=== PATIENT | male | born 1950 | race Caucasian/White ===

== ENCOUNTER 2017-10-17 12:50 | Inpatient (IN) | payer MEDICARE ==
[~2017-10-17] VITALS: Ht 172.7 cm; Wt 135.9 kg
[~2017-10-17 12:50] MED LIST: AMLO10TA2 PO; METO50TA18 PO; PRAM1TAB7 PO; TELM1TAB34 PO
[2017-10-17 15:03] LABS: BASOPHILS % (AUTO) 0.3 % (0.0-5.0); EOSINOPHILS % (AUTO) 2.2 % (0.0-8.0); HEMATOCRIT 40.1 % (42-54); LYMPHOCYTES % (AUTO) 23.9 % (21.0-51.0); MEAN CORPUSCULAR HEMOGLOBIN 28.8 pg (27.0-33.0); MEAN CORPUSCULAR HGB CONC 33.4 g/dL (32.0-36.0); MEAN CORPUSCULAR VOLUME 86.2 fL (79-99); MONOCYTES % (AUTO) 6.7 % (3.0-13.0); NEUTROPHILS % (AUTO) 66.9 % (40.0-77.0); PLATELET COUNT (AUTO) 228 K/uL (130-400); RED BLOOD CELL COUNT(AUTO) 4.65 MIL/uL (4.50-6.20); WHITE BLOOD COUNT (AUTO) 9.7 K/uL (4.8-10.8)
[2017-10-17 15:04] VITALS: BP 174/88
[2017-10-17 15:21] LABS: INR 1.06 (0.85-1.15); PARTIAL THROMBOPLASTIN TIME 29.5 SEC (26.3-35.5); PROTHROMBIN TIME 11.1 SEC (9.6-11.6)
[2017-10-17 15:24] LABS: CREATININE 0.9 mg/dL (0.5-1.5); POTASSIUM 3.8 mmol/L (3.5-5.1)
[2017-10-17] MEDS ORDERED: MELA10CA2 PO (15:33)
[2017-10-17] MEDS ORDERED: PRAM1TAB3 PO (15:33)
[2017-10-17] MEDS ORDERED: BIMA12.5OS OU (15:33)
[2017-10-17] MEDS ORDERED: MULT-1203 PO (15:34)
[2017-10-17] MEDS ORDERED: WATER FOR INJECTION,STERILE 20 ML VIAL IJ SCH (16:15)
[2017-10-18] MEDS: CEFAZOLIN SODIUM 1 GM VIAL IVP SCH (16:15)
[2017-10-19] MEDS: CEFAZOLIN SODIUM 1 GM VIAL IVP SCH (16:15)
[2017-10-20] VITALS (25 sets, daily range): BP systolic 85–178; BP diastolic 46–88
[2017-10-20] MEDS: CEFAZOLIN SODIUM 1 GM VIAL IVP SCH ×5 (07:00→23:44)
[2017-10-20] MEDS ORDERED: BUPIVACAINE/EPI/PF 0.25% 30ML VIAL IJ ONE (07:08)
[2017-10-20] MEDS ORDERED: TRANEXAMIC ACID 1000MG/10ML IV ONE (07:08)
[2017-10-20] MEDS ORDERED: CEFAZOLIN SODIUM 1 GM VIAL ONE (07:08)
[2017-10-20] MEDS ORDERED: SODIUM CHLORIDE 0.9% 1000ML 1,000 ML IV ONE (07:22)
[2017-10-20] MEDS ORDERED: GLYCOPYRROLATE 0.2 MG/ML 5 ML VIAL ONE (07:50)
[2017-10-20] MEDS ORDERED: SUCCINYLCHOLINE 200MG/10ML SYR ONE (07:50)
[2017-10-20] MEDS ORDERED: LIDOCAINE PF 2% 5ML ABBOJECT ONE (07:50)
[2017-10-20] MEDS ORDERED: NEOSTIGMINE METHYLSULFATE 1MG/ML IV ONE (07:50)
[2017-10-20] MEDS ORDERED: DEXAMETHASONE SOD PHOSPHATE 10MG/ML 1ML VIAL ONE (07:50)
[2017-10-20] MEDS ORDERED: ONDANSETRON HCL 4 MG/2 ML VIAL ONE (07:50)
[2017-10-20] MEDS ORDERED: MIDAZOLAM HCL 1 MG/ML 2ML VIAL ONE (07:51)
[2017-10-20] MEDS ORDERED: FENTANYL CITRATE PF 50 MCG/1 ML 2ML VIAL ONE ×2 (07:51→09:39)
[2017-10-20] MEDS ORDERED: PROPOFOL 10 MG/ML 20ML VIAL IV ONE (07:51)
[2017-10-20] MEDS ORDERED: ACETAMINOPHEN EXTRA STRENGTH 500 MG TABLET ONE (08:21)
[2017-10-20] MEDS ORDERED: KETOROLAC TROMETHAMINE 15MG/ML ONE (08:21)
[2017-10-20] MEDS ORDERED: OXYCODONE HCL 10 MG TAB.SR.12H PO ONE (08:22)
[2017-10-20] MEDS ORDERED: METOCLOPRAMIDE 10 MG/2 ML VIAL ONE (08:22)
[2017-10-20] MEDS ORDERED: CEFAZOLIN SODIUM 1 GM VIAL IRRIG ONE (09:27)
[2017-10-20] MEDS ORDERED: MORPHINE SULFATE 10 MG/ML 1ML SYG ONE (10:44)
[2017-10-20] MEDS ORDERED: DiphenhydrAMINE HCL 50 MG/ML VIAL IVP PRN (11:00)
[2017-10-20] MEDS ORDERED: TRAMADOL HCL 50 MG TABLET PO PRN (11:00)
[2017-10-20] MEDS ORDERED: CALCIUM CARBONATE 500 MG TABLET PO PRN (11:00)
[2017-10-20] MEDS ORDERED: POTASSIUM CHLORIDE 20 MEQ ERTAB PO PRN (11:00)
[2017-10-20] MEDS ORDERED: FERROUS FUMARATE 324 MG TABLET PO PRN (11:00)
[2017-10-20] MEDS ORDERED: PROMETHAZINE HCL 25 MG/ML 1ML AMPULE IM PRN (11:00)
[2017-10-20] MEDS ORDERED: TEMAZEPAM 15 MG CAPSULE PO PRN (11:00)
[2017-10-20] MEDS ORDERED: DIPHENHYDRAMINE HCL 25 MG CAPSULE PO PRN (11:00)
[2017-10-20] MEDS ORDERED: POTASSIUM CHLORIDE 20MEQ/100ML 100 ML IV PRN (11:00)
[2017-10-20] MEDS ORDERED: POTASSIUM CHLORIDE 10% ELIXIR 20 MEQ/15 ML UDCUP PO PRN (11:00)
[2017-10-20] MEDS ORDERED: LIDOCAINE HCL-MPF 1% 2ML VIAL IVP PRN (11:00)
[2017-10-20] MEDS: ACETAMINOPHEN 325 MG TAB PO SCH ×3 (11:00→22:46)
[2017-10-20] MEDS: INSULIN HUMULIN R 100 UNIT/ML 3ML SQ SCH ×3 (11:30→21:46)
[2017-10-20] MEDS: PSYLLIUM SEED 1 EACH PACKET PO SCH (12:00)
[2017-10-20] MEDS: SODIUM CHLORIDE 0.9% 1000ML 1,000 ML IV SCH ×2 (12:27→21:52)
[2017-10-20] MEDS: OXYCODONE HCL 5 MG TAB PO PRN ×3 (12:41→22:46)
[2017-10-20] MEDS ORDERED: PANT40TA25 PO (13:17)
[2017-10-20] MEDS ORDERED: CEFAZOLIN 3GM /D5W 100ML 100 ML IV SCH (16:00)
[2017-10-20] MEDS: WATER FOR INJECTION,STERILE 20 ML VIAL IJ SCH ×2 (16:09→23:45)
[2017-10-20] MEDS ORDERED: FAMOTIDINE 20MG TAB 20 MG TAB PO SCH (21:00)
[2017-10-20] MEDS ORDERED: PREGABALIN 25 MG CAP PO SCH (21:00)
[2017-10-20] MEDS: Bimatoprost (Lumigan 0.01% Ophth Soln) 1 DROP OU SCH (21:00)
[2017-10-20] MEDS: AMLODIPINE BESYLATE 5 MG TAB PO SCH (21:52)
[2017-10-20] MEDS: ASPIRIN 325 MG TABLET PO SCH (21:52)
[2017-10-20] MEDS: PRAMIPEXOLE DI-HCL 0.25 MG TABLET PO SCH (21:52)
[2017-10-20] MEDS: CELECOXIB 200 MG CAP PO SCH (21:52)
[2017-10-20] MEDS: PREGABALIN 75 MG CAPSULE PO SCH (21:52)
[2017-10-20] MEDS: KETOROLAC TROMETHAMINE 15MG/ML IV PRN (23:54)
[2017-10-21 04:00] VITALS: BP 163/77
[2017-10-21] MEDS: ACETAMINOPHEN 325 MG TAB PO SCH ×4 (04:43→22:46)
[2017-10-21] MEDS: OXYCODONE HCL 5 MG TAB PO PRN ×4 (04:43→20:03)
[2017-10-21 05:36] LABS: HEMATOCRIT 30.8 % (42-54); MEAN CORPUSCULAR HEMOGLOBIN 29.7 pg (27.0-33.0); MEAN CORPUSCULAR HGB CONC 34.4 g/dL (32.0-36.0); MEAN CORPUSCULAR VOLUME 86.3 fL (79-99); PLATELET COUNT (AUTO) 198 K/uL (130-400); RED BLOOD CELL COUNT(AUTO) 3.57 MIL/uL (4.50-6.20); WHITE BLOOD COUNT (AUTO) 12.6 K/uL (4.8-10.8)
[2017-10-21] MEDS: SODIUM CHLORIDE 0.9% 1000ML 1,000 ML IV SCH (05:43)
[2017-10-21 05:44] LABS: CREATININE 0.9 mg/dL (0.5-1.5); POTASSIUM 3.9 mmol/L (3.5-5.1)
[2017-10-21] MEDS: INSULIN HUMULIN R 100 UNIT/ML 3ML SQ SCH ×4 (06:22→21:40)
[2017-10-21] MEDS ORDERED: PANTOPRAZOLE SODIUM 40 MG TABLET.DR PO ONE (07:49)
[2017-10-21] MEDS: ASPIRIN 325 MG TABLET PO SCH ×2 (07:50→20:02)
[2017-10-21] MEDS: TAMSULOSIN HCL 0.4 MG CAP.ER.24H PO SCH (07:50)
[2017-10-21] MEDS: CELECOXIB 200 MG CAP PO SCH ×2 (07:50→20:02)
[2017-10-21] MEDS: METOPROLOL TARTRATE 50 MG TAB PO SCH (07:50)
[2017-10-21] MEDS: PREGABALIN 75 MG CAPSULE PO SCH ×2 (07:50→20:02)
[2017-10-21] MEDS: POLYETHYLENE GLYCOL 3350 17 GM POWD.PACK PO SCH (07:51)
[2017-10-21] MEDS: TELMISARTAN/HYDROCHLOROTHIAZID 80/12.5 MG TAB PO SCH (07:52)
[2017-10-21] MEDS: PANTOPRAZOLE SODIUM 40 MG TABLET.DR PO SCH (07:52)
[2017-10-21] MEDS: MULTIVITAMIN TABLET PO SCH (07:52)
[2017-10-21 07:53] VITALS: BP 156/73
[2017-10-21 11:28] VITALS: BP 146/73
[2017-10-21] MEDS: PSYLLIUM SEED 1 EACH PACKET PO SCH (12:04)
[2017-10-21] MEDS: KETOROLAC TROMETHAMINE 15MG/ML IV PRN ×2 (14:35→20:57)
[2017-10-21 16:26] VITALS: BP 173/78
[2017-10-21 20:00] VITALS: BP 174/78
[2017-10-21] MEDS: PRAMIPEXOLE DI-HCL 0.25 MG TABLET PO SCH (20:02)
[2017-10-21] MEDS: AMLODIPINE BESYLATE 5 MG TAB PO SCH (20:02)
[2017-10-21 20:50] LABS: APPEARANCE,URINE Clear (CLEAR); BILIRUBIN,URINE Negative (NEGATIVE); COLOR,URINE Yellow (YELLOW); GLUCOSE, URINE (UA) 500 mg/dL (NEGATIVE); KETONES,URINE Negative (NEGATIVE); LEUKOCYTE ESTERASE ,URINE Negative (NEGATIVE); NITRATE,URINE Negative (NEGATIVE); OCCULT BLOOD,URINE Large (NEGATIVE); PH,URINE 5.5 (5.0-8.0); PROTEIN,URINE Trace (NEGATIVE); UROBILINOGEN,URINE 0.2 mg/dL (0.2-1.0)
[2017-10-21] MEDS: Bimatoprost (Lumigan 0.01% Ophth Soln) 1 DROP OU SCH (21:00)
[2017-10-21 21:33] LABS: BACTERIA,URINE Rare /HPF (None Seen); MUCUS,URINE Rare LPF (None Seen); SQUAMOUS EPITHELIAL CELL,UR Rare /LPF (0-2); WBC,URINE 0-1 /HPF (0-1)
[2017-10-22] VITALS: BP 148/68
[2017-10-22 04:00] VITALS: BP 151/67
[2017-10-22] MEDS: ACETAMINOPHEN 325 MG TAB PO SCH ×4 (05:06→22:59)
[2017-10-22] MEDS: OXYCODONE HCL 5 MG TAB PO PRN ×3 (05:09→20:02)
[2017-10-22 05:44] LABS: HEMATOCRIT 27.6 % (42-54); MEAN CORPUSCULAR HEMOGLOBIN 29.3 pg (27.0-33.0); MEAN CORPUSCULAR HGB CONC 33.8 g/dL (32.0-36.0); MEAN CORPUSCULAR VOLUME 86.7 fL (79-99); PLATELET COUNT (AUTO) 175 K/uL (130-400); RED BLOOD CELL COUNT(AUTO) 3.18 MIL/uL (4.50-6.20); RED CELL DISTRIBUTION WIDTH 13.7 % (11.0-15.5); WHITE BLOOD COUNT (AUTO) 9.3 K/uL (4.8-10.8)
[2017-10-22 05:53] LABS: CREATININE 0.9 mg/dL (0.5-1.5); POTASSIUM 3.8 mmol/L (3.5-5.1)
[2017-10-22] MEDS: INSULIN HUMULIN R 100 UNIT/ML 3ML SQ SCH ×4 (06:26→21:42)
[2017-10-22 08:01] VITALS: BP 149/81
[2017-10-22] MEDS: CELECOXIB 200 MG CAP PO SCH ×2 (09:12→20:02)
[2017-10-22] MEDS: ASPIRIN 325 MG TABLET PO SCH ×2 (09:12→20:02)
[2017-10-22] MEDS: TAMSULOSIN HCL 0.4 MG CAP.ER.24H PO SCH (09:12)
[2017-10-22] MEDS: MULTIVITAMIN TABLET PO SCH (09:13)
[2017-10-22] MEDS: METOPROLOL TARTRATE 50 MG TAB PO SCH (09:13)
[2017-10-22] MEDS: TELMISARTAN/HYDROCHLOROTHIAZID 80/12.5 MG TAB PO SCH (09:13)
[2017-10-22] MEDS: PANTOPRAZOLE SODIUM 40 MG TABLET.DR PO SCH (09:13)
[2017-10-22] MEDS: PREGABALIN 75 MG CAPSULE PO SCH ×2 (09:13→20:02)
[2017-10-22] MEDS: POLYETHYLENE GLYCOL 3350 17 GM POWD.PACK PO SCH (09:13)
[2017-10-22] MEDS: KETOROLAC TROMETHAMINE 15MG/ML IV PRN (09:13)
[2017-10-22] MEDS ORDERED: BISACODYL 5 MG TABLET.DR PO PRN (11:00)
[2017-10-22 11:35] VITALS: BP 166/75
[2017-10-22] MEDS: PSYLLIUM SEED 1 EACH PACKET PO SCH (12:08)
[2017-10-22 16:45] VITALS: BP 158/70
[2017-10-22] MEDS ORDERED: ASPI-1012 PO (18:43)
[2017-10-22] MEDS ORDERED: HYDR-309 PO (18:43)
[2017-10-22] MEDS: Bimatoprost (Lumigan 0.01% Ophth Soln) 1 DROP OU SCH (19:59)
[2017-10-22 20:00] VITALS: BP 160/74
[2017-10-22] MEDS: PRAMIPEXOLE DI-HCL 0.25 MG TABLET PO SCH (20:02)
[2017-10-22] MEDS: AMLODIPINE BESYLATE 5 MG TAB PO SCH (20:02)
[2017-10-23] VITALS: BP 138/65
[2017-10-23] MEDS: OXYCODONE HCL 5 MG TAB PO PRN ×3 (02:39→10:17)
[2017-10-23 04:00] VITALS: BP 178/79
[2017-10-23] MEDS: KETOROLAC TROMETHAMINE 15MG/ML IV PRN (05:22)
[2017-10-23] MEDS: ACETAMINOPHEN 325 MG TAB PO SCH (05:22)
[2017-10-23 05:57] LABS: HEMATOCRIT 28.9 % (42-54); MEAN CORPUSCULAR HEMOGLOBIN 30.5 pg (27.0-33.0); MEAN CORPUSCULAR HGB CONC 35.3 g/dL (32.0-36.0); MEAN CORPUSCULAR VOLUME 86.4 fL (79-99); PLATELET COUNT (AUTO) 209 K/uL (130-400); RED BLOOD CELL COUNT(AUTO) 3.35 MIL/uL (4.50-6.20); RED CELL DISTRIBUTION WIDTH 13.7 % (11.0-15.5); WHITE BLOOD COUNT (AUTO) 12.9 K/uL (4.8-10.8)
[2017-10-23 06:05] LABS: POTASSIUM 3.9 mmol/L (3.5-5.1)
[2017-10-23] MEDS: INSULIN HUMULIN R 100 UNIT/ML 3ML SQ SCH (07:17)
[2017-10-23] MEDS: POLYETHYLENE GLYCOL 3350 17 GM POWD.PACK PO SCH (08:22)
[2017-10-23] MEDS: METOPROLOL TARTRATE 50 MG TAB PO SCH (08:23)
[2017-10-23] MEDS: ASPIRIN 325 MG TABLET PO SCH (08:23)
[2017-10-23] MEDS: PANTOPRAZOLE SODIUM 40 MG TABLET.DR PO SCH (08:23)
[2017-10-23] MEDS: CELECOXIB 200 MG CAP PO SCH (08:23)
[2017-10-23] MEDS: TAMSULOSIN HCL 0.4 MG CAP.ER.24H PO SCH (08:23)
[2017-10-23] MEDS: MULTIVITAMIN TABLET PO SCH (08:23)
[2017-10-23] MEDS: PREGABALIN 75 MG CAPSULE PO SCH (08:23)
[2017-10-23] MEDS: TELMISARTAN/HYDROCHLOROTHIAZID 80/12.5 MG TAB PO SCH (08:23)
[2017-10-23 08:51] VITALS: BP 184/89
[2017-10-23] MEDS ORDERED: BISACODYL 10 MG SUPP.RECT RC PRN (11:00)
== END 2017-10-23 10:27 | DRG 470 ==
LOC: DAHIP 10-20 06:24 → 4AH 10-20 11:40
PROVIDERS: ADMIT Orthopaedic Surgery; ATTEND Orthopaedic Surgery
PROC: 0SRD0J9 Replacement of Left Knee Joint with Synthetic Substitute, Cemented, Open Approach (ICD-10-PCS; principal; 2017-10-20 08:32)
PROC: 5A09357 Assistance with Respiratory Ventilation, Less than 24 Consecutive Hours, Continuous Positive Airway Pressure (ICD-10-PCS; 2017-10-21)
DX: M17.0 Bilateral primary osteoarthritis of knee (principal); E66.01 Morbid (severe) obesity due to excess calories; Z68.42 Body mass index [BMI] 45.0-49.9, adult; E11.9 Type 2 diabetes mellitus without complications; G89.29 Other chronic pain; I10 Essential (primary) hypertension; I25.10 Atherosclerotic heart disease of native coronary artery without angina pectoris; G47.30 Sleep apnea, unspecified; L40.9 Psoriasis, unspecified; Z98.42 Cataract extraction status, left eye; Z98.41 Cataract extraction status, right eye; Z98.84 Bariatric surgery status; Z83.1 Family history of other infectious and parasitic diseases; Z80.9 Family history of malignant neoplasm, unspecified; Z87.891 Personal history of nicotine dependence; Z88.2 Allergy status to sulfonamides; Z88.8 Allergy status to other drugs, medicaments and biological substances
CPT/HCPCS: 36415; 80048; 81001; 82948; 85025; 85027; 85610; 85730; 88305; 88311; 96374; 96375; C1713; J0330; J0690; J1100; J1815; J1885; J2001; J2250; J2270; J2405; J2704; J2710; J2765; J3010; J3490; J7030

== ENCOUNTER 2018-01-27 14:00 | Inpatient (IN) | payer MEDICARE ==
[~2018-01-27] VITALS: Ht 175.3 cm; Wt 136.4 kg
[~2018-01-27 14:00] MED LIST changes: +BIMA12.5OS OU; +MELA10CA2 PO; +MULT-1203 PO; +PANT40TA25 PO; +PRAM1TAB3 PO
[2018-01-27 15:30] VITALS: BP 180/80
[2018-01-27] MEDS ORDERED: PHARMACY COMMUNICATION MISC SCH (15:30)
[2018-01-27] MEDS ORDERED: LOSA1TAB42 PO (15:47)
[2018-01-27 16:03] LABS: CREATININE 0.8 mg/dL (0.5-1.5); POTASSIUM 4.2 mmol/L (3.5-5.1)
[2018-01-27 16:17] LABS: INR 0.99 (0.85-1.15); PARTIAL THROMBOPLASTIN TIME 27.5 SEC (26.3-35.5); PROTHROMBIN TIME 10.4 SEC (9.6-11.6)
[2018-01-27 16:37] LABS: APPEARANCE,URINE CLEAR (CLEAR); BILIRUBIN,URINE NEGATIVE (NEGATIVE); COLOR,URINE YELLOW (YELLOW); GLUCOSE, URINE (UA) NEGATIVE (NEGATIVE); KETONES,URINE NEGATIVE (NEGATIVE); LEUKOCYTE ESTERASE ,URINE NEGATIVE (NEGATIVE); NITRATE,URINE NEGATIVE (NEGATIVE); OCCULT BLOOD,URINE NEGATIVE (NEGATIVE); PH,URINE 5.5 (5.0-8.0); PROTEIN,URINE TRACE (NEGATIVE); UROBILINOGEN,URINE 0.2 mg/dL (0.2-1.0)
[2018-01-27 16:41] LABS: BACTERIA,URINE Rare /HPF (None Seen); RBC,URINE None Seen /HPF (0-1); WBC,URINE 0-1 /HPF (0-1)
[2018-01-28] VITALS (21 sets, daily range): BP systolic 148–197; BP diastolic 58–94
[2018-01-28] MEDS ORDERED: TRANEXAMIC ACID 1000MG/10ML IV ONE (09:15)
[2018-01-28] MEDS ORDERED: CEFAZOLIN SODIUM 1 GM VIAL ONE ×2 (09:15→09:23)
[2018-01-28] MEDS ORDERED: BUPIVACAINE/EPI/PF 0.25% 30ML VIAL IJ ONE (09:15)
[2018-01-28] MEDS ORDERED: NEOSTIGMINE 5MG/5ML SYR IV ONE (09:17)
[2018-01-28] MEDS ORDERED: ROPIVACAINE 0.5% 5MG/ML 30ML IJ ONE (09:17)
[2018-01-28] MEDS ORDERED: LIDOCAINE HCL-MPF 1% 5ML AMP IJ ONE ×2 (09:18→11:18)
[2018-01-28] MEDS ORDERED: MIDAZOLAM HCL 1 MG/ML 2ML VIAL ONE (09:18)
[2018-01-28] MEDS ORDERED: ROCURONIUM BROMIDE 10MG/1ML 5ML VL ONE ×2 (09:18→11:18)
[2018-01-28] MEDS ORDERED: FENTANYL CITRATE PF 50 MCG/1 ML 2ML VIAL ONE ×4 (09:18→13:05)
[2018-01-28] MEDS ORDERED: PROPOFOL 10 MG/ML 20ML VIAL IV ONE ×2 (09:18→11:36)
[2018-01-28] MEDS ORDERED: ACETAMINOPHEN EXTRA STRENGTH 500 MG TABLET ONE (09:19)
[2018-01-28] MEDS ORDERED: KETOROLAC TROMETHAMINE 15MG/ML ONE (09:19)
[2018-01-28] MEDS ORDERED: OXYCODONE HCL 10 MG TAB.SR.12H PO ONE (09:20)
[2018-01-28] MEDS ORDERED: SODIUM CHLORIDE 0.9% 1000ML 1,000 ML IV ONE (09:23)
[2018-01-28] MEDS ORDERED: TAMS0.4C32 PO (09:57)
[2018-01-28] MEDS ORDERED: PHENYLEPHRINE HCL 10 MG/ML 1ML VIAL IV ONE (11:19)
[2018-01-28] MEDS ORDERED: EPHEDRINE SULFATE 50 MG/ML AMPULE ONE (11:19)
[2018-01-28] MEDS ORDERED: POTASSIUM CHLORIDE 20MEQ/100ML 100 ML IV PRN (13:00)
[2018-01-28] MEDS ORDERED: CALCIUM CARBONATE 500 MG TABLET PO PRN (13:00)
[2018-01-28] MEDS ORDERED: DiphenhydrAMINE HCL 50 MG/ML VIAL IVP PRN (13:00)
[2018-01-28] MEDS ORDERED: DIPHENHYDRAMINE HCL 25 MG CAPSULE PO PRN (13:00)
[2018-01-28] MEDS ORDERED: TRAMADOL HCL 50 MG TABLET PO PRN (13:00)
[2018-01-28] MEDS ORDERED: POTASSIUM CHLORIDE 10% ELIXIR 20 MEQ/15 ML UDCUP PO PRN (13:00)
[2018-01-28] MEDS: ACETAMINOPHEN 325 MG TAB PO SCH ×2 (13:00→17:06)
[2018-01-28] MEDS ORDERED: TEMAZEPAM 15 MG CAPSULE PO PRN (13:00)
[2018-01-28] MEDS ORDERED: FERROUS FUMARATE 324 MG TABLET PO PRN (13:00)
[2018-01-28] MEDS ORDERED: POTASSIUM CHLORIDE 20 MEQ ERTAB PO PRN (13:00)
[2018-01-28] MEDS ORDERED: LIDOCAINE HCL-MPF 1% 2ML VIAL IVP PRN (13:00)
[2018-01-28] MEDS: KETOROLAC TROMETHAMINE 15MG/ML IV PRN ×2 (15:04→21:27)
[2018-01-28] MEDS: SODIUM CHLORIDE 0.9% 1000ML 1,000 ML IV SCH (15:05)
[2018-01-28] MEDS: INSULIN HUMULIN R 100 UNIT/ML 3ML SQ SCH ×2 (15:31→21:13)
[2018-01-28] MEDS: OXYCODONE HCL 5 MG TAB PO PRN ×2 (15:37→19:47)
[2018-01-28] MEDS: CEFAZOLIN 3GM /D5W 100ML 100 ML IV SCH (17:04)
[2018-01-28] MEDS ORDERED: CEFAZOLIN 3GM /D5W 100ML 100 ML IV SCH (18:00)
[2018-01-28] MEDS ORDERED: CEFAZOLIN SODIUM 1 GM VIAL IVP SCH (18:00)
[2018-01-28] MEDS: LATANOPROST 2.5 ML DROPS OU SCH (19:46)
[2018-01-28] MEDS: AMLODIPINE BESYLATE 5 MG TAB PO SCH (19:46)
[2018-01-28] MEDS: HYDROCHLOROTHIAZIDE 25 MG TABLET PO SCH (19:46)
[2018-01-28] MEDS: PRAMIPEXOLE DI-HCL 0.25 MG TABLET PO SCH (19:46)
[2018-01-28] MEDS: ASPIRIN 325 MG TABLET PO SCH (19:46)
[2018-01-28] MEDS: LOSARTAN 100 MG TABLET PO SCH (19:46)
[2018-01-28] MEDS: PREGABALIN 75 MG CAPSULE PO SCH (19:46)
[2018-01-29] VITALS (7 sets, daily range): BP systolic 139–190; BP diastolic 72–93
[2018-01-29] MEDS: ACETAMINOPHEN 325 MG TAB PO SCH ×4 (01:31→18:13)
[2018-01-29] MEDS: OXYCODONE HCL 5 MG TAB PO PRN ×3 (01:31→16:15)
[2018-01-29] MEDS: CEFAZOLIN 3GM /D5W 100ML 100 ML IV SCH (01:32)
[2018-01-29] MEDS: SODIUM CHLORIDE 0.9% 1000ML 1,000 ML IV SCH ×2 (01:46→08:51)
[2018-01-29] MEDS: METOPROLOL TARTRATE 50 MG TAB PO SCH (04:54)
[2018-01-29 05:43] LABS: HEMATOCRIT 30.4 % (42-54); MEAN CORPUSCULAR HEMOGLOBIN 27.4 pg (27.0-33.0); MEAN CORPUSCULAR HGB CONC 33.1 g/dL (32.0-36.0); MEAN CORPUSCULAR VOLUME 82.9 fL (79-99); PLATELET COUNT (AUTO) 273 K/uL (130-400); RED BLOOD CELL COUNT(AUTO) 3.67 MIL/uL (4.50-6.20); RED CELL DISTRIBUTION WIDTH 15.1 % (11.0-15.5); WHITE BLOOD COUNT (AUTO) 13.5 K/uL (4.8-10.8)
[2018-01-29 05:46] LABS: CREATININE 0.8 mg/dL (0.5-1.5); POTASSIUM 4.2 mmol/L (3.5-5.1)
[2018-01-29] MEDS: INSULIN HUMULIN R 100 UNIT/ML 3ML SQ SCH ×4 (06:44→20:28)
[2018-01-29] MEDS: PREGABALIN 75 MG CAPSULE PO SCH ×2 (08:26→19:28)
[2018-01-29] MEDS: POLYETHYLENE GLYCOL 3350 17 GM POWD.PACK PO SCH (08:26)
[2018-01-29] MEDS: ASPIRIN 325 MG TABLET PO SCH ×2 (08:27→19:28)
[2018-01-29] MEDS: PANTOPRAZOLE SODIUM 40 MG TABLET.DR PO SCH (08:27)
[2018-01-29] MEDS: MULTIVITAMIN TABLET PO SCH (08:27)
[2018-01-29] MEDS ORDERED: TAMSULOSIN HCL 0.4 MG CAP.ER.24H PO SCH ×2 (09:00)
[2018-01-29] MEDS: PSYLLIUM SEED 1 EACH PACKET PO SCH (11:53)
[2018-01-29] MEDS: AMLODIPINE BESYLATE 5 MG TAB PO SCH (19:28)
[2018-01-29] MEDS: PRAMIPEXOLE DI-HCL 0.25 MG TABLET PO SCH (19:28)
[2018-01-29] MEDS: LOSARTAN 100 MG TABLET PO SCH (19:28)
[2018-01-29] MEDS: HYDROCHLOROTHIAZIDE 25 MG TABLET PO SCH (19:29)
[2018-01-29] MEDS: LATANOPROST 2.5 ML DROPS OU SCH (19:31)
[2018-01-29] MEDS: KETOROLAC TROMETHAMINE 15MG/ML IV PRN (21:07)
[2018-01-30] MEDS: ACETAMINOPHEN 325 MG TAB PO SCH ×4 (01:13→18:53)
[2018-01-30 04:00] VITALS: BP 181/81
[2018-01-30] MEDS: KETOROLAC TROMETHAMINE 15MG/ML IV PRN (05:00)
[2018-01-30] MEDS: INSULIN HUMULIN R 100 UNIT/ML 3ML SQ SCH ×4 (05:46→21:00)
[2018-01-30 06:25] LABS: HEMATOCRIT 29.5 % (42-54); MEAN CORPUSCULAR HEMOGLOBIN 28.1 pg (27.0-33.0); MEAN CORPUSCULAR HGB CONC 34.3 g/dL (32.0-36.0); MEAN CORPUSCULAR VOLUME 81.9 fL (79-99); PLATELET COUNT (AUTO) 240 K/uL (130-400); RED CELL DISTRIBUTION WIDTH 15.4 % (11.0-15.5); WHITE BLOOD COUNT (AUTO) 11.5 K/uL (4.8-10.8)
[2018-01-30 06:35] LABS: CREATININE 0.7 mg/dL (0.5-1.5); POTASSIUM 3.8 mmol/L (3.5-5.1)
[2018-01-30 07:56] VITALS: BP 156/83
[2018-01-30] MEDS: POLYETHYLENE GLYCOL 3350 17 GM POWD.PACK PO SCH (08:00)
[2018-01-30] MEDS: METOPROLOL TARTRATE 50 MG TAB PO SCH (08:00)
[2018-01-30] MEDS: TAMSULOSIN HCL 0.4 MG CAP.ER.24H PO SCH (08:00)
[2018-01-30] MEDS: ASPIRIN 325 MG TABLET PO SCH ×2 (08:00→21:02)
[2018-01-30] MEDS: PREGABALIN 75 MG CAPSULE PO SCH ×2 (08:00→21:02)
[2018-01-30] MEDS: OXYCODONE HCL 5 MG TAB PO PRN ×3 (08:01→18:54)
[2018-01-30] MEDS: MULTIVITAMIN TABLET PO SCH (08:01)
[2018-01-30] MEDS: PANTOPRAZOLE SODIUM 40 MG TABLET.DR PO SCH (08:07)
[2018-01-30] MEDS: HCT PO SCH (09:00)
[2018-01-30] MEDS: MICARDIS PO SCH (09:00)
[2018-01-30 11:38] VITALS: BP 130/80
[2018-01-30] MEDS: PSYLLIUM SEED 1 EACH PACKET PO SCH (12:54)
[2018-01-30 16:00] VITALS: BP 114/57
[2018-01-30 20:00] VITALS: BP 168/75
[2018-01-30] MEDS: LATANOPROST 2.5 ML DROPS OU SCH (21:00)
[2018-01-30] MEDS: LOSARTAN 100 MG TABLET PO SCH (21:01)
[2018-01-30] MEDS: HYDROCHLOROTHIAZIDE 25 MG TABLET PO SCH (21:01)
[2018-01-30] MEDS: AMLODIPINE BESYLATE 5 MG TAB PO SCH (21:02)
[2018-01-30] MEDS: PRAMIPEXOLE DI-HCL 0.25 MG TABLET PO SCH (21:03)
[2018-01-31] VITALS: BP 135/68
[2018-01-31] MEDS: ACETAMINOPHEN 325 MG TAB PO SCH ×3 (01:30→13:11)
[2018-01-31] MEDS: OXYCODONE HCL 5 MG TAB PO PRN ×3 (01:31→13:11)
[2018-01-31 04:00] VITALS: BP 142/77
[2018-01-31 06:08] LABS: HEMATOCRIT 27.7 % (42-54); MEAN CORPUSCULAR HEMOGLOBIN 28.5 pg (27.0-33.0); MEAN CORPUSCULAR HGB CONC 34.4 g/dL (32.0-36.0); MEAN CORPUSCULAR VOLUME 82.9 fL (79-99); NUCLEATED RED BLOOD CELLS 0.1 % (0.0-0.19); PLATELET COUNT (AUTO) 213 K/uL (130-400); RED BLOOD CELL COUNT(AUTO) 3.34 MIL/uL (4.50-6.20); RED CELL DISTRIBUTION WIDTH 15.6 % (11.0-15.5); WHITE BLOOD COUNT (AUTO) 11.1 K/uL (4.8-10.8)
[2018-01-31] MEDS: INSULIN HUMULIN R 100 UNIT/ML 3ML SQ SCH ×2 (06:12→11:30)
[2018-01-31 06:14] LABS: CREATININE 0.9 mg/dL (0.5-1.5)
[2018-01-31 08:00] VITALS: BP 147/76
[2018-01-31] MEDS: HCT PO SCH (09:00)
[2018-01-31] MEDS: MICARDIS PO SCH (09:00)
[2018-01-31] MEDS: POLYETHYLENE GLYCOL 3350 17 GM POWD.PACK PO SCH (10:03)
[2018-01-31] MEDS: METOPROLOL TARTRATE 50 MG TAB PO SCH (10:03)
[2018-01-31] MEDS: ASPIRIN 325 MG TABLET PO SCH (10:03)
[2018-01-31] MEDS: PREGABALIN 75 MG CAPSULE PO SCH (10:03)
[2018-01-31] MEDS: PANTOPRAZOLE SODIUM 40 MG TABLET.DR PO SCH (10:03)
[2018-01-31] MEDS: MULTIVITAMIN TABLET PO SCH (10:03)
[2018-01-31] MEDS: TAMSULOSIN HCL 0.4 MG CAP.ER.24H PO SCH (10:03)
[2018-01-31 11:48] VITALS: BP 146/77
[2018-01-31] MEDS ORDERED: ASPI-1012 PO (12:54)
[2018-01-31] MEDS ORDERED: TAMS-1 PO (12:54)
[2018-01-31] MEDS ORDERED: HYDR-309 PO (12:54)
[2018-01-31] MEDS ORDERED: BISACODYL 10 MG SUPP.RECT RC PRN (13:00)
[2018-01-31] MEDS: PSYLLIUM SEED 1 EACH PACKET PO SCH (13:18)
== END 2018-01-31 15:50 | DRG 470 ==
LOC: EDSTATUS 14:00 → DAHIP 01-28 08:24 → 4AH 01-28 14:48
PROVIDERS: ADMIT Orthopaedic Surgery; ATTEND Orthopaedic Surgery
PROC: 0SRC0J9 Replacement of Right Knee Joint with Synthetic Substitute, Cemented, Open Approach (ICD-10-PCS; principal; 2018-01-28 11:21)
DX: M17.11 Unilateral primary osteoarthritis, right knee (principal); Z68.41 Body mass index [BMI] 40.0-44.9, adult; E11.9 Type 2 diabetes mellitus without complications; I10 Essential (primary) hypertension; N40.1 Benign prostatic hyperplasia with lower urinary tract symptoms; I25.10 Atherosclerotic heart disease of native coronary artery without angina pectoris; R33.8 Other retention of urine; E66.9 Obesity, unspecified; L40.9 Psoriasis, unspecified; Z96.652 Presence of left artificial knee joint; Z98.84 Bariatric surgery status; Z98.42 Cataract extraction status, left eye; Z98.41 Cataract extraction status, right eye; Z88.1 Allergy status to other antibiotic agents; Z88.8 Allergy status to other drugs, medicaments and biological substances; Z80.9 Family history of malignant neoplasm, unspecified
CPT/HCPCS: 36415; 76770; 80048; 81001; 82948; 85027; 85610; 85730; 88305; 88311; 93005; 97039; A4218; A4344; C1713; J0690; J1815; J1885; J2250; J2370; J2704; J2710; J2795; J3010; J3490; J7030

== ENCOUNTER → 2020-08-09 | Outpatient (CLI) | payer MEDICARE ==
[~2020-08-09] MED LIST changes: +AMLO-258 PO; -AMLO10TA2 PO; +ASPI-1012 PO; +HYDR-4457 PO; +LOSA1TAB42 PO; -PANT40TA25 PO; +PANT40TA54 PO; -PRAM1TAB7 PO; +TAMS-1 PO
== END | disposition home or self-care (01) ==
LOC: SHCH 15:31
PROVIDERS: ATTEND Internal Medicine Cardiovascular Disease
DX: I87.2 Venous insufficiency (chronic) (peripheral) (principal); K21.9 Gastro-esophageal reflux disease without esophagitis
CPT/HCPCS: 93970

== ENCOUNTER → 2020-08-15 | Outpatient (CLI) | payer MEDICARE ==
[~2020-08-15] MED LIST changes: +REGADENOSON 0.4 MG/5 ML PF SYG IVP SCH
== END | disposition home or self-care (01) ==
LOC: SHCH 08:30
PROVIDERS: ATTEND Internal Medicine Cardiovascular Disease
DX: I20.9 Angina pectoris, unspecified (principal); R06.00 Dyspnea, unspecified
CPT/HCPCS: 78452; 93017; 96374; A9500 ×2; J2785

== ENCOUNTER 2022-11-25 07:03 | Day surgery (SDC) | payer MEDICARE ==
[2022-11-21 11:19] VITALS: BP 204/85
[2022-11-25] VITALS (18 sets, daily range): BP systolic 129–194; BP diastolic 61–111
[~2022-11-25] VITALS: Ht 177.8 cm; Wt 140.4 kg
[~2022-11-25 07:03] MED LIST changes: -AMLO-258 PO; -ASPI-1012 PO; +BUPIVACAINE/PF 0.5% 30ML VIAL ONE; +DOXA8TAB81 PO; +FURO20TA4 PO; -HYDR-4457 PO; +ISOS30TA92 PO; -LOSA1TAB42 PO; +LOSA1TAB54 PO; +METF-444 PO; -MULT-1203 PO; -PANT40TA54 PO; +PRAM0.754 PO; -PRAM1TAB3 PO; -REGADENOSON 0.4 MG/5 ML PF SYG IVP SCH; +SEMA1PEN3 SQ; -TAMS-1 PO; -TELM1TAB34 PO
[2022-11-25 07:46] LABS: BASOPHILS % (AUTO) 0.2 % (0.0-5.0); EOSINOPHILS % (AUTO) 1.7 % (0.0-8.0); HEMATOCRIT 34.3 % (42-54); LYMPHOCYTES % (AUTO) 29.8 % (21.0-51.0); MEAN CORPUSCULAR HEMOGLOBIN 28.4 pg (27.0-33.0); MEAN CORPUSCULAR HGB CONC 32.1 g/dL (32.0-36.0); MEAN CORPUSCULAR VOLUME 88.6 fL (79-99); MONOCYTES % (AUTO) 9.1 % (3.0-13.0); PLATELET COUNT (AUTO) 208 K/uL (130-400); RED BLOOD CELL COUNT(AUTO) 3.87 MIL/uL (4.50-6.20); RED CELL DISTRIBUTION WIDTH 14.9 % (11.0-15.5); WHITE BLOOD COUNT (AUTO) 8.2 K/uL (4.8-10.8)
[2022-11-25] MEDS ORDERED: 0.9%NACL 1000ML 1,000 ML IV ONE (08:27)
[2022-11-25] MEDS ORDERED: CEFAZOLIN SODIUM 1 GM VIAL ONE (08:29)
[2022-11-25] MEDS ORDERED: FAMOTIDINE 20MG VIAL IV ONE (08:41)
[2022-11-25] MEDS ORDERED: HYDROMORPHONE 1 MG INJ ONE (08:42)
[2022-11-25] MEDS ORDERED: SUCCINYLCHOLINE 200MG/10ML SYR ONE (08:45)
[2022-11-25] MEDS ORDERED: LIDOCAINE PF 100MG/5ML (2%) SYRINGE 5ML ONE (08:45)
[2022-11-25] MEDS ORDERED: GLYCOPYRROLATE 1 MG/5 ML SYRINGE ONE (08:45)
[2022-11-25] MEDS ORDERED: PROPOFOL 10 MG/ML 20ML VIAL IV ONE (08:45)
[2022-11-25] MEDS ORDERED: FENTANYL CITRATE PF 50 MCG/1 ML 2ML VIAL ONE ×2 (08:45→11:09)
[2022-11-25] MEDS ORDERED: ROCURONIUM 10MG/1ML SYR 10 MG/ML ML ONE (09:14)
[2022-11-25] MEDS: CEFAZOLIN SODIUM 2 GM VIAL IVPB SCH ×2 (09:27→09:30)
[2022-11-25] MEDS ORDERED: NEOSTIGMINE 5MG/5ML SYR IV ONE (10:40)
[2022-11-25] MEDS ORDERED: ONDANSETRON 4MG INJ ONE (10:57)
[2022-11-25] MEDS ORDERED: HYDRALAZINE 20MG/ML VIAL ONE (11:05)
[2022-11-25] MEDS ORDERED: ACETAMINOPHEN 325 MG TAB ONE (12:28)
[2022-11-25] MEDS ORDERED: ACETAMINOPHEN 325 MG TAB PO PRN (13:00)
== END 2022-11-25 12:45 | disposition home or self-care (01) ==
LOC: DAH 07:03
PROVIDERS: ATTEND Surgery
DX: K43.0 Incisional hernia with obstruction, without gangrene (principal); M17.11 Unilateral primary osteoarthritis, right knee; I11.0 Hypertensive heart disease with heart failure; I50.9 Heart failure, unspecified; E11.9 Type 2 diabetes mellitus without complications; H40.9 Unspecified glaucoma; E78.5 Hyperlipidemia, unspecified; E66.01 Morbid (severe) obesity due to excess calories; M19.90 Unspecified osteoarthritis, unspecified site; Z79.84 Long term (current) use of oral hypoglycemic drugs; Z79.899 Other long term (current) drug therapy; Z72.89 Other problems related to lifestyle; Z87.891 Personal history of nicotine dependence; Z98.84 Bariatric surgery status; Z68.41 Body mass index [BMI] 40.0-44.9, adult; Z98.890 Other specified postprocedural states; Z20.822 Contact with and (suspected) exposure to COVID-19
CPT/HCPCS: 87426; 49592; 85025; 82948 ×2; 36415; 93005; A4663; A4452; C1781; J3490 ×3; J3010 ×2; J0690; J1170; J0330; J2710; J7030; J2001; J0360; J2704; J2405; G0168; A4930; A4215; A4223; A4222; A4221; A4600

== ENCOUNTER → 2023-08-13 | Outpatient (CLI) | payer MEDICARE ==
[~2023-08-13] MED LIST changes: -BUPIVACAINE/PF 0.5% 30ML VIAL ONE
== END | disposition home or self-care (01) ==
LOC: SHCH 13:11
PROVIDERS: ATTEND Internal Medicine Cardiovascular Disease
DX: I08.3 Combined rheumatic disorders of mitral, aortic and tricuspid valves (principal); I48.0 Paroxysmal atrial fibrillation; I11.9 Hypertensive heart disease without heart failure
CPT/HCPCS: 93306

== ENCOUNTER → 2023-08-25 | Outpatient (CLI) | payer MEDICARE | END | disposition home or self-care (01) | LOC: SHCH 10:21 | PROVIDERS: ATTEND Internal Medicine Cardiovascular Disease | DX: I87.2 Venous insufficiency (chronic) (peripheral) (principal); I87.1 Compression of vein | CPT/HCPCS: 93970 ==

== ENCOUNTER → 2023-09-16 | Outpatient (CLI) | payer MEDICARE ==
[2023-09-16 12:23] LABS: BASOPHILS # (AUTO) 0.02 K/uL (0.00-0.20); BASOPHILS % (AUTO) 0.2 % (0.0-5.0); EOSINOPHILS # (AUTO) 0.12 K/uL (0.00-0.70); EOSINOPHILS % (AUTO) 1.1 % (0.0-8.0); HEMATOCRIT 40.9 % (42-54); IMMATURE GRANULOCYTE ABSOLUTE 0.06 K/uL (0-1); LYMPHOCYTES # (AUTO) 2.8 K/uL (1.0-4.8); LYMPHOCYTES % (AUTO) 25.9 % (21.0-51.0); MEAN CORPUSCULAR HEMOGLOBIN 28.3 pg (27.0-33.0); MEAN CORPUSCULAR HGB CONC 31.1 g/dL (32.0-36.0); MEAN CORPUSCULAR VOLUME 91.1 fL (79-99); MONOCYTES # (AUTO) 0.8 K/uL (0.1-1.0); MONOCYTES % (AUTO) 7.1 % (3.0-13.0); NEUTROPHILS # (AUTO) 7.1 K/uL (1.8-7.7); NEUTROPHILS % (AUTO) 65.1 % (40.0-77.0); PLATELET COUNT (AUTO) 206 K/uL (130-400); RED BLOOD CELL COUNT(AUTO) 4.49 MIL/uL (4.50-6.20); RED CELL DISTRIBUTION WIDTH 15.6 % (11.0-15.5); WHITE BLOOD COUNT (AUTO) 10.9 K/uL (4.8-10.8)
[2023-09-16 12:54] LABS: CREATININE 1.4 mg/dL (0.5-1.5); POTASSIUM 4.8 mmol/L (3.5-5.1); THYROID STIMULATING HORMONE 2.23 uIU/mL (0.36-3.74)
== END | disposition home or self-care (01) ==
LOC: LAB 10:22
PROVIDERS: ATTEND Internal Medicine Cardiovascular Disease
DX: I10 Essential (primary) hypertension (principal); I48.91 Unspecified atrial fibrillation
CPT/HCPCS: 36415; 80048; 83880; 84443; 84484; 85025

== ENCOUNTER 2023-09-29 08:57 | Observation (INO) | payer MEDICARE ==
[2023-09-29] VITALS (17 sets, daily range): BP systolic 87–124; BP diastolic 64–91; PULSE 84–108; RESP 14–20; O2SAT 98
[~2023-09-29] VITALS: Ht 177.8 cm; Wt 90.4 kg
[2023-09-29 10:00] LABS: BASOPHILS # (AUTO) 0.02 K/uL (0.00-0.20); BASOPHILS % (AUTO) 0.2 % (0.0-5.0); EOSINOPHILS # (AUTO) 0.11 K/uL (0.00-0.70); EOSINOPHILS % (AUTO) 1.2 % (0.0-8.0); HEMATOCRIT 39.9 % (42-54); IMMATURE GRANULOCYTE ABSOLUTE 0.02 K/uL (0-1); LYMPHOCYTES # (AUTO) 2.5 K/uL (1.0-4.8); LYMPHOCYTES % (AUTO) 26.3 % (21.0-51.0); MEAN CORPUSCULAR HEMOGLOBIN 27.9 pg (27.0-33.0); MEAN CORPUSCULAR HGB CONC 31.1 g/dL (32.0-36.0); MEAN CORPUSCULAR VOLUME 89.9 fL (79-99); MONOCYTES # (AUTO) 0.7 K/uL (0.1-1.0); MONOCYTES % (AUTO) 7.2 % (3.0-13.0); NEUTROPHILS # (AUTO) 6.2 K/uL (1.8-7.7); NEUTROPHILS % (AUTO) 64.9 % (40.0-77.0); PLATELET COUNT (AUTO) 199 K/uL (130-400); RED BLOOD CELL COUNT(AUTO) 4.44 MIL/uL (4.50-6.20); RED CELL DISTRIBUTION WIDTH 16.1 % (11.0-15.5); WHITE BLOOD COUNT (AUTO) 9.5 K/uL (4.8-10.8)
[2023-09-29 10:09] LABS: CREATININE 1.3 mg/dL (0.5-1.5); POTASSIUM 4.8 mmol/L (3.5-5.1)
[2023-09-29 10:15] LABS: INR 1.1 (0.85-1.15); PROTHROMBIN TIME 12.7 SEC (9.6-11.6)
[2023-09-29 10:16] LABS: PARTIAL THROMBOPLASTIN TIME 30.7 SEC (26.3-35.5)
[2023-09-29] MEDS ORDERED: LIDOCAINE HCL 2% VISCOUS 15 ML UDCUP ONE (11:11)
[2023-09-29] MEDS ORDERED: 0.9%NACL 1000ML 1,000 ML IV ONE (11:11)
[2023-09-29] MEDS ORDERED: AMOX1TAB16 PO (11:37)
[2023-09-29] MEDS ORDERED: APIX5TAB PO (11:37)
[2023-09-29] MEDS ORDERED: FERR-82 PO (11:37)
[2023-09-29] MEDS ORDERED: PREVAGEN PO (11:37)
[2023-09-29] MEDS ORDERED: BUME1TAB7 PO (11:37)
[2023-09-29] MEDS ORDERED: LUTE1CAP4 PO (11:37)
[2023-09-29] MEDS ORDERED: ASPI-1026 PO (11:37)
[2023-09-29] MEDS ORDERED: METO-409 PO (11:37)
[2023-09-29] MEDS ORDERED: CEPH500C2 PO (11:37)
[2023-09-29] MEDS ORDERED: MIDAZOLAM HCL 1 MG/ML 2ML VIAL ONE (11:40)
[2023-09-29] MEDS ORDERED: FLUMAZENIL 0.1MG/1ML 5ML VIAL IV ONE (11:40)
[2023-09-29] MEDS ORDERED: NALOXONE HCL 0.4 MG/1 ML ML ONE (11:40)
[2023-09-29] MEDS ORDERED: FENTANYL CITRATE PF 50 MCG/1 ML 2ML VIAL ONE (11:40)
[2023-09-29] MEDS ORDERED: AMIODARONE 150MG VIAL 150 MG in DEXTROSE 5%-WATER 100 ML IV SCH (12:30)
[2023-09-29] MEDS ORDERED: AMIODARONE 900MG VIAL 360 MG in DEXTROSE 5%-WATER 200 ML IV SCH (12:30)
[2023-09-29] MEDS: AMIODARONE 900MG VIAL 540 MG in DEXTROSE 5%-WATER 300 ML IV SCH ×4 (13:28→21:38)
[2023-09-29] MEDS ORDERED: MAG/ALUM/SIMETH 30 ML UDCUP PO PRN (14:00)
[2023-09-29] MEDS ORDERED: MAGNESIUM 2GM PREMIX 50ML 50 ML IV PRN (14:00)
[2023-09-29] MEDS ORDERED: POTASSIUM CHLORIDE 20MEQ/100ML 100 ML IV PRN (14:00)
[2023-09-29] MEDS ORDERED: DEXTROSE 50%-WATER 50 ML DISP.SYRIN IV PRN (14:00)
[2023-09-29] MEDS ORDERED: POTASSIUM CHLORIDE 10% ELIXIR 20 MEQ/15 ML UDCUP PO PRN (14:00)
[2023-09-29] MEDS ORDERED: KCL 20 MEQ ERTAB PO PRN (14:00)
[2023-09-29] MEDS ORDERED: GLUCAGON 1MG KIT 1 MG ML IM PRN (14:00)
[2023-09-29] MEDS ORDERED: ONDANSETRON 4MG INJ IV PRN (14:00)
[2023-09-29] MEDS ORDERED: ACETAMINOPHEN 325 MG TAB PO PRN ×2 (14:00)
[2023-09-29 14:11] LABS: HEMOGLOBIN A1C 6.7 % (4.0-6.0)
[2023-09-29] MEDS ORDERED: CEFTRIAXONE 1G VIAL IVPB SCH (14:30)
[2023-09-29] MEDS: INSULIN HUMULIN R 100 UNIT/ML 3ML SQ SCH ×2 (16:30→22:07)
[2023-09-29] MEDS ORDERED: NON-FORMULARY MEDICATION 1 EACH (Metoprolol Succinate 150 MG) PO SCH (21:00)
[2023-09-29] MEDS ORDERED: MELATONIN 5 MG TABLET PO SCH (21:00)
[2023-09-29] MEDS ORDERED: METOPROLOL SUCCINATE 50 MG TAB.SR.24H PO SCH (21:00)
[2023-09-29] MEDS ORDERED: ([Prevagen] 1 TAB) PO SCH (21:00)
[2023-09-29] MEDS ORDERED: METO100T14 PO (21:52)
[2023-09-29] MEDS ORDERED: METOPROLOL TARTRATE 50 MG TAB PO SCH (22:00)
[2023-09-30 00:20] VITALS: BP 109/81; PULSE 90; RESP 22
[2023-09-30 00:52] VITALS: PULSE 92; RESP 19; O2SAT 99
[2023-09-30 03:20] VITALS: BP 117/80; PULSE 90; RESP 22
[2023-09-30 04:50] LABS: HEMATOCRIT 41.4 % (42-54); MEAN CORPUSCULAR HEMOGLOBIN 28.2 pg (27.0-33.0); MEAN CORPUSCULAR HGB CONC 31.2 g/dL (32.0-36.0); MEAN CORPUSCULAR VOLUME 90.6 fL (79-99); RED BLOOD CELL COUNT(AUTO) 4.57 MIL/uL (4.50-6.20); RED CELL DISTRIBUTION WIDTH 16.1 % (11.0-15.5); WHITE BLOOD COUNT (AUTO) 10.4 K/uL (4.8-10.8)
[2023-09-30 05:05] LABS: ALBUMIN 3.5 g/dL (3.5-5.0); BILIRUBIN,TOTAL 0.5 mg/dL (0.2-1.0); CREATININE 1.4 mg/dL (0.5-1.5); POTASSIUM 4.5 mmol/L (3.5-5.1); TOTAL PROTEIN, SERUM 6.6 g/dL (6.0-8.3)
[2023-09-30] MEDS: INSULIN HUMULIN R 100 UNIT/ML 3ML SQ SCH ×2 (07:30→11:30)
[2023-09-30 08:27] VITALS: BP 131/98; PULSE 103; RESP 16
[2023-09-30 09:00] VITALS: O2SAT 96
[2023-09-30] MEDS ORDERED: DOXAZOSIN MESYLATE 8 MG PO SCH (09:00)
[2023-09-30] MEDS ORDERED: ISOSORBIDE MONO 30MG SR TAB PO SCH (09:00)
[2023-09-30] MEDS ORDERED: METOPROLOL TARTRATE 50 MG TAB PO SCH (09:00)
[2023-09-30] MEDS ORDERED: METOPROLOL TARTRATE 150 MG PO SCH (09:00)
[2023-09-30] MEDS ORDERED: FENTANYL CITRATE PF 50 MCG/1 ML 2ML VIAL IVP ONE (11:00)
[2023-09-30] MEDS ORDERED: MIDAZOLAM HCL 1 MG/ML 5ML VIAL IVP ONE (11:00)
[2023-09-30] MEDS ORDERED: MIDAZOLAM HCL 1 MG/ML 2ML VIAL IV ONE (11:00)
[2023-09-30 12:00] VITALS: BP 137/86; PULSE 80; RESP 16
== END 2023-09-30 16:30 | disposition home or self-care (01) ==
LOC: DAH 08:57 → DAHIP 08:58 → INTOOBSV 08:58 → EDSTATUS 10:00 → 2DH 16:22
PROVIDERS: ADMIT Hospitalist; ATTEND Hospitalist
DX: I48.19 Other persistent atrial fibrillation (principal); I11.0 Hypertensive heart disease with heart failure; I50.32 Chronic diastolic (congestive) heart failure; E78.5 Hyperlipidemia, unspecified; D68.59 Other primary thrombophilia; D50.9 Iron deficiency anemia, unspecified; K21.9 Gastro-esophageal reflux disease without esophagitis; E11.9 Type 2 diabetes mellitus without complications; G47.00 Insomnia, unspecified; J44.9 Chronic obstructive pulmonary disease, unspecified; I25.10 Atherosclerotic heart disease of native coronary artery without angina pectoris; E66.9 Obesity, unspecified; I42.0 Dilated cardiomyopathy; I87.2 Venous insufficiency (chronic) (peripheral); I35.0 Nonrheumatic aortic (valve) stenosis; Z79.01 Long term (current) use of anticoagulants; Z79.84 Long term (current) use of oral hypoglycemic drugs; Z79.4 Long term (current) use of insulin; Z79.82 Long term (current) use of aspirin; Z68.28 Body mass index [BMI] 28.0-28.9, adult; Z98.84 Bariatric surgery status; Z87.19 Personal history of other diseases of the digestive system
CPT/HCPCS: 96376; 96365; 96366 ×2; 96375 ×2; 83036; 80048; 85025; 85610; 85730; 82948 ×6; 36415 ×2; 93312; 93005; 80053; 85027; 92960; 94660; J3010 ×2; J7030; J0696; J2250 ×2; J7060 ×3; J0282 ×3; J1815; A4215; A4223 ×3; A7002; A4222; A4221; A4663; A4216; A4606; G0378 ×3; 99152; J2310; J3490; G0500

== ENCOUNTER → 2024-01-05 | Outpatient (CLI) | payer MEDICARE ==
[~2024-01-05] MED LIST changes: +AMIO200T68 PO; +ASPI-1005 PO; +BUME1TAB6 PO; -FURO20TA4 PO; +LUTE1CAP4 PO; -MELA10CA2 PO; +MELA10TA2 PO; -METF-444 PO; +METF-446 PO; +METO100T14 PO; -METO50TA18 PO; -PRAM0.754 PO; +PRAM1TAB7 PO; -SEMA1PEN3 SQ; +SEMA2PEN SQ; +VIBE75TA PO
== END | disposition home or self-care (01) ==
LOC: WHH 10:35
PROVIDERS: ATTEND Nurse Practitioner Family
DX: T81.89XA Other complications of procedures, not elsewhere classified, initial encounter (principal); S21.101A Unspecified open wound of right front wall of thorax without penetration into thoracic cavity, initial encounter; L76.82 Other postprocedural complications of skin and subcutaneous tissue; E11.628 Type 2 diabetes mellitus with other skin complications; E11.22 Type 2 diabetes mellitus with diabetic chronic kidney disease; I13.0 Hypertensive heart and chronic kidney disease with heart failure and stage 1 through stage 4 chronic kidney disease, or unspecified chronic kidney disease; N18.9 Chronic kidney disease, unspecified; I50.40 Unspecified combined systolic (congestive) and diastolic (congestive) heart failure; E11.39 Type 2 diabetes mellitus with other diabetic ophthalmic complication; H40.89 Other specified glaucoma; E78.5 Hyperlipidemia, unspecified; K21.9 Gastro-esophageal reflux disease without esophagitis; I48.0 Paroxysmal atrial fibrillation; I25.2 Old myocardial infarction; G47.33 Obstructive sleep apnea (adult) (pediatric); I25.10 Atherosclerotic heart disease of native coronary artery without angina pectoris; G30.9 Alzheimer's disease, unspecified; F02.80 Dementia in other diseases classified elsewhere, unspecified severity, without behavioral disturbance, psychotic disturbance, mood disturbance, and anxiety; Z85.3 Personal history of malignant neoplasm of breast; Z95.1 Presence of aortocoronary bypass graft; Z85.828 Personal history of other malignant neoplasm of skin; Z79.899 Other long term (current) drug therapy; Z87.891 Personal history of nicotine dependence; X58.XXXA Exposure to other specified factors, initial encounter; Y83.8 Other surgical procedures as the cause of abnormal reaction of the patient, or of later complication, without mention of misadventure at the time of the procedure; Y92.238 Other place in hospital as the place of occurrence of the external cause; Y93.89 Activity, other specified; Y99.8 Other external cause status; Y92.89 Other specified places as the place of occurrence of the external cause
CPT/HCPCS: 11042

== ENCOUNTER → 2024-08-06 | Outpatient (CLI) | payer MEDICARE ==
[~2024-08-06] VITALS: Ht 177.8 cm; Wt 131.3 kg
[~2024-08-06] MED LIST changes: +APIX5TAB PO; +ASPI-1197 PO; +ATOR-2 PO; -BIMA12.5OS OU; -BUME1TAB6 PO; +BUME2TAB5 PO; +DAPA10TA PO; -DOXA8TAB81 PO; +FAMO20TA8 PO; +FERR-82 PO; +FURO40TA5 PO; -ISOS30TA92 PO; -LOSA1TAB54 PO; -LUTE1CAP4 PO; -MELA10TA2 PO; +NITR0.4T50 SL; +OMEP40CA21 PO; +SACU1TAB4 PO; +SACU1TAB7 PO; +SPIR25TA6 PO; +SUCR1TAB2 PO; +TIRZ2.5P SQ; +ceFAZolin SODIUM 2 GM VIAL IVPB SCH
[2024-08-06 11:58] LABS: BASOPHILS # (AUTO) 0.02 K/uL (0.00-0.20); BASOPHILS % (AUTO) 0.2 % (0.0-5.0); EOSINOPHILS # (AUTO) 0.15 K/uL (0.00-0.70); EOSINOPHILS % (AUTO) 1.7 % (0.0-8.0); HEMATOCRIT 37.7 % (42-54); IMMATURE GRANULOCYTE ABSOLUTE 0.01 K/uL (0-1); LYMPHOCYTES # (AUTO) 2.4 K/uL (1.0-4.8); LYMPHOCYTES % (AUTO) 26.9 % (21.0-51.0); MEAN CORPUSCULAR HEMOGLOBIN 27.9 pg (27.0-33.0); MEAN CORPUSCULAR HGB CONC 31.3 g/dL (32.0-36.0); MEAN CORPUSCULAR VOLUME 89.1 fL (79-99); MONOCYTES # (AUTO) 0.7 K/uL (0.1-1.0); MONOCYTES % (AUTO) 7.6 % (3.0-13.0); NEUTROPHILS # (AUTO) 5.7 K/uL (1.8-7.7); NEUTROPHILS % (AUTO) 63.5 % (40.0-77.0); PLATELET COUNT (AUTO) 246 K/uL (130-400); RED BLOOD CELL COUNT(AUTO) 4.23 MIL/uL (4.50-6.20); RED CELL DISTRIBUTION WIDTH 14.2 % (11.0-15.5); WHITE BLOOD COUNT (AUTO) 8.9 K/uL (4.8-10.8)
[2024-08-06 12:02] VITALS: PULSE 68; RESP 18; TEMP 98.7
[2024-08-06 12:14] LABS: INR 1.08 (0.85-1.15); PROTHROMBIN TIME 11.6 SEC (9.6-11.6)
[2024-08-06 12:15] LABS: PARTIAL THROMBOPLASTIN TIME 31.7 SEC (26.3-35.5)
[2024-08-06 13:02] LABS: CREATININE 1.1 mg/dL (0.5-1.3); POTASSIUM 4.5 mmol/L (3.5-5.1)
== END | disposition home or self-care (01) ==
LOC: DAH 10:00 → EDSTATUS 08-12 08:00
PROVIDERS: ATTEND Urology
DX: Z01.812 Encounter for preprocedural laboratory examination (principal); Z01.818 Encounter for other preprocedural examination; A63.0 Anogenital (venereal) warts; I25.10 Atherosclerotic heart disease of native coronary artery without angina pectoris; G47.33 Obstructive sleep apnea (adult) (pediatric); I48.91 Unspecified atrial fibrillation; E66.9 Obesity, unspecified; E11.9 Type 2 diabetes mellitus without complications; R60.0 Localized edema; Z96.653 Presence of artificial knee joint, bilateral; Z95.1 Presence of aortocoronary bypass graft; Z53.8 Procedure and treatment not carried out for other reasons
CPT/HCPCS: 71045; 80048; 85025; 85610; 85730; 36415; 93005; A6260

== ENCOUNTER 2024-08-26 08:12 | Day surgery (SDC) | payer MEDICARE ==
[2024-08-23 11:23] VITALS: BP 190/88; PULSE 66; RESP 18; TEMP 97.8
[2024-08-26] VITALS (13 sets, daily range): BP systolic 159–180; BP diastolic 60–88; PULSE 50–58; RESP 12–18; TEMP 97.1–97.9
[~2024-08-26] VITALS: Ht 180.3 cm; Wt 134.8 kg
[~2024-08-26 08:12] MED LIST changes: -AMIO200T68 PO; -ASPI-1005 PO; -ATOR-2 PO; -FAMO20TA8 PO; -FERR-82 PO; -FURO40TA5 PO; +HYDR50TA37 PO; -NITR0.4T50 SL; -SACU1TAB7 PO; -SEMA2PEN SQ; -VIBE75TA PO; -ceFAZolin SODIUM 2 GM VIAL IVPB SCH
[2024-08-26] MEDS: ceFAZolin SODIUM 2 GM VIAL ONE (09:04)
[2024-08-26] MEDS ORDERED: LIDOCAINE HCL-MPF 2% 5ML VIAL ONE (10:43)
[2024-08-26] MEDS ORDERED: dexaMETHasone SOD PHOSPHATE 10MG/ML 1ML VIAL ONE (10:57)
[2024-08-26] MEDS ORDERED: LIDOCAINE PF 100MG/5ML (2%) SYRINGE 5ML ONE (10:57)
[2024-08-26] MEDS ORDERED: proPOFol 10 MG/ML 20ML VIAL IV ONE ×2 (10:58→11:16)
[2024-08-26] MEDS ORDERED: GLYCOPYRROLATE 0.2 MG/ML 5 ML VIAL ONE (10:58)
[2024-08-26] MEDS ORDERED: FENTanyl CITRate PF 50 MCG/1 ML 2ML VIAL ONE (10:58)
[2024-08-26] MEDS ORDERED: NEOSTIGMINE METHYLSULFATE 1MG/ML IV ONE (10:58)
[2024-08-26] MEDS: LIDOCAINE HCL 1% 20 ML VIAL ONE (11:16)
[2024-08-26] MEDS: BACITRACIN 28.4 GM OINT TP ONE (11:25)
[2024-08-26] MEDS: 0.9%NACL 1000ML 1,000 ML IV ONE (11:33)
--- NOTE | 2024-08-26 11:56 | OP ---
DATE OF PROCEDURE: 08/26/2024 UROLOGIC OPERATIVE REPORT PREOPERATIVE DIAGNOSIS: A papillary ventral distal penile skin lesion, rule out condylomata. POSTOPERATIVE DIAGNOSIS: A papillary ventral distal penile skin lesion, rule out condylomata. OPERATION PERFORMED: Excision of 2 cm penile skin lesion. ANESTHESIA: General with local. DESCRIPTION OF PROCEDURE: The patient is a 73-year-old white male who presents with irritated papillary lesion of the ventral distal penile skin. I had tried topical Condylox, which was irritating to the skin without resolution of the penile skin lesion. The patient presents for local excision. The risks of surgery were discussed to include bleeding, infection, poor cosmetic result and the need for other procedures as clinically indicated. The patient reports understanding and agrees to proceed. The patient has been off his Eliquis for 48 hours. The patient was given preoperative Ancef. The patient was taken back to the operating room where anesthesia was given. The patient was prepped and draped in a supine position. The patient was noted to have a slightly irregular papillary epithelial lesion of the distal ventral penile skin approximately 1 cm from the cook. At this time, an elliptical incision was performed around this lesion. This was taken full thickness down to the underlying soft tissue. All bleeding was controlled with electrocautery. The skin edges were reapproximated with a running 4-0 Monocryl suture. Bacitracin was applied as well as a light wrap dressing. The patient was subsequently taken to the recovery room in stable condition. The patient is to follow up in 10-14 days for the results of his pathology. TID: [id number] RECEIPT: [id number]
[2024-08-26] MEDS ORDERED: TRAM50TA4 PO (12:54)
== END 2024-08-26 13:22 | disposition home or self-care (01) ==
LOC: DAH 08:12
PROVIDERS: ATTEND Urology
DX: A63.0 Anogenital (venereal) warts (principal); I10 Essential (primary) hypertension; M19.90 Unspecified osteoarthritis, unspecified site; E11.9 Type 2 diabetes mellitus without complications; E66.9 Obesity, unspecified; I25.10 Atherosclerotic heart disease of native coronary artery without angina pectoris; Z95.5 Presence of coronary angioplasty implant and graft; G47.33 Obstructive sleep apnea (adult) (pediatric); I48.91 Unspecified atrial fibrillation; Z68.41 Body mass index [BMI] 40.0-44.9, adult; Z98.42 Cataract extraction status, left eye; Z98.41 Cataract extraction status, right eye; Z98.84 Bariatric surgery status; Z96.652 Presence of left artificial knee joint; Z88.8 Allergy status to other drugs, medicaments and biological substances; Z98.890 Other specified postprocedural states; Z79.01 Long term (current) use of anticoagulants; Z79.899 Other long term (current) drug therapy
CPT/HCPCS: 11422; 82948 ×2; 88305; A6260; A4663; J7030 ×2; J3010; J1100; J2003; J2704; J3490; J2710; J0690; A4930; A4215; A4222; A4221; A4216; A4223 ×2; A4600

== ENCOUNTER 2025-07-31 16:40 | Emergency (ER) | payer MEDICARE ==
[~2025-07-31] VITALS: Ht 177.8 cm; Wt 141.5 kg
[~2025-07-31 16:40] MED LIST changes: -APIX5TAB PO; +ATOR10 PO; +BUME1TAB6 PO; -BUME2TAB5 PO; -DAPA10TA PO; +HYDR100T15 PO; -HYDR50TA37 PO; +PRAM1.5T7 PO; -PRAM1TAB7 PO; -SUCR1TAB2 PO; -TIRZ2.5P SQ; +TIRZ7.5P SQ
--- NOTE | 2025-07-31 16:53 | EKG ---
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
--- NOTE | 2025-07-31 16:57 | ERN ---
General Chief Complaint: Multiple Complaints Stated Complaint: AFIB, SHORTNESS OF BREATH, VERY DIZZY Time Seen by MD: 16:44 History of Present Illness Initial Comments 74-year-old male, history of obesity, AFib, diabetes, hypertension, high cholesterol, CABG, presents for near-syncope and dyspnea. Patient reports over the last week or so he has been having increased dyspnea on exertion. He has been feels palpitations. Today he was attempting dark outside and he had a near syncopal episode without actually loss of consciousness. No chest pain. He was recently stopped from amiodarone and started on Multaq 400 mg b.i.d. to control atrial fibrillation. The family reports that at home the heart rate has been in the 110's regularly recently. Patient also takes metoprolol, anticoagulated with Eliquis. PCP: [facility] Operator Assistant I Cementing: Rocío Zamarripa Business Continuity Strategy Director: Rocío Steward Allergies: Coded Allergies: Sulfa (Sulfonamide Antibiotics) (Unverified Allergy, Unknown, 12/10/23) Home Meds Reported Medications Pramipexole Di-HCl (Pramipexole Dihydrochloride) 1.5 Mg Tablet, 1 TAB PO DAILY for 30 Days, #30 TAB 0 Refills 05/13/25 Tirzepatide (Mounjaro) 7.5 Mg/0.5 Ml Pen.injctr, 7.5 MG SQ QWEEK 05/13/25 Hydralazine HCl (Hydralazine HCl) 100 Mg Tablet, 100 MG PO BID, TAB 05/13/25 Atorvastatin Calcium (LIPITOR) 20 Mg Tab, 1 TAB PO HS for 30 Days, #30 TAB 0 Refills 05/13/25 Sacubitril/Valsartan (Entresto 97 mg-103 mg Tablet) 97 Mg-103 Mg Tablet, 1 EACH PO DAILY, TAB 05/13/25 Bumetanide (Bumetanide) 1 Mg Tablet, 1 TAB PO DAILY for 30 Days, #30 TAB 0 Refills 05/13/25 Aspirin (Aspirin) 81 Mg Tab.chew, 81 MG PO DAILY, TAB.CHEW 08/09/24 Omeprazole (Omeprazole) 40 Mg Capsule.dr, 40 MG PO AM, CAP 01/16/24 Spironolactone (Spironolactone) 25 Mg Tablet, 25 MG PO AM, TAB 01/16/24 Metoprolol Tartrate (Metoprolol Tartrate) 100 Mg Tablet, 100 MG PO BID, TAB 12/02/23 Metformin HCl (Metformin HCl) 1,000 Mg Tablet, 2000 MG PO AM, TAB 12/02/23 Past Medical History Past Medical History: A-Fib, Diabetes-Type II, High Cholesterol, Hypertension Medical History Other: PT WEARING HEART MONITOR Past Surgical History: CABG Surgical History Other: HERNIA REPAIR X 2; BILATERAL KNEE REPLACEMENT; STOMACH SX Family History Family History: CAD, HTN Social History Social History: Negative, Lives with family ROS Dictation CONSTITUTIONAL: No chills, no fever, no weakness, no diaphoresis, no malaise. HEAD/FACE: No signs of trauma. EENT: No eye pain, no blurred vision, no tearing, no double vision, no ear pain, no ear discharge, no nose pain, no nasal congestion, no throat pain, no throat swelling, no mouth pain. RESPIRATORY: Dyspnea on exertion CARDIOVASCULAR: Near-syncope GASTROINTESTINAL/ABDOMINAL: No abdominal pain, no constipation, no diarrhea, no nausea, no vomiting. GENITOURINARY: No abnormal discharge, no dysuria, no frequent urination, no hematuria. No complaints of pain in the genitals. MUSCULOSKELETAL: No back pain, no gout, no joint pain, no joint swelling, no muscle pain, no muscle stiffness, no neck pain. INTEGUMENTARY: No change in color, no change in hair/nails, no dryness, no lesion, no lumps, no rash. NEUROLOGICAL/PSYCH: No anxiety, not depressed, no emotional problem, no headache, no numbness, no pre-existing deficit, no history of seizures, no tremors, no weakness. HEMATOLOGIC/LYMPHATIC: Not anemic, no history of blood clots, no apparent bleeding, no bruising, glands not swollen. All Systems Negative, Except as Noted. Physical Exam Physical Exam Dictation VITAL SIGNS: Reviewed. GENERAL APPEARANCE: Alert, oriented x3, no acute distress, obese. HEAD AND FACE: Non-traumatic. EYES: PERRL, pink conjunctivas, eyelid no trauma, anterior chamber clear. EARS: Pinnas intact and no signs of trauma or erythema. Ear canals clear and no discharge. TMs no erythema. NOSE: No discharge, no bleeding. OROPHARYNX: Mouth normal, teeth no caries, tongue pink. Pharynx clear, no erythema. Tonsils no exudates, no abscesses noted. Mucous membrane moist. NECK: Supple, non-tender, no thyromegaly, no masses, no JVD, no bruits. BREAST: Deferred. CHEST: No tenderness, no crepitus, no paradoxical movement, no retractions. LUNGS: Clear, well-ventilated, symmetric, no rales, no wheezing, no rhonchi, no stridor, good breath sounds bilaterally. HEART: Regular rate, regular rhythm, no murmur, no gallops. VASCULAR: No peripheral edema. ABDOMEN: Soft, positive bowel sounds, nondistended, no guarding, nontender, no rebound, no masses no hepatomegaly, no splenomegaly, no Bermudez's sign, no hernias. RECTAL: Deferred. GENITAL: Deferred. NEUROLOGICAL: Normal speech, gross motor function intact, gross sensory function intact. MUSCULOSKELETAL: Neck nontender, full range of motion, back nontender, full range of motion. EXTREMITIES: Nontender, full range of motion. SKIN: Color pink, dry, no turgor, no rash, no lacerations, no abrasions, no contusions. LYMPHATICS: Deferred. Results Laboratory and Microbiology Lab and Micro Result Laboratory Tests Test 07/31/25 16:56 07/31/25 17:32 07/31/25 18:05 White Blood Count 7.8 K/uL (4.8-10.8) Red Blood Count 3.61 MIL/uL (4.50-6.20) L Hemoglobin 8.4 g/dL (14.0-18.0) L Hematocrit 27.9 % (42-54) L Mean Corpuscular Volume 77.3 fL (79-99) L Mean Corpuscular Hemoglobin 23.3 pg (27.0-33.0) L Mean Corpuscular Hemoglobin Concent 30.1 g/dL (32.0-36.0) L Red Cell Distribution Width 17.1 % (11.0-15.5) H Platelet Count 222 K/uL (130-400) Mean Platelet Volume 11.1 fL (7.5-10.5) H Immature Granulocyte % (Auto) 0.4 % (0-1) Neutrophils (%) (Auto) 67.7 % (40.0-77.0) Lymphocytes (%) (Auto) 20.6 % (21.0-51.0) L Monocytes (%) (Auto) 9.5 % (3.0-13.0) Eosinophils (%) (Auto) 1.5 % (0.0-8.0) Basophils (%) (Auto) 0.3 % (0.0-5.0) Neutrophils # (Auto) 5.3 K/uL (1.8-7.7) Lymphocytes # (Auto) 1.6 K/uL (1.0-4.8) Monocytes # (Auto) 0.7 K/uL (0.1-1.0) Eosinophils # (Auto) 0.12 K/uL (0.00-0.70) Basophils # (Auto) 0.02 K/uL (0.00-0.20) Absolute Immature Granulocyte (auto 0.03 K/uL (0-1) Nucleated Red Blood Cells 0.0 % (0.0-0.19) Red Blood Cell Morphology See comments Sodium Level 144 mmol/L (136-145) Potassium Level 3.8 mmol/L (3.5-5.1) Chloride Level 108 mmol/L (101-111) Carbon Dioxide Level 26 mmol/L (21-32) Blood Urea Nitrogen 22 mg/dL (7-18) H Creatinine 1.2 mg/dL (0.5-1.3) Glomerular Filtration Rate Calc 63 mL/min (>90) Random Glucose 168 mg/dL (70-105) H Total Calcium 8.1 mg/dL (8.5-10.1) L Total Creatine Kinase 40 U/L (21-232) Troponin I High Sensitivity 40.4 ng/L (4-75) 42 ng/L (4-75) Blood Gas Specimen Type Arterial Arterial Blood pH 7.406 (7.350-7.450) Arterial Blood Partial Pressure CO2 36 mmHg (35-48) Arterial Blood Partial Pressure O2 78.0 mmHg (83.0-108.0) L Arterial Blood HCO3 22.0 mmol/L (21.0-28.0) Arterial Blood Oxygen Saturation 95.7 % (94.0-98.0) Arterial Blood Base Excess -2.0 mmol/L (-2.0-3.0) Blood Gas Temperature 37.0 CELSIUS (35.5-37.0) Blood Gas Vent Mode RA (ROOM AIR) FiO2 21.0 % Blood Gas Specimen Comment RR DR. TRISTAN B-Type Natriuretic Peptide 479 pg/mL (0-100) H MDM CC: Dyspnea on exertion, concern for atrial fibrillation being Historian: Patient Comorbidities: Obesity, CABG, CHF, atrial fibrillation, hypertension Differential diagnosis: Fluid overload, atrial fib with RVR, ACS, other Vital signs: Heart rate is 90-100 in the ER, blood pressure mildly elevated otherwise unremarkable vital signs Clinical exam shows mild fluid at the bases, pedal edema Patient is ambulatory able to walk with the restroom. He becomes mildly dyspneic but does not desaturate. EKG shows atrial fibrillation rate of 95 normal axis good R-wave progression intervals are stable Labs show leukocytosis. Meclizine has been in the ER pleural chemistries unremarkable. Troponin x2 normal. BNP mildly elevated. Chest x-ray shows pulmonary vascular congestion, otherwise unremarkable Patient received IV Bumex here in the ER I did consider admission for this patient. I offered him admission for diuresis, but since he is very stable I did offer an outpatient trial of doubling his Bumex for the next couple of days. He prefers to go home at this time. We discussed the risks and benefits he understands. He is going to double his dose of Bumex for the next few days. He has been going to follow up with his auto hiker. He will return to the emergency department as needed. ED Course Orders Procedure Category Date Status Time Arterial Blood Gas RT 07/31/25 Transmitted 16:46 Cbc With Differential LAB 07/31/25 Complete 16:46 Cardiac Panel LAB 07/31/25 Complete 16:46 Chest 1vw RAD 07/31/25 Resulted 16:46 12 Lead Ekg Tracing- EKG 07/31/25 Complete Technical 16:46 Basic Metabolic Panel LAB 07/31/25 Complete 16:46 Arterial Blood Gas LAB 07/31/25 Complete 17:32 B-Type Natriuretic LAB 07/31/25 Complete Peptide 17:45 Troponin I High LAB 07/31/25 Complete Sensitivity 17:53 Bumetanide 1mg/4ml PHA 07/31/25 In Process Vial (Bumex 1mg Vial) 19:30 Current Medications Medications (Trade) Dose Ordered Sig/Ellen Route PRN Reason Start Time Stop Time Status Last Admin Dose Admin Bumetanide (Bumex 1mg Vial) 1 mg ONCE ONCE IVP 07/31/25 19:30 07/31/25 19:31 07/31/25 19:19 Vital Signs Date Time Temp Pulse Resp B/P (MAP) Pulse Ox O2 Delivery O2 Flow Rate FiO2 07/31/25 18:43 98.8 90 16 152/92 97 Room Air* 0 21 07/31/25 17:00 98.8 84 19 132/74 98 Room Air* 0 21 07/31/25 16:42 97.0 82 19 127/75 97 Room Air 0 DX & DISP Disposition: Discharge Departure Impression: Primary Impression: Pulmonary edema Additional Impressions: Microcytic anemia, Atrial fibrillation Condition: Stable Additional Instructions: You have [id number] fluid overload on your chest x-ray. This is likely causing your shortness of breath. As we discussed, double your dose of Bumex codeine. I recommend taking 2 mg in the morning and 2 mg in the afternoon. Continue taking the spironolactone. Limit your fluid intake to 1.5 L. Avoid salty foods. I recommend that you weigh yourself every day. You likely need to lose five or more lb of water weight. If your symptoms do not improve within the next 48-72 hours, I recommend that you return to the emergency department. You may need admission for diuresis. Your EKG shows atrial fibrillation. The rate has been controlled here in the ER. Continue all of your atrial fibrillation medications (Multaq, metoprolol, Eliquis). If your heart rate raises above 110 consistently, return to the emergency department for re-evaluation. Also return to the ER if you develop fever, severe shortness of breath, or chest pains. Please return to the emergency department as needed. Otherwise, you can follow up with your primary doctor or Dr. Steward as an outpatient. Referrals: SELF,REFERRAL (PCP) ANGELITA TRISTAN DO Jul 31, 2025 16:57
[2025-07-31 17:24] LABS: IMMATURE GRANULOCYTE ABSOLUTE 0.03 K/uL (0-1); NUCLEATED RED BLOOD CELLS 0.0 % (0.0-0.19); PLATELET COUNT (AUTO) 222 K/uL (130-400); RED BLOOD CELL COUNT(AUTO) 3.61 MIL/uL (4.50-6.20); RED CELL DISTRIBUTION WIDTH 17.1 % (11.0-15.5); WHITE BLOOD COUNT (AUTO) 7.8 K/uL (4.8-10.8)
[2025-07-31 17:33] LABS: ABG BASE EXCESS -2.0 mmol/L (-2.0-3.0); ABG HCO3 22.0 mmol/L (21.0-28.0); ABG OXYGEN SATURATION 95.7 % (94.0-98.0); ABG PCO2 36 mmHg (35-48); ABG PH 7.406 (7.350-7.450); PO2, ARTERIAL BG 78.0 mmHg (83.0-108.0); TEMPERATURE, CELSIUS BG 37.0 CELSIUS (35.5-37.0); VENT MODE, BG RA (ROOM AIR)
[2025-07-31 17:34] LABS: CREATININE 1.2 mg/dL (0.5-1.3); GLOMERULAR FILTR. RATE CALC 63.0 mL/min (>90); GLUCOSE,RANDOM 168.0 mg/dL (70-105); SODIUM SERUM 144.0 mmol/L (136-145); UREA NITROGEN, BLOOD 22.0 mg/dL (7-18)
[2025-07-31 17:42] LABS: CREATINE KINASE, TOTAL 40.0 U/L (21-232)
--- NOTE | 2025-07-31 18:51 | HMCIMG ---
EXAM: CR Chest, 1 View. CLINICAL HISTORY: Dyspnea/SOB COMPARISON: Radiograph dated May 16, 2025 FINDINGS: There is mild bilateral perihilar and bibasilar airspace disease that may reflect mild pulmonary edema. No pleural effusion or pneumothorax. Mild to moderate cardiomegaly and pulmonary vascular congestion. Prior sternotomy. IMPRESSION: 1. Mild bilateral perihilar and bibasilar airspace disease, possibly representing mild pulmonary edema, with mild to moderate cardiomegaly and pulmonary vascular congestion. 2. No pleural effusion or pneumothorax. /[place]
[2025-07-31] MEDS: BUMETANIDE 1MG/4ML VIAL IVP ONE (19:19)
[2025-07-31 19:37] VITALS: BP 163/95; PULSE 95; RESP 17; TEMP 98.7; O2SAT 98
== END 2025-07-31 19:44 | disposition home or self-care (01) ==
LOC: EDH 16:40
DX: J81.1 Chronic pulmonary edema (principal); I48.91 Unspecified atrial fibrillation; D50.9 Iron deficiency anemia, unspecified; E78.00 Pure hypercholesterolemia, unspecified; I11.0 Hypertensive heart disease with heart failure; I50.9 Heart failure, unspecified; E11.9 Type 2 diabetes mellitus without complications; E66.9 Obesity, unspecified; Z88.2 Allergy status to sulfonamides; Z79.899 Other long term (current) drug therapy; Z79.01 Long term (current) use of anticoagulants; Z79.82 Long term (current) use of aspirin; Z79.85 Long-term (current) use of injectable non-insulin antidiabetic drugs; Z95.1 Presence of aortocoronary bypass graft; Z96.653 Presence of artificial knee joint, bilateral; Z98.890 Other specified postprocedural states
CPT/HCPCS: 99285; 96374; 71045; 82550; 84484 ×2; 80048; 82803; 83880; 85025; 36415; 93005; 36600; J3490

== ENCOUNTER 2025-08-15 06:39 | Day surgery (SDC) | payer MEDICARE ==
[2025-08-12 11:35] LABS: IMMATURE GRANULOCYTE ABSOLUTE 0.02 K/uL (0-1); NUCLEATED RED BLOOD CELLS 0.0 % (0.0-0.19); PLATELET COUNT (AUTO) 249 K/uL (130-400); RED BLOOD CELL COUNT(AUTO) 3.84 MIL/uL (4.50-6.20); RED CELL DISTRIBUTION WIDTH 16.3 % (11.0-15.5); WHITE BLOOD COUNT (AUTO) 9.5 K/uL (4.8-10.8)
[2025-08-12 11:41] LABS: CREATININE 1.5 mg/dL (0.5-1.3); GLOMERULAR FILTR. RATE CALC 48.0 mL/min (>90); GLUCOSE,RANDOM 129.0 mg/dL (70-105); SODIUM SERUM 141.0 mmol/L (136-145); UREA NITROGEN, BLOOD 37.0 mg/dL (7-18)
[2025-08-12 11:44] VITALS: BP 137/79; PULSE 77; RESP 17; TEMP 97.3
[2025-08-12 11:59] LABS: INR 1.12 (0.85-1.15)
--- NOTE | 2025-08-12 15:38 | NUR ---
REPORT REPORTED H&H TO LUCIA BLEDSOE. OK TO PROCEED
[~2025-08-15] VITALS: Ht 177.8 cm; Wt 142.8 kg
[~2025-08-15 06:39] MED LIST changes: +AMIO400T4 PO; +APIX5TAB PO; -BUME1TAB6 PO; +BUME1TAB7 PO; +DAPA10TA PO; +GLUC1TAB61 PO; +MAGN400C PO; +MIDAZOLAM HCL 1 MG/ML 2ML VIAL IVP ONE; +PREVAGEN PO; +VIT1CAPS5 PO
[2025-08-15 07:10] VITALS: BP 118/83; PULSE 89; RESP 17; TEMP 97.5
--- NOTE | 2025-08-15 08:31 | NUR ---
PT SYNCHRONIZED CARDIOVERTED [address] EVERTON BROWER PT TOLERATED WELL CONVERTED BACK TO NSR VSS NAD.
--- NOTE | 2025-08-15 08:38 | NUR ---
PT DROWSY SPEAKING WITH STAFF AND SERAFIN ALVAREZ.
[2025-08-15] MEDS: MIDAZOLAM HCL 1 MG/ML 2ML VIAL IVP ONE ×2 (08:49→08:50)
[2025-08-15 08:50] VITALS: BP 104/60; PULSE 71; RESP 17; TEMP 97.7
[2025-08-15 08:55] VITALS: BP 110/63; PULSE 71; RESP 16
[2025-08-15 09:00] VITALS: BP 120/65; PULSE 70; RESP 17
[2025-08-15 09:15] VITALS: BP 119/67; PULSE 71; RESP 16
[2025-08-15 09:30] VITALS: BP 105/67; PULSE 72; RESP 16
--- NOTE | 2025-08-15 09:45 | NUR ---
BOTH PT AND SPOUSE GIVEN VERBAL AND WRITTEN DISCHARGE INSTRUCTIONS IV REMOVED SITE ASYMPTOMATIC. PT TAKEN OUT VIA WHEELCHAIR SPOUSE DRIVING
--- NOTE | 2025-08-15 09:45 | EKG ---
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 : 1950 Requested By: EVERTON BROWER Order Number: [id number] Reading MD: Selene Puente Measurements Intervals [place] Rate: 72 P: 5 NE: 200 QRS: 37 QRSD: 103 T: -40 QT: 429 QTc: 466 Interpretive Statements Incomplete analysis due to missing data in precordial lead(s) Sinus rhythm Multiple ventricular premature complexes Probable left atrial enlargement ST elevation, consider inferior injury Compared to ECG 08/15/2025 06:51:51 ST (T wave) deviation now present Myocardial infarct finding now present Atrial fibrillation no longer present Electronically Signed On 08-18-2025 12:39:55 EGG PACKER by Selene Puente Please click the below link to view image of tracing.
--- NOTE | 2025-08-15 19:57 | EKG ---
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
--- NOTE | 2025-08-25 09:14 | PRN ---
Procedure Note INDICATION FOR PROCEDURE: [] symptomatic af PROCEDURE: [] conscious sedation DCCV x 1 200j synchronized DATE OF PROCEDURE: 08/15/2025 COURTESY DRIVER: Danilo Steward MD [facility] PROCEDURE NOTE: [] pt was adequately sedated with 3mg Versed and 75mcg fentanyl. This was followed by DCCV x 1 with synchronized energy at 200j x 1 with uatsdin of NSR FINDINGS: [] Siccessful DCCV [facility] of NSR PLAN: [] COntinue with Anticoagulation and beta blockade DC home later this DANILO Hinojosa MD Aug 25, 2025 09:14
== END 2025-08-15 09:52 | disposition home or self-care (01) ==
LOC: DAH 06:39
PROVIDERS: ATTEND Internal Medicine Cardiovascular Disease
DX: I48.0 Paroxysmal atrial fibrillation (principal); I25.10 Atherosclerotic heart disease of native coronary artery without angina pectoris; I11.0 Hypertensive heart disease with heart failure; I50.31 Acute diastolic (congestive) heart failure; M19.90 Unspecified osteoarthritis, unspecified site; I25.5 Ischemic cardiomyopathy; E78.5 Hyperlipidemia, unspecified; J44.9 Chronic obstructive pulmonary disease, unspecified; G47.33 Obstructive sleep apnea (adult) (pediatric); I35.0 Nonrheumatic aortic (valve) stenosis; E11.51 Type 2 diabetes mellitus with diabetic peripheral angiopathy without gangrene; I87.2 Venous insufficiency (chronic) (peripheral); E66.01 Morbid (severe) obesity due to excess calories; Z68.42 Body mass index [BMI] 45.0-49.9, adult; Z80.9 Family history of malignant neoplasm, unspecified; Z88.2 Allergy status to sulfonamides; Z79.899 Other long term (current) drug therapy; Z98.890 Other specified postprocedural states
CPT/HCPCS: 80048; 85025; 85610; 85730; 36415; 93005 ×2; 99152; 92960; A4223 ×3; J3010; J2250 ×3; A4215; A4222; A4221; A4663; A4216; A4606; G0500

== ENCOUNTER 2025-08-23 19:17 | Inpatient (IN) | payer MEDICARE ==
[~2025-08-23] VITALS: Ht 177.8 cm; Wt 142.8 kg
[~2025-08-23 19:17] MED LIST changes: -MIDAZOLAM HCL 1 MG/ML 2ML VIAL IVP ONE
--- NOTE | 2025-08-23 19:32 | ERN ---
General Chief Complaint: Dizzy/Light Headed Stated Complaint: DIZZINESS, WEAKNESS Time Seen by MD: 19:20 History of Present Illness Initial Comments 74-year-old male with a extensive past medical history including CHF, [place], CAD, hypertension, hyperlipidemia, COPD here for evaluation of generalized weakness and shortness a breath. As per EMS patient has been having progressively worsening dizziness and weakness earlier today. Thus they decided to come to the emergency room for evaluation. Denies any chest pain. Allergies: Coded Allergies: Sulfa (Sulfonamide Antibiotics) (Unverified Allergy, Unknown, 12/10/23) Home Meds Reported Medications Glucosamine/Chondro Estrada A (Glucosamine-Chondroitin Tab) 500 Mg-400 Mg Tablet, 1 EACH PO BID, TAB 08/12/25 Vit A/Vit C/Vit E/Zinc/Copper (Preservision Areds Softgel) 4,296-226 Capsule, 1 EACH PO HS, CAP 08/12/25 [Prevagen] No Conflict Check, 1 CAP PO DAILY 08/12/25 Magnesium Oxide (Magnesium) 400 Mg Magnesium Capsule, 400 MG PO DAILY, CAP 08/12/25 Dapagliflozin Propanediol (Farxiga) 10 Mg Tablet, 10 MG PO DAILY, TAB 08/12/25 Apixaban (Eliquis) 5 Mg Tablet, 5 MG PO BID, TAB 08/12/25 Bumetanide (Bumex) 1 Mg Tab, 1 MG PO HS, TAB 08/12/25 Bumetanide (Bumex) 1 Mg Tab, 2 MG PO DAILY, TAB 08/12/25 Amiodarone HCl (Amiodarone HCl) 400 Mg Tablet, 400 MG PO BID, TAB 08/12/25 Pramipexole Di-HCl (Pramipexole Dihydrochloride) 1.5 Mg Tablet, 1 TAB PO HS for 30 Days, #30 TAB 0 Refills 05/13/25 Tirzepatide (Mounjaro) 7.5 Mg/0.5 Ml Pen.injctr, 7.5 MG SQ QWEEK 05/13/25 Hydralazine HCl (Hydralazine HCl) 100 Mg Tablet, 100 MG PO BID, TAB 05/13/25 Atorvastatin Calcium (LIPITOR) 20 Mg Tab, 1 TAB PO HS for 30 Days, #30 TAB 0 Refills 05/13/25 Sacubitril/Valsartan (Entresto 97 mg-103 mg Tablet) 97 Mg-103 Mg Tablet, 1 EACH PO DAILY, TAB 05/13/25 Aspirin (Aspirin) 81 Mg Tab.chew, 81 MG PO DAILY, TAB.CHEW 08/09/24 Omeprazole (Omeprazole) 40 Mg Capsule.dr, 40 MG PO AM, CAP 01/16/24 Spironolactone (Spironolactone) 25 Mg Tablet, 25 MG PO AM, TAB 01/16/24 Metoprolol Tartrate (Metoprolol Tartrate) 100 Mg Tablet, 150 MG PO BID, TAB 12/02/23 Metformin HCl (Metformin HCl) 1,000 Mg Tablet, 1000 MG PO HS, TAB 12/02/23 Past Medical History Past Medical History: A-Fib, Diabetes-Type II, High Cholesterol, Hypertension Medical History Other: PT WEARING HEART MONITOR Past Surgical History: CABG Surgical History Other: HERNIA REPAIR X 2; BILATERAL KNEE REPLACEMENT; STOMACH SX Family History Family History: CAD, HTN Social History Social History: Negative, Lives with family Constitutional: (+) malaise, (+) weakness Physical Exam General Appearance: (+) no apparent distress, (+) obese Orientation: (+) alert, (+) oriented x 3 Head/Face Trauma: Yes Eye: bilateral eye normal inspection, bilateral eye PERRL, bilateral eye EOMI Ear, Nose, Throat: (+) hearing grossly normal, (+) normal ENT inspection, (+) moist mucous membraine Neck: (+) normal inspection, (+) supple, (+) full range of motion Respiratory: (+) chest non-tender, (+) other documentation (Increased work of breathing) Respiratory Comment On 2 L nasal cannula Heart: (+) regular; (-) murmur Gastrointestinal: (+) soft, (+) non-tender Back: (+) normal inspection Neurologic/Psychiatric: (+) normal speech Results Laboratory and Microbiology Lab and Micro Result Laboratory Tests Test 08/23/25 19:39 08/23/25 19:45 08/23/25 20:18 White Blood Count 18.1 K/uL (4.8-10.8) H Red Blood Count 3.56 MIL/uL (4.50-6.20) L Hemoglobin 8.3 g/dL (14.0-18.0) L Hematocrit 27.9 % (42-54) L Mean Corpuscular Volume 78.4 fL (79-99) L Mean Corpuscular Hemoglobin 23.3 pg (27.0-33.0) L Mean Corpuscular Hemoglobin Concent 29.7 g/dL (32.0-36.0) L Red Cell Distribution Width 17.2 % (11.0-15.5) H Platelet Count 219 K/uL (130-400) Mean Platelet Volume 11.0 fL (7.5-10.5) H Immature Granulocyte % (Auto) 0.6 % (0-1) Neutrophils (%) (Auto) 88.9 % (40.0-77.0) H Lymphocytes (%) (Auto) 5.0 % (21.0-51.0) L Monocytes (%) (Auto) 5.4 % (3.0-13.0) Eosinophils (%) (Auto) 0.0 % (0.0-8.0) Basophils (%) (Auto) 0.1 % (0.0-5.0) Neutrophils # (Auto) 16.1 K/uL (1.8-7.7) H Lymphocytes # (Auto) 0.9 K/uL (1.0-4.8) L Monocytes # (Auto) 1.0 K/uL (0.1-1.0) Eosinophils # (Auto) 0.00 K/uL (0.00-0.70) Basophils # (Auto) 0.02 K/uL (0.00-0.20) Absolute Immature Granulocyte (auto 0.10 K/uL (0-1) Nucleated Red Blood Cells 0.0 % (0.0-0.19) White Cell Morphology Comment CONSISTENT W/DIFF Red Blood Cell Morphology See comments Sodium Level 135 mmol/L (136-145) L Potassium Level 4.2 mmol/L (3.5-5.1) Chloride Level 101 mmol/L (101-111) Carbon Dioxide Level 27 mmol/L (21-32) Blood Urea Nitrogen 33 mg/dL (7-18) H Creatinine 1.7 mg/dL (0.5-1.3) H Glomerular Filtration Rate Calc 42 mL/min (>90) Random Glucose 166 mg/dL (70-105) H Total Calcium 8.1 mg/dL (8.5-10.1) L Magnesium Level 2.20 mg/dL (1.80-2.40) Troponin I High Sensitivity 36 ng/L (4-75) B-Type Natriuretic Peptide 2030 pg/mL (0-100) H Influenza Type A Antigen Negative For Type A Influenza Type B Antigen Negative For Type B SARS-CoV-2 Antigen (Rapid) PRESUMPTIVE NEGATIVE Urine Color YELLOW (YELLOW) Urine Appearance CLEAR (CLEAR) Urine pH 5.5 (5.0-8.0) Urine Specific [place] 1.029 (1.001-1.031) Urine Protein 30 mg/dL (NEGATIVE) H Urine Glucose (UA) >=1000 mg/dL (NEGATIVE) H Urine Ketones 5 mg/dL (NEGATIVE) H Urine Occult Blood SMALL (NEGATIVE) H Urine Nitrate NEGATIVE (NEGATIVE) Urine Bilirubin SMALL mg/dL (NEGATIVE) H Urine Urobilinogen 1.0 mg/dL (0.2-1.0) Urine Leukocyte Esterase NEGATIVE Hu/uL Urine RBC TNTC /HPF (0-1) H Urine WBC 2-5 /HPF (0-1) H Urine Squamous Epithelial Cells RARE /HPF (0-2) Urine Bacteria RARE /HPF (None Seen) MDM MDM: DIFFERENTIAL DIAGNOSIS:. UTI, URI, sepsis, pneumonia, CHF exacerbation, COPD exacerbation RATIONALE: TESTS CONSIDERED AND ORDERED SECONDARY TO SHARED DECISION MAKING INCLUDE: PREVIOUS OUTSIDE RECORDS REVIEWED: OLD ER VISITS. RISK OF COMPLICATION AND/OR MORBIDITY OR MORTALITY OF PATIENT MANAGEMENT: NONE MEDICATIONS-PER MEDICATION RECONCILIATION NEED FOR HOSPITALIZATION: PATIENT DOES NOT MEET CRITERIA FOR HOSPITALIZATION. NEED FOR EMERGENCY MAJOR/MINOR SURGERY: NO THERE ARE NO SOCIAL CONCERNS WITH THIS PATIENT. PRESCRIPTION DRUG MANAGEMENT PRESCRIPTIONS WILL INCLUDE SYMPTOMATIC CARE PATIENT'S PRIOR EXTERNAL MEDICAL RECORDS FROM OTHER ER VISITS WERE REVIEWED BY ME INDICATED. PRIOR TESTING AND RESULTS FROM PREVIOUS VISITS WERE REVIEWED. PRIOR TESTS WERE TAKEN INTO ACCOUNT WITH MEDICAL DECISION MAKING AND RESOURCE UTILIZATION, INDEPENDENT HISTORIAN/HISTORIANS WERE USED TO OBTAIN COMPLETE MEDICAL HISTORY. I INDEPENDENTLY INTERPRETED THE TEST THAT WERE PERFORMED, RESULTS WERE REVIEWED BY ME AND CONSIDERED FINDINGS ON RADIOLOGY IF ORDERED. MEDICAL MANAGEMENT AND EXAMINATION INTERPRETATION DISCUSSIONS WERE HAD BY ME WITH OTHER QUALIFIED HEALTHCARE PROFESSIONALS INDICATED FOR THE PATIENT'S CARE. ED Course Orders Procedure Category Date Status Time Cbc With Differential LAB 08/23/25 Complete 19:20 Basic Metabolic Panel LAB 08/23/25 Complete 19:20 12 Lead Ekg Tracing- EKG 08/23/25 Complete Technical 19:20 Chest 1vw RAD 08/23/25 Taken 19:20 Troponin I High LAB 08/23/25 Complete Sensitivity 19:20 Urinalysis Profile LAB 08/23/25 Complete 19:20 Magnesium LAB 08/23/25 Complete 19:20 B-Type Natriuretic LAB 08/23/25 Complete Peptide 19:28 Influenza Type A & B, LAB 08/23/25 Complete Rapid 19:35 Covid19 (Sars Antigen LAB 08/23/25 Complete Rapid) 19:35 Furosemide 40mg Vial PHA 08/23/25 Complete (Lasix 40mg Vial) 21:00 Ceftriaxone 1g Vial PHA 08/23/25 Complete (Rocephine 1g Inj) 21:00 Azithromycin 500mg+Ns PHA 08/23/25 In Process 250ml (Azithromyci 21:00 Current Medications Medications (Trade) Dose Ordered Sig/Ellen Route PRN Reason Start Time Stop Time Status Last Admin Dose Admin Azithromycin 250 ml @ 250 mls/hr ONCE ONCE IVPB 08/23/25 21:00 08/23/25 21:59 Ceftriaxone Sodium (ROCEphine 1G INJ) 1 gm ONCE ONCE IVPB 08/23/25 21:00 08/23/25 21:01 DC Furosemide (LASix 40MG VIAL) 40 mg ONCE ONCE IV 08/23/25 21:00 08/23/25 21:01 DC 08/23/25 20:55 Vital Signs Date Time Temp Pulse Resp B/P (MAP) Pulse Ox O2 Delivery O2 Flow Rate FiO2 08/23/25 19:50 99.0 69 17 130/57 98 Room Air* 0 08/23/25 19:18 99.9 72 16 101/44 97 Room Air 0 HEART Score Response (Comments) Value EKG: Normal 0 Age: > 65yrs (+2) 2 Risk Factors: 3+ risk factors (+2) 2 Initial Troponin: Normal limit (0) 0 HEART Score Risk: Mod Risk for MACE (4-6) Total 4 DX & DISP Disposition: Inpatient Departure Impression: Primary Impression: Acute exacerbation of chronic heart failure Additional Impressions: CHF (congestive heart failure), NYHA class III, Leukocytosis, Upper respiratory infection Condition: Stable Referrals: SELF,REFERRAL (PCP) HUA STORY MD Aug 23, 2025 19:32
--- NOTE | 2025-08-23 19:55 | EKG ---
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 : 1950 Requested By: HUA STORY Order Number: [id number] Reading MD: Selene Puente Measurements Intervals [place] Rate: 62 P: 47 LA: 242 QRS: 12 QRSD: 99 T: 13 QT: 476 QTc: 486 Interpretive Statements Sinus rhythm Prolonged LA interval Compared to ECG 08/15/2025 08:29:17 First degree AV block now present Ventricular premature complex(es) no longer present ST (T wave) deviation no longer present Myocardial infarct finding no longer present Electronically Signed On 08-24-2025 08:44:37 HABITAT MANAGEMENT COORDINATOR by Selene Puente Please click the below link to view image of tracing.
[2025-08-23 19:58] LABS: IMMATURE GRANULOCYTE ABSOLUTE 0.10 K/uL (0-1); NUCLEATED RED BLOOD CELLS 0.0 % (0.0-0.19); PLATELET COUNT (AUTO) 219 K/uL (130-400); RED BLOOD CELL COUNT(AUTO) 3.56 MIL/uL (4.50-6.20); RED CELL DISTRIBUTION WIDTH 17.2 % (11.0-15.5); WHITE BLOOD COUNT (AUTO) 18.1 K/uL (4.8-10.8)
[2025-08-23 20:00] LABS: CREATININE 1.7 mg/dL (0.5-1.3); GLOMERULAR FILTR. RATE CALC 42.0 mL/min (>90); GLUCOSE,RANDOM 166.0 mg/dL (70-105); SODIUM SERUM 135.0 mmol/L (136-145); UREA NITROGEN, BLOOD 33.0 mg/dL (7-18)
[2025-08-23 20:26] LABS: APPEARANCE,URINE CLEAR (CLEAR); GLUCOSE, URINE (UA) >=1000 mg/dL (NEGATIVE); LEUKOCYTE ESTERASE ,URINE NEGATIVE Leu/uL (NEGATIVE); NITRATE,URINE NEGATIVE (NEGATIVE); OCCULT BLOOD,URINE SMALL (NEGATIVE)
[2025-08-23 20:27] LABS: WBC MORPHOLOGY CONSISTENT W/DIFF
[2025-08-23 20:30] LABS: ADD UA MICROSCOPIC YES
[2025-08-23 20:32] LABS: SQUAMOUS EPITHELIAL CELL,UR RARE /HPF (0-2)
[2025-08-23 20:42] LABS: COVID19 (SARS ANTIGEN RAPID) PRESUMPTIVE NEGATIVE (NEGATIVE)
[2025-08-23 20:43] LABS: INFLUENZA TYPE A Negative For Type A (NEGATIVE); INFLUENZA TYPE B Negative For Type B (NEGATIVE)
[2025-08-23] MEDS: AZITHROMYCIN 500MG+NS 250ML 250 ML IVPB ONE (21:56)
--- NOTE | 2025-08-23 22:34 | HP ---
[facility] HISTORY [facility] PHYSICAL Date of Service: Aug 23, 2025 Time of Service: 22:34 PCP:Nestor Ayoub HISTORY OF PRESENT ILLNESS: This is a 74-year-old male with past medical history of atrial fibrillation, CHF, artery disease with CABG x2 and aortic valve replacement, Chronic obstructive pulmonary disease, diabetes, hypertension ,hyperlipidemia, restless leg syndrome and obstructive sleep apnea on CPAP at home who was brought by EMS to the ED complaints of dizziness and weakness started today. As per ,patie nt started having occasional dry cough for the past 2 days and today he developed fever T101.5 and patient was complaining of being generally weak and unable to get up and walk and noted patient started getting confused so she called the ambulance she said. Patient seen and examined in the Ed awake,alert and coherent,on his baseline now and appears comfortable.Patient denies headache,chest pain,palpitation and shortness of breath.Patient reports he has bilateral leg swelling which is an ongoing problem he said. Latest vital signs temperature 99, heart rate 95, blood pressure 167/82 saturation 95% on room air. Labs: WBC 18 with negative left shift of neutrophils 88, hemoglobin 8, hematocrit 27 platelet count 219. Sodium 135, BUN 33, creatinine 1.7, GFR 42 random glucose was 66, troponin 36, BNP 2030. Influenza type a and B negative SARS COVID negative. ECG result revealed sinus rhythm heart rate 62 with prolonged [place] interval. Chest x-ray result revealed no acute cardiopulmonary pathology is evident. While in the ER patient received Rocephin 1 g IV, azithromycin IV and Lasix 40 mg IV. We will admit patient for further medical management. REVIEW OF SYSTEMS CONSTITUTIONAL: Complains of fever and chills Denies night sweats. No unintentional weight loss reported. NEUROLOGICAL: Complains of generalized body weakness Denies headache, amaurosis fugax, sensory deficit, vertigo/spinning sensation, gait abnormalities, or tremors. ENT: No hearing loss, otalgia, otorrhea, rhinitis, rhinorrhea, hoarseness, or sore throat. CARDIOVASCULAR: Denies any exertional angina, dyspnea on exertion, orthopnea, paroxysmal nocturnal dyspnea, palpitations, life-threatening arrhythmias, claudication. PULMONARY: Complaints of dry cough Denies any shortness of breath, phlegm/sputum, hemoptysis, pleuritic chest pain. SLEEP: Denies morning headaches, daytime somnolence or napping. Denies difficulty falling asleep, staying asleep, waking from sleep. Denies knowledge of snoring. GASTROINTESTINAL: Denies any type of dysphagia to either liquids or solids. Denies nausea, vomiting, pyrosis, early satiety, abdominal pain, diarrhea, constipation, or changes in stool consistency or caliber. Denies coffee-ground emesis, hematemesis, hematochezia, or melanotic stools. GENITOURINARY: Denies frequency, urgency, nocturia, hematuria or incontinence (Storage/Irritative symptoms.) Low urinary stream, straining to void, urinary intermittency or hesitancy, splitting of the voiding stream, terminal dribbling. ENDOCRINOLOGIC: Denies polyuria, polydipsia, polyphagia or heat/cold intolerances. HEMATOLOGIC: Denies thrombophilia/previous clots, or coagulopathy/bleeding disorders. ONCOLOGIC: Denies personal history of malignancy. DERMATOLOGIC: Denies rashes or pruritus. PSYCHIATRIC: Denies any suicidal or homicidal ideation. Denies hallucinations. PAST MEDICAL HISTORY: [ Hypertension, hyperlipidemia, diabetes type 2, atrial fibrillation, CHF, coronary artery disease with CABG x2 aortic valve complaints, morbid obesity, obstructive sleep apnea on CPAP at home and restless leg syndrome ] PAST SURGICAL HISTORY: [CABG, aortic valve replacement, cardiac catheterization, gastric bypass, bilateral knee surgery, hernia repair and tracheostomy ] PAST SOCIAL HISTORY: [ Patient lives with . Patient denies alcohol tobacco and recreational drug use ] FAMILY HISTORY: [ Cancer, Alzheimer's disease, hypertension and cardiovascular disease ] Coded Allergies: Sulfa (Sulfonamide Antibiotics) (Unverified Allergy, Unknown, 12/10/23) PHYSICAL EXAM GENERAL APPEARANCE: The patient is awake, alert, and oriented, in no acute cardiopulmonary distress. NEUROLOGICAL: Cranial nerves II-XII grossly intact. Motor is 5/5 in bilateral upper and lower extremities proximal to distal. No sensory deficits. HEENT: Face is symmetric. Pupils are equal and reactive. Extraocular movements are intact. NECK: Supple. No JVD. No thyromegaly. No submental, submandibular, pre- /postauricular, occipital or supraclavicular lymphadenopathy. CHEST: Normal chest expansion. No Telemetry. LUNGS: Absence of any rales, rhonchi or any wheezing. CARDIOVASCULAR: Regular. S1 and S2 normal. No appreciable rubs, murmurs or gallops. ABDOMEN: Soft, nontender, and nondistended. There is no rebound, voluntary guarding, or rigidity. : Deferred. No Kuo. EXTREMITIES: Edema to bilateral lower extremities SKIN: No skin breakdown. Vital Sign (Last 24 Hours) 08/23/25 19:50 Temp 99.0 Pulse 69 Resp 17 B/P (MAP) 130/57 Pulse Ox 98 O2 Delivery Room Air* O2 Flow Rate 0 FiO2 21 LABS: Laboratory: Test 08/23/25 20:18 08/23/25 19:45 08/23/25 19:39 Range/Units Urine Color YELLOW YELLOW Urine Appearance CLEAR CLEAR Urine pH 5.5 5.0-8.0 Urine Specific [place] 1.029 1.001-1.031 Urine Protein 30 H NEGATIVE mg/dL Urine Glucose (UA) >=1000 H NEGATIVE mg/dL Urine Ketones 5 H NEGATIVE mg/dL Urine Occult Blood SMALL H NEGATIVE Urine Nitrate NEGATIVE NEGATIVE Urine Bilirubin SMALL H NEGATIVE mg/dL Urine Urobilinogen 1.0 0.2-1.0 mg/dL Urine Leukocyte Esterase NEGATIVE NEGATIVE Hu/uL Urine RBC TNTC H 0-1 /HPF Urine WBC 2-5 H 0-1 /HPF Urine Squamous Epithelial Cells RARE 0-2 /HPF Urine Bacteria RARE None Seen /HPF Influenza Type A Antigen Negative For Type A NEGATIVE Influenza Type B Antigen Negative For Type B NEGATIVE SARS-CoV-2 Antigen (Rapid) PRESUMPTIVE NEGATIVE NEGATIVE White Blood Count 18.1 H 4.8-10.8 K/uL Red Blood Count 3.56 L 4.50-6.20 MIL/uL Hemoglobin 8.3 L 14.0-18.0 g/dL Hematocrit 27.9 L 42-54 % Mean Corpuscular Volume 78.4 L 79-99 fL Mean Corpuscular Hemoglobin 23.3 L 27.0-33.0 pg Mean Corpuscular Hemoglobin Concent 29.7 L 32.0-36.0 g/dL Red Cell Distribution Width 17.2 H 11.0-15.5 % Platelet Count 219 130-400 K/uL Mean Platelet Volume 11.0 H 7.5-10.5 fL Immature Granulocyte % (Auto) 0.6 0-1 % Neutrophils (%) (Auto) 88.9 H 40.0-77.0 % Lymphocytes (%) (Auto) 5.0 L 21.0-51.0 % Monocytes (%) (Auto) 5.4 3.0-13.0 % Eosinophils (%) (Auto) 0.0 0.0-8.0 % Basophils (%) (Auto) 0.1 0.0-5.0 % Neutrophils # (Auto) 16.1 H 1.8-7.7 K/uL Lymphocytes # (Auto) 0.9 L 1.0-4.8 K/uL Monocytes # (Auto) 1.0 0.1-1.0 K/uL Eosinophils # (Auto) 0.00 0.00-0.70 K/uL Basophils # (Auto) 0.02 0.00-0.20 K/uL Absolute Immature Granulocyte (auto 0.10 0-1 K/uL Nucleated Red Blood Cells 0.0 0.0-0.19 % White Cell Morphology Comment CONSISTENT W/DIFF Red Blood Cell Morphology See comments Sodium Level 135 L 136-145 mmol/L Potassium Level 4.2 3.5-5.1 mmol/L Chloride Level 101 101-111 mmol/L Carbon Dioxide Level 27 21-32 mmol/L Blood Urea Nitrogen 33 H 7-18 mg/dL Creatinine 1.7 H 0.5-1.3 mg/dL Glomerular Filtration Rate Calc 42 >90 mL/min Random Glucose 166 H 70-105 mg/dL Total Calcium 8.1 L 8.5-10.1 mg/dL Magnesium Level 2.20 1.80-2.40 mg/dL Troponin I High Sensitivity 36 4-75 ng/L B-Type Natriuretic Peptide 2030 H 0-100 pg/mL DIAGNOSTICS / RADIOLOGY: [ ] ASSESSMENT: Acute CHF exacerbation POA Suspected community-acquired pneumonia POA Acute leukocytosis POA Acute anemia POA Hyponatremia POA Uncontrolled diabetes POA Morbid obesity POA Hypertension. Hyperlipidemia POA Coronary Artery disease CABG x2 and aortic valve replacement POA PLAN: We will admit patient in medical telemetry We will start on heart healthy diet We will start on Lasix 20 mg IV Q 8 hours We will start on famotidine 20 mg p.o. daily We will continue on azithromycin and Rocephin IV for broad-spectrum coverage We will replace electrolytes as needed per protocol We will start on insulin sliding scale AC & HS with hypoglycemia protocol We will add prn medication for fever,pain,cough , nausea and vomiting We will reconcile home meds once medlist available Who is restriction 1.4 L and daily weight We will request for respiratory culture blood culture and result We will obtain CT chest without contrast We will request labs in am Further orders to follow depending on above results Case discussed with attending physician and came up with above treatment and plan of care. ADVANCED CARE PLANNING 1. Which of the following were discussed? Hospice Care - No Therapeutic options - Yes Advance Directives - No Other discussions - 2. Discussed with who? Patient 3. Voluntary nature of this service was explained to the patient? Yes 4. Amount of time spent - __23 min 5. Reviewed by Physician? (if this service was performed by NPP) Yes Patient seen and examined by me. Agree with note by PLAYER DEVELOPMENT EXECUTIVE SEE ADDITIONAL ORDERS PER CHART DISCUSSED WITH NURSING STAFF SUDHIR DOHERTY MOTOR HOME ELECTRICAL FOREMAN Aug 23, 2025 22:34
--- NOTE | 2025-08-23 22:48 | HMCIMG ---
EXAM: CR Chest, 1 View. CLINICAL HISTORY: sob COMPARISON: Radiograph dated July 31, 2025 FINDINGS: LUNGS: There is no mass, infiltrate, or acute pulmonary abnormality. PLEURAL SPACES: No evidence of pleural effusion or pneumothorax. MEDIASTINUM: Stable cardiomegaly. Mild central pulmonary vascular congestion. BONES: No acute osseous abnormality. IMPRESSION: No acute cardiopulmonary pathology is evident. /[place]
[2025-08-23] MEDS: AZITHROMYCIN 500MG+NS 250ML 250 ML IV SCH (23:00)
[2025-08-23 23:52] VITALS: RESP 18; O2SAT 97
[2025-08-23] MEDS: SODIUM CHLORIDE 3% FOR INHALATION 4 ML/AMP VIAL.NEB IH ONE (23:52)
[2025-08-24] MEDS: FAMOTIDINE 20MG TAB PO SCH (00:10)
[2025-08-24] MEDS ORDERED: FLUT1BLS3 IH (00:22)
--- NOTE | 2025-08-24 00:22 | NUR ---
HOME MEDICATIONS ENTERED.
--- NOTE | 2025-08-24 03:42 | HMCIMG ---
EXAM: Non-contrast CT examination of the chest CLINICAL HISTORY: Suspected pneumonia. TECHNIQUE: Thin collimated axial CT images of the chest were obtained with sagittal and coronal reformatted images also submitted. CT scan is done according to ALARA (As Low as Reasonably Achievable). CONTRAST USED: None. COMPARISON: None provided. FINDINGS: Symmetrical dependent atelectasis in the bilateral posterior basal lungs. No focal consolidation, pneumonia, pleural effusion, pneumothorax, or mass. No pericardial effusion. Moderate cardiomegaly. Calcific atherosclerotic disease in the thoracic aorta and coronary arteries. Mildly ectatic ascending thoracic aorta measures up to 4 cm in diameter. Mildly dilated pulmonary trunk measures up to 4 cm in diameter, concerning for mild pulmonary artery hypertension. Status poststernotomy and CABG. No mediastinal, axillary, or supraclavicular lymphadenopathy. No focal thyroid abnormality is evident. 2 cm fat density lesion in the left adrenal gland, which could be an adrenal myelolipoma. Status post gastric bypass. No acute bony abnormality is evident. Multiple old healed left rib fractures. IMPRESSION: Symmetrical dependent atelectasis in the bilateral posterior basal lungs. No focal consolidation, pneumonia, pleural effusion, pneumothorax, or mass. Moderate cardiomegaly. Mildly ectatic ascending thoracic aorta measures up to 4 cm in diameter. Mildly dilated pulmonary trunk measures up to 4 cm in diameter, concerning for mild pulmonary artery hypertension. Status poststernotomy and CABG. /[place]
[2025-08-24] MEDS: SODIUM CHLORIDE 3% FOR INHALATION 4 ML/AMP VIAL.NEB IH ONE (05:52)
[2025-08-24 05:58] LABS: IMMATURE GRANULOCYTE ABSOLUTE 0.06 K/uL (0-1); NUCLEATED RED BLOOD CELLS 0.0 % (0.0-0.19); PLATELET COUNT (AUTO) 190 K/uL (130-400); RED BLOOD CELL COUNT(AUTO) 3.44 MIL/uL (4.50-6.20); RED CELL DISTRIBUTION WIDTH 17.2 % (11.0-15.5); WHITE BLOOD COUNT (AUTO) 14.6 K/uL (4.8-10.8)
[2025-08-24 06:24] LABS: ASPARTATE AMINOTRANSFERASE 16.0 U/L (10-37); CREATININE 1.8 mg/dL (0.5-1.3); GLOMERULAR FILTR. RATE CALC 39.0 mL/min (>90); GLUCOSE,RANDOM 159.0 mg/dL (70-105); SODIUM SERUM 138.0 mmol/L (136-145); TOTAL PROTEIN, SERUM 6.5 g/dL (6.0-8.3); UREA NITROGEN, BLOOD 33.0 mg/dL (7-18)
--- NOTE | 2025-08-24 06:34 | NUR ---
COLLECTED AND SENT BY RN Addendum: 08/24/25 at 0635 by MOSHE JENKINS, RT RT Amended: Links added.
[2025-08-24 06:35] VITALS: PULSE 64; RESP 20; O2SAT 97
[2025-08-24 06:53] VITALS: TEMP 100
--- NOTE | 2025-08-24 12:55 | PN ---
[facility] PROGRESS NOTE Date of Service: Aug 24, 2025 Time of Service: 12:51 SUBJECTIVE: 08/24 the patient has been seen and examined, remains in the emergency room, sitting comfortably in the chair, he feels less short of breath compared to time of admission, he is alert oriented x3, denies dizziness, no headache, no chest pain, no cough, no nausea, no vomiting, no abdominal pain, no diarrhea, no constipation, no melena, no hematochezia, no hematemesis. Vital signs reviewed, blood pressure 107/59, spiked fever 101.3, saturating 98% 2 L nasal cannula. CBC shows a hemoglobin of 8.0, hematocrit 27.0, WBC 14.6, platelet count of 190. Sodium 138, potassium 4.1, BUN 33, creatinine 1.8. ProBNP 3470. Procalcitonin 1.0. Albumin 3.2. Serology test to include influenza and SARS antigen negative. UA negative leukocyte esterase, too numerous to count RBC, 2-5 WBC per high-power field. Chest x-ray no acute cardiopulmonary pathology. CT chest symmetrical dependent atelectasis in bilateral posterior basal lungs, no focal consolidation, pneumonia, pleural effusion, pneumothorax or mass, moderate cardiomegaly, mild ectatic ascending thoracic aorta measures up to 4 cm in diameter, mildly dilated pulmonary trunk measures up to 4 cm diameter, concerning for mild pulmonary artery hypertension, status post sternotomy and CABG. Continue the patient on empiric antibiotics with Rocephin and azithromycin, follow up Streptococcus pneumoniae and Legionella pneumoniae antigen, rapid strep a, we will request Pulmonary consultation. We will request Infectious Disease consultation. Follow UA, urine culture, blood cultures. Follow repeat chest x-ray in the next 24 hours. Continue the patient on furosemide 20 mg IV q.8 hours, echocardiogram to evaluate ejection fraction, Cardiology will be consulted. Follow a.m. labs. REVIEW OF SYSTEMS CONSTITUTIONAL: Complains of fever and chills Denies night sweats. No unintentional weight loss reported. NEUROLOGICAL: Complains of generalized body weakness Denies headache, amaurosis fugax, sensory deficit, vertigo/spinning sensation, gait abnormalities, or tremors. ENT: No hearing loss, otalgia, otorrhea, rhinitis, rhinorrhea, hoarseness, or sore throat. CARDIOVASCULAR: Denies any exertional angina, dyspnea on exertion, orthopnea, paroxysmal nocturnal dyspnea, palpitations, life-threatening arrhythmias, claudication. PULMONARY: Complaints of dry cough Denies any shortness of breath, phlegm/sputum, hemoptysis, pleuritic chest pain. SLEEP: Denies morning headaches, daytime somnolence or napping. Denies difficulty falling asleep, staying asleep, waking from sleep. Denies knowledge of snoring. GASTROINTESTINAL: Denies any type of dysphagia to either liquids or solids. Denies nausea, vomiting, pyrosis, early satiety, abdominal pain, diarrhea, constipation, or changes in stool consistency or caliber. Denies coffee-ground emesis, hematemesis, hematochezia, or melanotic stools. GENITOURINARY: Denies frequency, urgency, nocturia, hematuria or incontinence (Storage/Irritative symptoms.) Low urinary stream, straining to void, urinary intermittency or hesitancy, splitting of the voiding stream, terminal dribbling. ENDOCRINOLOGIC: Denies polyuria, polydipsia, polyphagia or heat/cold intolerances. HEMATOLOGIC: Denies thrombophilia/previous clots, or coagulopathy/bleeding disorders. ONCOLOGIC: Denies personal history of malignancy. DERMATOLOGIC: Denies rashes or pruritus. PSYCHIATRIC: Denies any suicidal or homicidal ideation. Denies hallucinations. PHYSICAL EXAM GENERAL APPEARANCE: The patient is awake, alert, and oriented, in no acute cardiopulmonary distress. NEUROLOGICAL: Cranial nerves II-XII grossly intact. Motor is 5/5 in bilateral upper and lower extremities proximal to distal. No sensory deficits. HEENT: Face is symmetric. Pupils are equal and reactive. Extraocular movements are intact. NECK: Supple. No JVD. No thyromegaly. No submental, submandibular, pre- /postauricular, occipital or supraclavicular lymphadenopathy. CHEST: Normal chest expansion. No Telemetry. LUNGS: Absence of any rales, rhonchi or any wheezing. CARDIOVASCULAR: Regular. S1 and S2 normal. No appreciable rubs, murmurs or gallops. ABDOMEN: Soft, nontender, and nondistended. There is no rebound, voluntary guarding, or rigidity. : Deferred. No Kuo. EXTREMITIES: Edema to bilateral lower extremities SKIN: No skin breakdown. Vital Signs (last 8hr) Date Time Temp Pulse Resp B/P (MAP) Pulse Ox O2 Delivery O2 Flow Rate FiO2 08/24/25 09:36 98.2 65 18 107/59 98 Nasal Cannula* 2 28 08/24/25 06:35 64 20 N/Cannula Low lpm 2.0 08/24/25 05:41 100.0 73 18 143/64 97 Nasal Cannula* 2 28 LABS: Laboratory: Test 08/24/25 05:45 08/23/25 20:18 08/23/25 19:45 08/23/25 19:39 Range/Units White Blood Count 14.6 H 4.8-10.8 K/uL Red Blood Count 3.44 L 4.50-6.20 MIL/uL Hemoglobin 8.0 L 14.0-18.0 g/dL Hematocrit 27.0 L 42-54 % Mean Corpuscular Volume 78.5 L 79-99 fL Mean Corpuscular Hemoglobin 23.3 L 27.0-33.0 pg Mean Corpuscular Hemoglobin Concent 29.6 L 32.0-36.0 g/dL Red Cell Distribution Width 17.2 H 11.0-15.5 % Platelet Count 190 130-400 K/uL Mean Platelet Volume 10.6 H 7.5-10.5 fL Immature Granulocyte % (Auto) 0.4 0-1 % Neutrophils (%) (Auto) 88.0 H 40.0-77.0 % Lymphocytes (%) (Auto) 6.1 L 21.0-51.0 % Monocytes (%) (Auto) 5.4 3.0-13.0 % Eosinophils (%) (Auto) 0.0 0.0-8.0 % Basophils (%) (Auto) 0.1 0.0-5.0 % Neutrophils # (Auto) 12.9 H 1.8-7.7 K/uL Lymphocytes # (Auto) 0.9 L 1.0-4.8 K/uL Monocytes # (Auto) 0.8 0.1-1.0 K/uL Eosinophils # (Auto) 0.00 0.00-0.70 K/uL Basophils # (Auto) 0.02 0.00-0.20 K/uL Absolute Immature Granulocyte (auto 0.06 0-1 K/uL Nucleated Red Blood Cells 0.0 0.0-0.19 % Sodium Level 138 136-145 mmol/L Potassium Level 4.1 3.5-5.1 mmol/L Chloride Level 103 101-111 mmol/L Carbon Dioxide Level 26 21-32 mmol/L Blood Urea Nitrogen 33 H 7-18 mg/dL Creatinine 1.8 H 0.5-1.3 mg/dL Glomerular Filtration Rate Calc 39 >90 mL/min Random Glucose 159 H 70-105 mg/dL Total Calcium 7.9 L 8.5-10.1 mg/dL Magnesium Level 2.10 1.80-2.40 mg/dL Total Bilirubin 0.6 0.2-1.0 mg/dL Aspartate Amino Transf (AST/SGOT) 16 10-37 U/L Alanine Aminotransferase (ALT/SGPT) 24 12-78 U/L Alkaline Phosphatase 50 50-136 U/L B-Type Natriuretic Peptide 3470 H 0-100 pg/mL Total Protein 6.5 6.0-8.3 g/dL Albumin 3.2 L 3.5-5.0 g/dL Procalcitonin 1.00 H 0.05-0.5 ng/mL Urine Color YELLOW YELLOW Urine Appearance CLEAR CLEAR Urine pH 5.5 5.0-8.0 Urine Specific [place] 1.029 1.001-1.031 Urine Protein 30 H NEGATIVE mg/dL Urine Glucose (UA) >=1000 H NEGATIVE mg/dL Urine Ketones 5 H NEGATIVE mg/dL Urine Occult Blood SMALL H NEGATIVE Urine Nitrate NEGATIVE NEGATIVE Urine Bilirubin SMALL H NEGATIVE mg/dL Urine Urobilinogen 1.0 0.2-1.0 mg/dL Urine Leukocyte Esterase NEGATIVE NEGATIVE Hu/uL Urine RBC TNTC H 0-1 /HPF Urine WBC 2-5 H 0-1 /HPF Urine Squamous Epithelial Cells RARE 0-2 /HPF Urine Bacteria RARE None Seen /HPF Influenza Type A Antigen Negative For Type A NEGATIVE Influenza Type B Antigen Negative For Type B NEGATIVE SARS-CoV-2 Antigen (Rapid) PRESUMPTIVE NEGATIVE NEGATIVE White Cell Morphology Comment CONSISTENT W/DIFF Red Blood Cell Morphology See comments Troponin I High Sensitivity 36 4-75 ng/L Current Medications Medications (Trade) Dose Ordered Sig/Ellen Route PRN Reason Start Time Stop Time Status Last Admin Dose Admin Acetaminophen (TYLenol 325MG TAB) 650 mg Q4H PRN PO MILD PAIN (1-3) 08/23/25 23:00 09/22/25 22:59 Acetaminophen (TYLenol 325MG TAB) 650 mg Q6H PRN PO TEMPERATURE GREATER THAN 101.5 08/23/25 23:00 09/22/25 22:59 08/24/25 03:58 650 MG Azithromycin 250 ml @ 250 mls/hr Q24H IV 08/23/25 23:00 08/24/25 00:15 DC Azithromycin 250 ml @ 250 mls/hr Q24H IV 08/24/25 20:00 09/03/25 19:59 Ceftriaxone Sodium 1 gm/ Sodium Chloride 50 ml @ 100 mls/hr Q24H IV 08/23/25 23:00 08/23/25 23:15 DC Ceftriaxone Sodium (ROCEphine 1G INJ) 1 gm Q24H IVPB 08/23/25 23:30 08/24/25 00:16 DC Ceftriaxone Sodium (ROCEphine 1G INJ) 1 gm Q24H IVPB 08/24/25 20:00 09/03/25 19:59 Famotidine (Pepcid 20mg Tab) 20 mg DAILY PO 08/23/25 23:00 09/22/25 22:59 08/24/25 09:44 20 MG Furosemide (LASix 20MG VIAL) 20 mg Q8H IV 08/23/25 23:00 08/24/25 00:15 DC Furosemide (LASix 20MG VIAL) 20 mg Q8H IV 08/24/25 05:00 09/23/25 04:59 08/24/25 04:43 20 MG Ondansetron HCl (zoFRAN 4MG INJ) 4 mg Q6H PRN IV NAUSEA/VOMITING 08/23/25 23:00 09/22/25 22:59 08/24/25 03:58 4 MG DIAGNOSTICS / RADIOLOGY: [ ] ASSESSMENT: Acute CHF exacerbation POA Suspected community-acquired pneumonia POA Acute leukocytosis POA Acute anemia POA Hyponatremia POA Uncontrolled diabetes POA Morbid obesity POA Hypertension. Hyperlipidemia POA Coronary Artery disease CABG x2 and aortic valve replacement POA PLAN: the patient has been seen and examined, blood pressure 107/59, spiked fever 101.3, saturating 98% 2 L nasal cannula. CBC shows a hemoglobin of 8.0, hematocrit 27.0, WBC 14.6, platelet count of 190. Sodium 138, potassium 4.1, BUN 33, creatinine 1.8. ProBNP 3470. Procalcitonin 1.0. Albumin 3.2. Se rology test to include influenza and SARS antigen negative. UA negative leukocyte esterase, too numerous to count RBC, 2-5 WBC per high-power field. Chest x-ray no acute cardiopulmonary pathology. CT chest symmetrical dependent atelectasis in bilateral posterior basal lungs, no focal consolidation, pneumonia, pleural effusion, pneumothorax or mass, moderate cardiomegaly, mild ectatic ascending thoracic aorta measures up to 4 cm in diameter, mildly dilated pulmonary trunk measures up to 4 cm diameter, concerning for mild pulmonary artery hypertension, status post sternotomy and CABG. Continue the patient on empiric antibiotics with Rocephin and azithromycin, follow up Streptococcus pneumoniae and Legionella pneumoniae antigen, rapid strep a, we will request Pulmonary consultation. We will request Infectious Disease consultation. Follow UA, urine culture, blood cultures. Follow repeat chest x-ray in the next 24 hours. Continue the patient on furosemide 20 mg IV q.8 hours, echocardiogram to evaluate ejection fraction, Cardiology will be consulted. Follow a.m. labs. NEURO: Minimize central acting medications as possible. Fall Precautions. Well lighted room through the day and minimize interruptions through the night to prevent acute delirium. PULMONARY: Supplemental 02 as needed BiPAP as necessary, for respiratory distress Titrate Fio2 to keep Spo2 > or = 90% DuoNebs and CPT as needed IS hourly while awake for pulmonary hygiene prn Out of bed to chair as tolerated Maintain aspiration precautions at all times CARDIOVASCULAR: Follow hemodynamics. Vital signs per facility protocol GI & NUTRITION: Continue nutritional support Aspirations precautions Prokinetic agents and laxatives as needed KIDNEYS & ELECTROLYTES: Strict monitoring of intake and output Daily weights Avoid nephrotoxic agents Monitor electrolytes and replace as needed Goal urine output of 30mL/hr or 0.5mL/kg/hr Medications to be dosed according to renal function. Avoid contrast if possible ENDOCRINE: Maintain blood glucose between 100-180 at all times. Insulin sliding scale for blood glucose management Hypoglycemia and hyperglycemia protocol in place INFECTIOUS DISEASE: Trend temperature, WBC and procalcitonin level Follow cultures, deescalate antibiotics as soon as possible. Panculture if new onset fever HEMATOLOGY & COAGULATION: Monitor H&H. Keep Hgb > 7 Transfuse 1 unit of PRBC for Hgb < 7 Transfuse 1 pack of platelets of platelets < 20, 000 Watch for any signs and symptoms of bleeding SKIN: Pressure ulcer prevention per facility protocol Specialty mattress as needed ORTHO/REHAB Continue PT/OT PRN: MEDICATIONS Tylenol 650 mg po every 4 hrs for fever zofran 4 mg IV every 6 hrs for n/v Hydralazine 5 mg IV every 4 hrs systolic pressure > 160 bowel regiment: lactulose 20 gm PO BID PRN constipation Supportive measures: Continue GI and DVT prophylaxis Disposition: Pending improvement in clinical condition All questions answered time spent: > 35 min NADIYA OKEEFE MD Aug 24, 2025 12:54
[2025-08-24] MEDS ORDERED: DEXTROSE 50%-WATER 50 ML DISP.SYRIN IV PRN (13:00)
[2025-08-24] MEDS ORDERED: GLUCAGON 1MG KIT 1 MG ML IM PRN (13:00)
[2025-08-24 13:27] LABS: % IRON SATURATION 3.2 % (30-44); IRON, SERUM 11.0 mcg/dL (65-175)
--- NOTE | 2025-08-24 13:41 | NUR ---
DCP: HOME Per July García [phone], pt lives with her in home they own. No govt assistance. Pt remains independent of self care, uses his walker, cane bsc, shower chair and CPAP. states Dr Steward is working on arranging outpt cardio therapy, for pt who has a cardio version 08/15. PCP is Felipa Baez and uses [facility] rx needs. denies dc needs and will take pt home at nd
--- NOTE | 2025-08-24 17:12 | HMCSR ---
APPROVED REPORT EXAM: Limited two-dimensional echocardiogram INDICATION ICD: Acute congestive heart failure, assess ejection fraction Left Ventricle The left ventricle is mildly dilated. Septal bounce is present. Possible apical hypokinesis. There is normal left ventricular wall thickness. LVEF is 45-50%. Right Ventricle Right ventricle is moderately dilated. Right ventricular systolic function is hypokinetic. Atria The left atrium is severely dilated. Right atrial size is normal. Aortic Valve Aortic valve cusps not well visualized however opens well. No aortic regurgitation. Mitral Valve Mitral valv3e opens well. Tricuspid Valve The tricuspid valve is normal in structure. It opens well. Pericardium No pericardial effusion. Other Information Quality : Limited/Follow-up Rhythm : NSR Conclusion LVEF is 45-50%. Septal bounce is present. Possible apical hypokinesis. Endocardium not well visualized. Right ventricle is moderately dilated and hypokinetic. Left atrium is severely dilated. No pericardial effusion.
--- NOTE | 2025-08-24 17:43 | CONS ---
[facility] CONSULTATION NOTE Date Patient Seen: Aug 24, 2025 Time of Visit: 17:42 Supervising Physician: Dr. Thai Zhang Reason for Consultation: Sepsis, pneumonia Primary Care Physician: Dr. Mega Baez Attending: [facility] hospitalist team Outpatient Specialists: Inpatient Consults: [facility]IS, pulmonary/critical Care team Cardiology, Infectious Disease physician PROBLEM LIST: Acute CHF exacerbation, POA LVEF 45-50%, per echo on 08/24/2025 Symmetrical dependent atelectasis in the bilateral posterior basal lungs, per CT on 08/24/2025 Mildly ectatic ascending thoracic aorta measures up to 4 cm in diameter, per CT on 08/24/2025 Mildly dilated pulmonary trunk measures up to 4 cm in diameter, concerning for mild pulmonary artery hypertension, per CT on 08/24/2024 Coronary artery disease s/p CABG x2 and aortic valve replacement Moderate cardiomegaly Acute leukocytosis Acute anemia chronic disease Hyponatremia Uncontrolled diabetes mellitus Morbid obesity, BMI 44.5 Hypertension Hyperlipidemia HPI: Mr. García is a 74-year-old male with past medical history of atrial fibrillation, CHF, CAD s/p CABG x2 and aortic valve replacement, COPD, DM, HTN, HDL, restless leg syndrome and obstructive sleep apnea on CPAP at home who was brought by EMS to the ED on 08/23/2025 for evaluation of dizziness and weakness onset 08/23/2025. As per , patient started having occasional dry cough for the past 2 days prior to arrival and on 08/23/2025 he developed fever T101.5 F, and started getting confused which prompted the visit to the ED. The patient also c/o GBW and unable to get up and walk. Today on 08/24/2025 BIS, pulmonary/critical care team was consulted for sepsis and pneumonia by Dr. Snyder, [facility] hospitalist provider. I assessed the patient at bedside in ED 4. The patient was sitting on the recliner, breathing was even, unlabored, drowsy, in no distress. Family member was at bedside. The patient's WBC improved from 18.1-14.6. CT chest w/o contrast: Symmetrical dependent atelectasis in the bilateral posterior basal lungs. No focal consolidation, pneumonia, pleural effusion, pneumothorax, or mass. Moderate cardiomegaly. Mildly ectatic ascending thoracic aorta measures up to 4 cm in diameter. Mildly dilated pulmonary trunk measures up to 4 cm in diameter, reji rning for mild pulmonary artery hypertension. Status poststernotomy and CABG. I informed them of labs, diagnostics, and plan of care. They verbalized understanding and are in agreement with the plan. Plan and assessment are listed below. PAST MEDICAL HX: see above PAST SURGICAL HX: CABG, aortic valve replacement, cardiac catheterization, gastric bypass, bilateral knee surgery, hernia repair and tracheostomy SOCIAL HISTORY: No tobacco, ETOH, or illicit drug use Coded Allergies: Sulfa (Sulfonamide Antibiotics) (Unverified Allergy, Unknown, 12/10/23) REVIEW OF SYSTEMS: 12 point ROS reviewed with patient. Pertinent positives mentioned above. Otherwise negative. PHYSICAL EXAM: GENERAL: Alert, weak, awake oriented x 3 HEENT: EOMI, Sclera non icteric, moist mucosa NECK: Supple, no JVD, trachea midline LUNGS: Clear breath sounds bilaterally. No wheezes HEART: Regular rate and rhythm. Normal S1 and S2, without murmurs ABD: Abdomen soft, nontender. Bowel sounds present EXT: No clubbing cyanosis, + edema NEURO: Alert and oriented X3, follows commands LABS: Hematology Labs: Test 08/24/25 05:45 08/23/25 19:39 Range/Units White Blood Count 14.6 H 4.8-10.8 K/uL Red Blood Count 3.44 L 4.50-6.20 MIL/uL Hemoglobin 8.0 L 14.0-18.0 g/dL Hematocrit 27.0 L 42-54 % Mean Corpuscular Volume 78.5 L 79-99 fL Mean Corpuscular Hemoglobin 23.3 L 27.0-33.0 pg Mean Corpuscular Hemoglobin Concent 29.6 L 32.0-36.0 g/dL Red Cell Distribution Width 17.2 H 11.0-15.5 % Platelet Count 190 130-400 K/uL Mean Platelet Volume 10.6 H 7.5-10.5 fL Immature Granulocyte % (Auto) 0.4 0-1 % Neutrophils (%) (Auto) 88.0 H 40.0-77.0 % Lymphocytes (%) (Auto) 6.1 L 21.0-51.0 % Monocytes (%) (Auto) 5.4 3.0-13.0 % Eosinophils (%) (Auto) 0.0 0.0-8.0 % Basophils (%) (Auto) 0.1 0.0-5.0 % Neutrophils # (Auto) 12.9 H 1.8-7.7 K/uL Lymphocytes # (Auto) 0.9 L 1.0-4.8 K/uL Monocytes # (Auto) 0.8 0.1-1.0 K/uL Eosinophils # (Auto) 0.00 0.00-0.70 K/uL Basophils # (Auto) 0.02 0.00-0.20 K/uL Absolute Immature Granulocyte (auto 0.06 0-1 K/uL Nucleated Red Blood Cells 0.0 0.0-0.19 % White Cell Morphology Comment CONSISTENT W/DIFF Red Blood Cell Morphology See comments Chemistry Labs: Test 08/24/25 17:10 08/24/25 05:45 08/23/25 19:39 Range/Units Whole Blood Glucose 196 H 70-110 MG/DL Sodium Level 138 136-145 mmol/L Potassium Level 4.1 3.5-5.1 mmol/L Chloride Level 103 101-111 mmol/L Carbon Dioxide Level 26 21-32 mmol/L Blood Urea Nitrogen 33 H 7-18 mg/dL Creatinine 1.8 H 0.5-1.3 mg/dL Glomerular Filtration Rate Calc 39 >90 mL/min Random Glucose 159 H 70-105 mg/dL Total Calcium 7.9 L 8.5-10.1 mg/dL Magnesium Level 2.10 1.80-2.40 mg/dL Iron Level 11 #L 65-175 mcg/dL Total Iron Binding Capacity 336 250-450 mcg/dL Percent Iron Saturation 3.2 L 30-44 % Total Bilirubin 0.6 0.2-1.0 mg/dL Aspartate Amino Transf (AST/SGOT) 16 10-37 U/L Alanine Aminotransferase (ALT/SGPT) 24 12-78 U/L Alkaline Phosphatase 50 50-136 U/L B-Type Natriuretic Peptide 3470 H 0-100 pg/mL Total Protein 6.5 6.0-8.3 g/dL Albumin 3.2 L 3.5-5.0 g/dL Procalcitonin 1.00 H 0.05-0.5 ng/mL Troponin I High Sensitivity 36 4-75 ng/L Coagulation Labs: Test 08/24/25 13:59 Range/Units D-Dimer Quantitative (PE/DVT) 652 *H 0-500 ng/mL DIAGNOSTICS / RADIOLOGY RESULTS: [ ] PLAN Continue to monitor respirations closely. Obtain ABGs. Oxygen therapy as needed to keep SpO2 equal to greater than 92%. Albuterol and Atrovent nebulizer treatments PRN shortness of breath. Continue antibiotic therapy Zithromax IV and Rocephin IV. Follow streptococcal pneumonia and Legionella pneumonia antigen. Follow blood cultures, urine cultures. Continue Lasix 20 mg IV q.8 hours. Additional orders per hospitalization course and per admitting providers. ATTESTATION BY PHYSICIAN I reviewed the documentation, medical decision making, and treatment plan as noted by BO above. I agree with the findings and plan of care. Thai Zhang MD, [facility] Aug 24, 2025 17:43
[2025-08-24] MEDS ORDERED: AMIODARONE HCL 400 MG PO SCH (21:00)
[2025-08-24] MEDS: AZITHROMYCIN 500MG+NS 250ML 250 ML IV SCH (22:17)
--- NOTE | 2025-08-24 23:05 | NUR ---
FLOOR RN CHAZ NOT AVAIL TO TAKE REPORT YET
[2025-08-25] VITALS (13 sets, daily range): BP systolic 115–153; BP diastolic 50–72; PULSE 65–82; RESP 16–24; TEMP 97.9–98.4; O2SAT 90–96
[2025-08-25] MEDS ORDERED: ALBUTEROL 0.083% 2.5 MG/3 ML INH IH PRN (03:30)
[2025-08-25 04:52] LABS: ABG BASE EXCESS -1.1 mmol/L (-2.0-3.0); ABG HCO3 23.6 mmol/L (21.0-28.0); ABG OXYGEN SATURATION 92.1 % (94.0-98.0); ABG PCO2 39 mmHg (35-48); ABG PH 7.397 (7.350-7.450); CARBON MONOXIDE 1.2 % (0.5-1.5); PO2, ARTERIAL BG 69.2 mmHg (83.0-108.0); TEMPERATURE, CELSIUS BG 37.0 CELSIUS (35.5-37.0); VENT MODE, BG ROOMAIR (ROOM AIR)
[2025-08-25 05:16] LABS: NUCLEATED RED BLOOD CELLS 0.0 % (0.0-0.19); PLATELET COUNT (AUTO) 155.0 K/uL (130-400); RED BLOOD CELL COUNT(AUTO) 3.3 MIL/uL (4.50-6.20); RED CELL DISTRIBUTION WIDTH 17.2 % (11.0-15.5); WHITE BLOOD COUNT (AUTO) 9.0 K/uL (4.8-10.8)
[2025-08-25 05:35] LABS: ASPARTATE AMINOTRANSFERASE 14.0 U/L (10-37); CREATININE 1.9 mg/dL (0.5-1.3); GLOMERULAR FILTR. RATE CALC 36.0 mL/min (>90); GLUCOSE,RANDOM 122.0 mg/dL (70-105); SODIUM SERUM 138.0 mmol/L (136-145); TOTAL PROTEIN, SERUM 6.3 g/dL (6.0-8.3); UREA NITROGEN, BLOOD 38.0 mg/dL (7-18)
--- NOTE | 2025-08-25 06:04 | HMCIMG ---
EXAMINATION: SPECTRAL DOPPLER ULTRASOUND EXAMINATION OF THE BILATERAL LOWER EXTREMITY VEINS. CLINICAL HISTORY: Swelling. COMPARISON: Bilateral lower extremity venous doppler dated 05/13/2025. TECHNIQUE: Real-time ultrasound scan of the veins of the bilateral lower extremity with color Doppler flow, spectral waveform analysis and compression. FINDINGS: DEEP VEINS: The common femoral, deep femoral, superficial femoral, popliteal, and posterior tibial veins are echolucent and compressible. There is normal color Doppler flow throughout. The visualized calf veins appear patent. SUPERFICIAL VEINS: The proximal greater saphenous veins are patent and compressible. SOFT TISSUES: No popliteal fossa cyst or other abnormalities. IMPRESSION: No deep venous thrombosis evident in the bilateral lower extremity. No significant interval changes. /Joss
[2025-08-25] MEDS: Fluticasone/Umeclidin/Vilanter (Trelegy Ellipta 100-62.5- IH SCH (09:00)
[2025-08-25] MEDS: PREVAGEN PO SCH (09:00)
[2025-08-25] MEDS: ASPIRIN 81MG CHEW TAB PO SCH (10:00)
[2025-08-25] MEDS: SPIRONOLACTONE 25 MG TAB PO SCH (10:00)
--- NOTE | 2025-08-25 10:24 | CONS ---
[facility] CARDIOLOGY CONSULTATION NOTE Date Patient Seen: Aug 25, 2025 Time of Visit: 09:45 Reason for Consultation: [ CHF exacerbation] History of Present Illness: [74-year-old male patient that follows up in Cardiology Clinic with Dr. Steward, with a past medical history of CAD status post 2v CABG (VANESSA-LAD, SVG-OM), and [place] aortic bioprosthesis placement on 12/13/2023, paroxysmal atrial fibrillation status post cardioversion on 08/15/2025, chronic combined systolic and diastolic heart failure, who was brought by EMS to the ED on 08-23-25 with complaints of dizziness and weakness started. As per ,patient started havin g occasional dry cough for the past 2 days and he developed fever T101.5 , patient was endorsing generalized weakness . Presenting ECG sinus rhythm with no acute ischemia with a heart rate of 62 beats per minute, current hemoglobin 7.5, creatinine 1.7 that up trended to 1.9, troponins 36, BNP 3170, D-dimer 652, lower extremity venous Doppler was negative for DVT, chest CTA was no evidence of pulmonary embolism, ascending aorta was noted 4 cm, 2D echocardiogram from 08/24/2025, LVEF 40-50%, with a severe dilated left atrium, (prior 2D echocardiogram from May 2025 LVEF 50-55%, with stage III diastolic dysfunction with severely dilated left atrium, the patient was assessed in his room, currently sitting his recliner, on room air, physical exam we will note is 1+ bilateral lower extremity pitting edema,, denying any chest pain, palpitations dyspnea or any other anginal equivalents, blood pressure averaging 130 systolic, with a heart rate of 70 beats per minute. Cardiology was consulted for CHF exacerbation) Past Medical History: [Refer to chart ] Past Surgical History: [Refer to HPI ] Family History: [Refer to HPI ] Social History: [Refer to HPI ] Habits: [Never] smoker. [Denies] alcohol consumption. [Denies] illicit drug use Review of Systems: A review of12 point system was negative set per HPI Physical Examination: GENERAL: [No acute distress.] HEAD: [Normal with no signs of head trauma.] EYES: [PERRLA, EOMI, conjunctiva and sclera normal.] ENT: [Hearing grossly intact, normal oropharynx.] NECK: [Supple without JVD. There is no tenderness, lymphadenopathy, or masses. No thyromegaly. Normal carotid upstrokes without bruits.] LUNGS: [Clear breath sounds bilaterally. No wheezes, or rhonchi.] HEART: [Normal rate and rhythm. Normal S1 and S2 without murmurs, gallop or rub.] VASC: [Peripheral pulses +2 bilaterally.] ABD: [Bowel sounds normal, soft, nontender, no masses, no organomegaly. No au dible bruits.] : [Not examined] LYMPH: [No lymphadenopathy noted.] EXT: [Bilateral lower extremity 1+ pitting edema.] SKIN: [No rashes or lesions noted.] NEURO: [Awake, alert, and oriented x3. No focal sensory or strength deficits noted.] Vital Signs (last 8hr) Date Time Temp Pulse Resp B/P (MAP) Pulse Ox O2 Delivery O2 Flow Rate FiO2 08/25/25 09:32 98.4 65 20 115/50 95 Room Air 08/25/25 06:48 74 24 N/A Room Air 08/25/25 04:40 65 19 N/A Room Air 0.0 08/25/25 04:00 98.2 74 20 138/72 95 Room Air 08/25/25 02:30 95 Room Air* 0 08/25/25 02:03 97.9 71 16 134/68 95 Room Air Laboratory: [ ] Hematology Labs: Test 08/25/25 04:48 08/24/25 05:45 08/23/25 19:39 Range/Units White Blood Count 9.0 # 4.8-10.8 K/uL Red Blood Count 3.30 L 4.50-6.20 MIL/uL Hemoglobin 7.5 L 14.0-18.0 g/dL Hematocrit 26.5 L 42-54 % Mean Corpuscular Volume 80.3 79-99 fL Mean Corpuscular Hemoglobin 22.7 L 27.0-33.0 pg Mean Corpuscular Hemoglobin Concent 28.3 L 32.0-36.0 g/dL Red Cell Distribution Width 17.2 H 11.0-15.5 % Platelet Count 155 130-400 K/uL Mean Platelet Volume 11.2 H 7.5-10.5 fL Nucleated Red Blood Cells 0.0 0.0-0.19 % Immature Granulocyte % (Auto) 0.4 0-1 % Neutrophils (%) (Auto) 88.0 H 40.0-77.0 % Lymphocytes (%) (Auto) 6.1 L 21.0-51.0 % Monocytes (%) (Auto) 5.4 3.0-13.0 % Eosinophils (%) (Auto) 0.0 0.0-8.0 % Basophils (%) (Auto) 0.1 0.0-5.0 % Neutrophils # (Auto) 12.9 H 1.8-7.7 K/uL Lymphocytes # (Auto) 0.9 L 1.0-4.8 K/uL Monocytes # (Auto) 0.8 0.1-1.0 K/uL Eosinophils # (Auto) 0.00 0.00-0.70 K/uL Basophils # (Auto) 0.02 0.00-0.20 K/uL Absolute Immature Granulocyte (auto 0.06 0-1 K/uL White Cell Morphology Comment CONSISTENT W/DIFF Red Blood Cell Morphology See comments Chemistry Labs: Test 08/25/25 05:33 08/25/25 04:48 08/24/25 05:45 08/23/25 19:39 Range/Units Whole Blood Glucose 111 H 70-110 MG/DL Sodium Level 138 136-145 mmol/L Potassium Level 3.6 3.5-5.1 mmol/L Chloride Level 102 101-111 mmol/L Carbon Dioxide Level 26 21-32 mmol/L Blood Urea Nitrogen 38 H 7-18 mg/dL Creatinine 1.9 H 0.5-1.3 mg/dL Glomerular Filtration Rate Calc 36 >90 mL/min Random Glucose 122 H 70-105 mg/dL Total Calcium 8.0 L 8.5-10.1 mg/dL Magnesium Level 2.30 1.80-2.40 mg/dL Total Bilirubin 0.4 # 0.2-1.0 mg/dL Aspartate Amino Transf (AST/SGOT) 14 10-37 U/L Alanine Aminotransferase (ALT/SGPT) 24 12-78 U/L Alkaline Phosphatase 47 L 50-136 U/L Total Protein 6.3 6.0-8.3 g/dL Albumin 3.0 L 3.5-5.0 g/dL Iron Level 11 #L 65-175 mcg/dL Total Iron Binding Capacity 336 250-450 mcg/dL Percent Iron Saturation 3.2 L 30-44 % B-Type Natriuretic Peptide 3470 H 0-100 pg/mL Procalcitonin 1.00 H 0.05-0.5 ng/mL Troponin I High Sensitivity 36 4-75 ng/L Coagulation Labs: Test 08/24/25 13:59 Range/Units D-Dimer Quantitative (PE/DVT) 652 *H 0-500 ng/mL Diagnostics / Radiology: [Copy/Paste Echos/Imaging Report here] Assessment: [CAD- 2v CABG (VANESSA-LAD, SVG-OM ) DECEMBER 2023 Aortic stenosis status post bioprosthetic aortic valve placement December of 2023 Chronic systolic and diastolic heart failure Paroxysmal atrial fibrillation status post DCCV 08/23/2025 COPD Hypertension Type 2 diabetes mellitus Hyperlipidemia DWIGHT ] Plan: [#acute on chronic combined systolic and diastolic heart failure ICM-LVEF 45-50%-NYHA II Patient was admitted on 08/23/2025 due to ongoing and progressive shortness of breath, generalized [place] [address], BNP 3470, D-dimer 652, troponin 36 2D echocardiogram (08/24/2025) LVEF 45-50%, severely dilated left atrium Strict I's and O's and daily weights. Continue Lasix 20 mg every8 hours, creatinine has been up trending currently at 1.9 Tomorrow we will assess transitioning to oral Lasix Optimize GDM T: Aldactone 25 mg daily Resume his home Entresto 97-103 mg and Toprol-XL 100 mg every 12 hours ] Farxiga has been discontinued due history of peroneal yeast infections #paroxysmal atrial fibrillation Status post SREEKANTH DCCV on 08/15/2025 Review of telemetry shows sinus rhythm, heart rate in the 70s Presenting ECG sinus rhythm with a heart rate of 62 beats per minute Patient currently denies any cardiac symptoms or anginal equivalents Please keep on telemetry, monitor/replace electrolytes as needed Continue Eliquis5 mg every12 hours Resume home dronedarone 200 mg every 12 hours Thank you for this consult cardiology will continue to follow along Magdy lynn MD ATTESTATION BY PHYSICIAN I have seen and examined the patient, reviewed the above documentation, participated in medical decision making, made necessary modifications, and agree with the treatment plan as documented by my mid-level provider above. MD MAYITO Carr JAMES R MD Aug 25, 2025 10:24
[2025-08-25] MEDS ORDERED: PHARMACY COMMUNICATION MISC SCH (11:00)
--- NOTE | 2025-08-25 11:42 | PN ---
[facility] PROGRESS NOTE Date of Service: Aug 25, 2025 Time of Service: 11:40 SUBJECTIVE: 08/24 the patient has been seen and examined, remains in the emergency room, sitting comfortably in the chair, he feels less short of breath compared to time of admission, he is alert oriented x3, denies dizziness, no headache, no chest pain, no cough, no nausea, no vomiting, no abdominal pain, no diarrhea, no constipation, no melena, no hematochezia, no hematemesis. Vital signs reviewed, blood pressure 107/59, spiked fever 101.3, saturating 98% 2 L nasal cannula. CBC shows a hemoglobin of 8.0, hematocrit 27.0, WBC 14.6, platelet count of 190. Sodium 138, potassium 4.1, BUN 33, creatinine 1.8. ProBNP 3470. Procalcitonin 1.0. Albumin 3.2. Serology test to include influenza and SARS antigen negative. UA negative leukocyte esterase, too numerous to count RBC, 2-5 WBC per high-power field. Chest x-ray no acute cardiopulmonary pathology. CT chest symmetrical dependent atelectasis in bilateral posterior basal lungs, no focal consolidation, pneumonia, pleural effusion, pneumothorax or mass, moderate cardiomegaly, mild ectatic ascending thoracic aorta measures up to 4 cm in diameter, mildly dilated pulmonary trunk measures up to 4 cm diameter, concerning for mild pulmonary artery hypertension, status post sternotomy and CABG. Continue the patient on empiric antibiotics with Rocephin and azithromycin, follow up Streptococcus pneumoniae and Legionella pneumoniae antigen, rapid strep a, we will request Pulmonary consultation. We will request Infectious Disease consultation. Follow UA, urine culture, blood cultures. Follow repeat chest x-ray in the next 24 hours. Continue the patient on furosemide 20 mg IV q.8 hours, echocardiogram to evaluate ejection fraction, Cardiology will be consulted. Follow a.m. labs. 08/25 the patient has been seen and examined, remains admitted to the medical floor, comfortable sitting in chair, alert oriented x3, hemodynamically stable, afebrile, saturating normal room air, denied chest pain, shortness shortness for breath, no nausea, no vomiting, no abdominal discomfort. Hemoglobin today 7.5, hematocrit 26.5. Creatinine 1.9. Follow iron level panel, stool occult blood. Septic workup to include Legionella antigen negative, blood cultures negative. Continue the patient on empiric IV antibiotics. Apparently the patient taking amiodarone 400 mg p.o. b.i.d., follow Cardiology input and recommendation. In the meantime we will start amiodarone 200 mg p.o. b.i.d., discussed with both the patient and the at bedside, all questions answered, agreed and understood the information provided. REVIEW OF SYSTEMS CONSTITUTIONAL: Complains of fever and chills Denies night sweats. No unintentional weight loss reported. NEUROLOGICAL: Complains of generalized body weakness Denies headache, amaurosis fugax, sensory deficit, vertigo/spinning sensation, gait abnormalities, or tremors. ENT: No hearing loss, otalgia, otorrhea, rhinitis, rhinorrhea, hoarseness, or sore throat. CARDIOVASCULAR: Denies any exertional angina, dyspnea on exertion, orthopnea, paroxysmal nocturnal dyspnea, palpitations, life-threatening arrhythmias, claudication. PULMONARY: Complaints of dry cough Denies any shortness of breath, phlegm/sputum, hemoptysis, pleuritic chest pain. SLEEP: Denies morning headaches, daytime somnolence or napping. Denies difficulty falling asleep, staying asleep, waking from sleep. Denies knowledge of snoring. GASTROINTESTINAL: Denies any type of dysphagia to either liquids or solids. Denies nausea, vomiting, pyrosis, early satiety, abdominal pain, diarrhea, cons tipation, or changes in stool consistency or caliber. Denies coffee-ground emesis, hematemesis, hematochezia, or melanotic stools. GENITOURINARY: Denies frequency, urgency, nocturia, hematuria or incontinence (Storage/Irritative symptoms.) Low urinary stream, straining to void, urinary intermittency or hesitancy, splitting of the voiding stream, terminal dribbling. ENDOCRINOLOGIC: Denies polyuria, polydipsia, polyphagia or heat/cold intolerances. HEMATOLOGIC: Denies thrombophilia/previous clots, or coagulopathy/bleeding disorders. ONCOLOGIC: Denies personal history of malignancy. DERMATOLOGIC: Denies rashes or pruritus. PSYCHIATRIC: Denies any suicidal or homicidal ideation. Denies hallucinations. PHYSICAL EXAM GENERAL APPEARANCE: The patient is awake, alert, and oriented, in no acute cardiopulmonary distress. NEUROLOGICAL: Cranial nerves II-XII grossly intact. Motor is 5/5 in bilateral upper and lower extremities proximal to distal. No sensory deficits. HEENT: Face is symmetric. Pupils are equal and reactive. Extraocular movements are intact. NECK: Supple. No JVD. No thyromegaly. No submental, submandibular, pre- /postauricular, occipital or supraclavicular lymphadenopathy. CHEST: Normal chest expansion. No Telemetry. LUNGS: Absence of any rales, rhonchi or any wheezing. CARDIOVASCULAR: Regular. S1 and S2 normal. No appreciable rubs, murmurs or gallops. ABDOMEN: Soft, nontender, and nondistended. There is no rebound, voluntary guarding, or rigidity. : Deferred. No Kuo. EXTREMITIES: Edema to bilateral lower extremities SKIN: No skin breakdown. Vital Signs (last 8hr) Date Time Temp Pulse Resp B/P (MAP) Pulse Ox O2 Delivery O2 Flow Rate FiO2 08/25/25 09:32 98.4 65 20 115/50 95 Room Air 08/25/25 06:48 74 24 N/A Room Air 08/25/25 04:40 65 19 N/A Room Air 0.0 08/25/25 04:00 98.2 74 20 138/72 95 Room Air LABS: Laboratory: Test 08/25/25 05:33 08/25/25 04:50 08/25/25 04:48 08/24/25 17:13 Range/Units Whole Blood Glucose 111 H 70-110 MG/DL Blood Gas Specimen Type Arterial Arterial Blood pH 7.397 7.350-7.450 Arterial Blood Partial Pressure CO2 39 35-48 mmHg Arterial Blood Partial Pressure O2 69.2 L 83.0-108.0 mmHg Arterial Blood HCO3 23.6 21.0-28.0 mmol/L Arterial Blood Oxygen Saturation 92.1 L 94.0-98.0 % Arterial Blood Base Excess -1.1 -2.0-3.0 mmol/L Hemoglobin (Blood Gas) 8.1 L 13.5-17.5 g/dL Sodium (Blood Gas) 138 136-145 MMOL/L Bedside Potassium (Blood Gas) 3.6 3.4-4.5 MMOL/L Bedside Chloride (Blood Gas) 105 98-107 MMOL/L Bedside Glucose (Blood Gas) 123 H 65-95 MG/DL Bedside Ionized Calcium (Blood Gas) 1.12 L 1.15-1.33 MMOL/L Bedside Lactic Acid (Blood Gas) 1.00 H 0.36-0.75 MMOL/L Blood Gas Temperature 37.0 35.5-37.0 CELSIUS Blood Gas Vent Mode ROOMAIR ROOM AIR FiO2 21.0 % Blood Gas Specimen Comment RB RN CHAZ White Blood Count 9.0 # 4.8-10.8 K/uL Red Blood Count 3.30 L 4.50-6.20 MIL/uL Hemoglobin 7.5 L 14.0-18.0 g/dL Hematocrit 26.5 L 42-54 % Mean Corpuscular Volume 80.3 79-99 fL Mean Corpuscular Hemoglobin 22.7 L 27.0-33.0 pg Mean Corpuscular Hemoglobin Concent 28.3 L 32.0-36.0 g/dL Red Cell Distribution Width 17.2 H 11.0-15.5 % Platelet Count 155 130-400 K/uL Mean Platelet Volume 11.2 H 7.5-10.5 fL Nucleated Red Blood Cells 0.0 0.0-0.19 % Sodium Level 138 136-145 mmol/L Potassium Level 3.6 3.5-5.1 mmol/L Chloride Level 102 101-111 mmol/L Carbon Dioxide Level 26 21-32 mmol/L Blood Urea Nitrogen 38 H 7-18 mg/dL Creatinine 1.9 H 0.5-1.3 mg/dL Glomerular Filtration Rate Calc 36 >90 mL/min Random Glucose 122 H 70-105 mg/dL Total Calcium 8.0 L 8.5-10.1 mg/dL Magnesium Level 2.30 1.80-2.40 mg/dL Total Bilirubin 0.4 # 0.2-1.0 mg/dL Aspartate Amino Transf (AST/SGOT) 14 10-37 U/L Alanine Aminotransferase (ALT/SGPT) 24 12-78 U/L Alkaline Phosphatase 47 L 50-136 U/L Total Protein 6.3 6.0-8.3 g/dL Albumin 3.0 L 3.5-5.0 g/dL Group A Streptococcus Rapid negative NEGATIVE Test 08/24/25 13:59 08/24/25 05:45 08/23/25 20:18 08/23/25 19:45 Range/Units D-Dimer Quantitative (PE/DVT) 652 *H 0-500 ng/mL Immature Granulocyte % (Auto) 0.4 0-1 % Neutrophils (%) (Auto) 88.0 H 40.0-77.0 % Lymphocytes (%) (Auto) 6.1 L 21.0-51.0 % Monocytes (%) (Auto) 5.4 3.0-13.0 % Eosinophils (%) (Auto) 0.0 0.0-8.0 % Basophils (%) (Auto) 0.1 0.0-5.0 % Neutrophils # (Auto) 12.9 H 1.8-7.7 K/uL Lymphocytes # (Auto) 0.9 L 1.0-4.8 K/uL Monocytes # (Auto) 0.8 0.1-1.0 K/uL Eosinophils # (Auto) 0.00 0.00-0.70 K/uL Basophils # (Auto) 0.02 0.00-0.20 K/uL Absolute Immature Granulocyte (auto 0.06 0-1 K/uL Iron Level 11 #L 65-175 mcg/dL Total Iron Binding Capacity 336 250-450 mcg/dL Percent Iron Saturation 3.2 L 30-44 % B-Type Natriuretic Peptide 3470 H 0-100 pg/mL Procalcitonin 1.00 H 0.05-0.5 ng/mL Urine Color YELLOW YELLOW Urine Appearance CLEAR CLEAR Urine pH 5.5 5.0-8.0 Urine Specific [place] 1.029 1.001-1.031 Urine Protein 30 H NEGATIVE mg/dL Urine Glucose (UA) >=1000 H NEGATIVE mg/dL Urine Ketones 5 H NEGATIVE mg/dL Urine Occult Blood SMALL H NEGATIVE Urine Nitrate NEGATIVE NEGATIVE Urine Bilirubin SMALL H NEGATIVE mg/dL Urine Urobilinogen 1.0 0.2-1.0 mg/dL Urine Leukocyte Esterase NEGATIVE NEGATIVE Hu/uL Urine RBC TNTC H 0-1 /HPF Urine WBC 2-5 H 0-1 /HPF Urine Squamous Epithelial Cells RARE 0-2 /HPF Urine Bacteria RARE None Seen /HPF Influenza Type A Antigen Negative For Type A NEGATIVE Influenza Type B Antigen Negative For Type B NEGATIVE SARS-CoV-2 Antigen (Rapid) PRESUMPTIVE NEGATIVE NEGATIVE Test 08/23/25 19:39 Range/Units White Cell Morphology Comment CONSISTENT W/DIFF Red Blood Cell Morphology See comments Troponin I High Sensitivity 36 4-75 ng/L Current Medications Medications (Trade) Dose Ordered Sig/Ellen Route PRN Reason Start Time Stop Time Status Last Admin Dose Admin Acetaminophen (TYLenol 325MG TAB) 650 mg Q4H PRN PO MILD PAIN (1-3) 08/23/25 23:00 09/22/25 22:59 Acetaminophen (TYLenol 325MG TAB) 650 mg Q6H PRN PO TEMPERATURE GREATER THAN 101.5 08/23/25 23:00 09/22/25 22:59 08/24/25 03:58 650 MG Albuterol Sulfate (Proventil 0.083% 2.5mg/3ml) 2.5 mg Q4H PRN IH SHORTNESS OF BREATH 08/25/25 03:30 09/24/25 03:29 Amiodarone HCl (pacERONE 200MG) 200 mg BID PO 08/25/25 21:00 09/24/25 20:59 Apixaban (EliquIS) 5 mg BID PO 08/24/25 21:00 09/23/25 20:59 08/25/25 10:00 5 MG Aspirin (Aspirin 81mg Chew Tab) 81 mg DAILY PO 08/25/25 09:00 09/24/25 08:59 08/25/25 10:00 81 MG Atorvastatin Calcium (LIPItor 10MG) 10 mg HS PO 08/24/25 21:00 09/23/25 20:59 08/24/25 22:19 10 MG Azithromycin 250 ml @ 250 mls/hr Q24H IV 08/23/25 23:00 08/24/25 00:15 DC Azithromycin 250 ml @ 250 mls/hr Q24H IV 08/24/25 20:00 09/03/25 19:59 08/24/25 22:17 250 MLS/HR Ceftriaxone Sodium 1 gm/ Sodium Chloride 50 ml @ 100 mls/hr Q24H IV 08/23/25 23:00 08/23/25 23:15 DC Ceftriaxone Sodium (ROCEphine 1G INJ) 1 gm Q24H IVPB 08/23/25 23:30 08/24/25 00:16 DC Ceftriaxone Sodium (ROCEphine 1G INJ) 1 gm Q24H IVPB 08/24/25 20:00 09/03/25 19:59 08/24/25 22:17 1 GM Dextrose (D50w) 50 ml AD PRN IV HYPOGLYCEMIA PROTOCOL 08/24/25 13:00 09/23/25 12:59 Famotidine (Pepcid 20mg Tab) 20 mg DAILY PO 08/23/25 23:00 09/22/25 22:59 08/25/25 10:00 20 MG Furosemide (LASix 20MG VIAL) 20 mg Q8H IV 08/23/25 23:00 08/24/25 00:15 DC Furosemide (LASix 20MG VIAL) 20 mg Q8H IV 08/24/25 05:00 09/23/25 04:59 08/25/25 06:18 20 MG Glucagon (Glucagon 1mg Kit) 1 mg AD PRN IM HYPOGLYCEMIA PROTOCOL 08/24/25 13:00 09/23/25 12:59 Guaifenesin (RobiTUSSin SUGAR-FREE 100 MG/ 5 ML UDCUP) 400 mg Q4H4 PRN PO COUGH 08/25/25 03:30 09/24/25 03:29 Home Med (Home Medication) BID PO 08/24/25 21:00 09/23/25 20:59 Home Med (Home Medication) DAILY IH 08/25/25 09:00 09/24/25 08:59 Home Med (Home Medication) DAILY PO 08/25/25 09:00 09/24/25 08:59 Home Med (Home Medication) DAILY PO 08/25/25 09:00 09/24/25 08:59 Home Med (Home Medication) HS PO 08/24/25 21:00 09/23/25 20:59 Hydralazine HCl (APRESOLine 20MG INJ) 5 mg Q6H PRN IV ADMINISTER FOR SBP > 160 08/24/25 13:00 09/23/25 12:59 Insulin Human Regular (humuLIN R 100 UNIT/ML 3ML) INSULIN SLIDING SCAL... ACHS SQ 08/24/25 16:30 09/23/25 16:29 08/24/25 17:15 2 UNIT Ipratropium [place] (AtrovENT UD) 0.5 mg Q4H PRN IH SHORTNESS OF BREATH 08/25/25 03:30 09/24/25 03:29 Miscellaneous Medication (Amiodarone HCl ) 400 mg BID PO 08/24/25 21:00 08/25/25 10:33 DC Ondansetron HCl (zoFRAN 4MG INJ) 4 mg Q6H PRN IV NAUSEA/VOMITING 08/23/25 23:00 09/22/25 22:59 08/24/25 03:58 4 MG Pharmacy Profile Note (Pharmacy Communication) AD MISC 08/25/25 11:00 09/01/25 10:59 Spironolactone (Aldactone 25mg) 25 mg AM PO 08/25/25 09:00 09/24/25 08:59 08/25/25 10:00 25 MG DIAGNOSTICS / RADIOLOGY: [ ] ASSESSMENT: Acute CHF exacerbation POA Suspected community-acquired pneumonia POA Acute leukocytosis POA Acute anemia POA Hyponatremia POA Uncontrolled diabetes POA Morbid obesity POA Hypertension. Hyperlipidemia POA Coronary Artery disease CABG x2 and aortic valve replacement POA PLAN: the patient has been seen and examined, remains admitted to the medical floor, comfortable sitting in chair, alert oriented x3, hemodynamically stable, afebrile, saturating normal room air, denied chest pain, shortness shortness for breath, no nausea, no vomiting, no abdominal discomfort. Hemoglobin today 7.5, hematocrit 26.5. Creatinine 1.9. Follow iron level panel, stool occult blood. Septic workup to include Legionella antigen negative, blood cultures negative. Continue the patient on empiric IV antibiotics. Apparently the patient taking amiodarone 400 mg p.o. b.i.d., follow Cardiology input and recommendation. In the meantime we will start amiodarone 200 mg p.o. b.i.d., discussed with both the patient and the at bedside, all questions answered, agreed and u nderstood the information provided. NEURO: Minimize central acting medications as possible. Fall Precautions. Well lighted room through the day and minimize interruptions through the night to prevent acute delirium. PULMONARY: Supplemental 02 as needed BiPAP as necessary, for respiratory distress Titrate Fio2 to keep Spo2 > or = 90% DuoNebs and CPT as needed IS hourly while awake for pulmonary hygiene prn Out of bed to chair as tolerated Maintain aspiration precautions at all times CARDIOVASCULAR: Follow hemodynamics. Vital signs per facility protocol GI & NUTRITION: Continue nutritional support Aspirations precautions Prokinetic agents and laxatives as needed KIDNEYS & ELECTROLYTES: Strict monitoring of intake and output Daily weights Avoid nephrotoxic agents Monitor electrolytes and replace as needed Goal urine output of 30mL/hr or 0.5mL/kg/hr Medications to be dosed according to renal function. Avoid contrast if possible ENDOCRINE: Maintain blood glucose between 100-180 at all times. Insulin sliding scale for blood glucose management Hypoglycemia and hyperglycemia protocol in place INFECTIOUS DISEASE: Trend temperature, WBC and procalcitonin level Follow cultures, deescalate antibiotics as soon as possible. Panculture if new onset fever HEMATOLOGY & COAGULATION: Monitor H&H. Keep Hgb > 7 Transfuse 1 unit of PRBC for Hgb < 7 Transfuse 1 pack of platelets of platelets < 20, 000 Watch for any signs and symptoms of bleeding SKIN: Pressure ulcer prevention per facility protocol Specialty mattress as needed ORTHO/REHAB Continue PT/OT PRN: MEDICATIONS Tylenol 650 mg po every 4 hrs for fever zofran 4 mg IV every 6 hrs for n/v Hydralazine 5 mg IV every 4 hrs systolic pressure > 160 bowel regiment: lactulose 20 gm PO BID PRN constipation Supportive measures: Continue GI and DVT prophylaxis Disposition: Pending improvement in clinical condition All questions answered time spent: > 35 min NADIYA OKEEFE MD Aug 25, 2025 11:42
[2025-08-25 12:46] LABS: NUCLEATED RED BLOOD CELLS 0.0 % (0.0-0.19); PLATELET COUNT (AUTO) 176.0 K/uL (130-400); RED BLOOD CELL COUNT(AUTO) 3.52 MIL/uL (4.50-6.20); RED CELL DISTRIBUTION WIDTH 17.4 % (11.0-15.5); WHITE BLOOD COUNT (AUTO) 8.9 K/uL (4.8-10.8)
--- NOTE | 2025-08-25 12:52 | CONS ---
INFECTIOUS DISEASE CONSULTATION DATE OF SERVICE: 08/24/2025 REQUESTING PHYSICIAN: Dr. Snyder. REASON FOR CONSULTATION: Sepsis, pneumonia and antibiotic management. HISTORY OF PRESENT ILLNESS: The patient is a 74-year-old male with a history of CAD, hypertension, and atrial fibrillation on anticoagulation. He presented to the hospital with 2 days of cough and shortness of breath. Cough is dry and nonproductive. No hemoptysis or pleuritic pain. Temperature on admission was 101.5. WBC elevated at 14,000. Procalcitonin was 1.0. The patient has been admitted due to sepsis. CT chest has been done and shows some infiltrates. Denies sick contact or recent travel. No diarrhea. No abdominal pain. The patient was started on ceftriaxone and azithromycin. No dysuria or urinary frequency. PAST MEDICAL HISTORY: * Coronary artery disease. * Hypertension. * Atrial fibrillation. * Aortic stenosis. * COPD. * Diabetes mellitus. * Hypertension. * Obstructive sleep apnea. PAST SURGICAL HISTORY: * ____. * Aortic valve replacement. * Cardiac catheterization. ALLERGIES: SULFA. CURRENT MEDICATIONS: Reviewed. SOCIAL HISTORY: Lives with . No alcohol, tobacco, or illicit drug use. FAMILY HISTORY: Positive for diabetes mellitus. REVIEW OF SYSTEMS: CONSTITUTIONAL: Positive for fever, chills. No weight loss or night sweats. EYES: No eye pain. No photophobia or diplopia. HENT: No sore throat. No rhinorrhea or earache. NECK: No neck pain or neck swelling. RESPIRATORY: Positive for cough. No hemoptysis or pleuritic pain. CARDIOVASCULAR: No chest pain. No palpitation or orthopnea. GASTROINTESTINAL: No nausea, vomiting, or abdominal pain. GENITOURINARY: No dysuria. CENTRAL NERVOUS SYSTEM: No headache, dyspnea, or slurred speech. PSYCHIATRY: No depression, no suicidal ideation. MUSCULOSKELETAL: No joint swelling, erythema or tenderness. PHYSICAL EXAMINATION: GENERAL: Elderly male, awake, not in distress. VITAL SIGNS: Blood pressure ____, pulse is 65, respiratory rate 24, BP 107/54. EYES: No icterus. Pupils equal and reactive. HENT: No oral thrush seen. Moist oral mucosa. NECK: Supple. No JVD or thyromegaly. LUNGS: Good air entry. No rales, no rhonchi. CARDIOVASCULAR: S1 and S2 regular. No murmur heard. ABDOMEN: Obese, soft, nontender. Bowel sounds are present. CENTRAL NERVOUS SYSTEM: Awake, alert, oriented x 3. No focal deficits. SKIN: No rashes, no itchiness. LYMPHATIC: No peripheral lymphadenopathy. BACK: No deformity or pressure ulcer. MUSCULOSKELETAL: No joint swelling, erythema or tenderness. LABORATORY DATA: Procalcitonin 1.0, ____, creatinine 1.8. WBC 14.0, hemoglobin 8.0, platelet 190. Influenza antigen negative. ____ cause of bleeding. ASSESSMENT: A 74-year-old male with fever and shortness of breath and fever. * Renal failure. * Respiratory failure. * Atrial fibrillation. * Hypertension * Morbid obesity. * Diabetes mellitus. * Pneumonia. * Sepsis PLAN: * Continue ceftriaxone. * Continue azithromycin. * Continue bronchodilator. * Continue antidiabetic. * Continue Eliquis. * Continue antiarrhythmic agent. * Follow-up cultures. Thank you for allowing me to participate in the care of this patient. TID: [id number] RECEIPT: [id number] MTD
--- NOTE | 2025-08-25 16:57 | PN ---
INFECTIOUS DISEASE PROGRESS NOTE Date of Service: Aug 25, 2025 SUBJECTIVE: [ ] PHYSICAL EXAM EYES: Anicteric. Pupils equal and reactive. HENT: No oral thrush seen, moist Oral mucosa. NECK: Supple, no JVD or thyromegaly. LUNGS: Good air entry. No rales, no rhonchi. CARDIOVASCULAR: S1, S2 regular. No murmur heard. ABDOMEN: Soft, non tender, bowel sounds present, no organomegaly. CENTRAL NERVOUS SYSTEM: Awake, alert, oriented x 3. SKIN: No rashes, no swelling. LYMPHATICS: No peripheral lymphadenopathy. MUSCULOSKELETAL: No joint swelling, erythema or tenderness. EXTREMITIES: No cyanosis or clubbing. BACK: No deformity, no pressure ulcer. GENITOURINARY: No dysuria or hematuria. Vital Sign (Last 12 Hours) 08/25/25 08/25/25 08/25/25 08/25/25 06:48 09:32 13:14 16:35 Temp 98.4 98.2 Pulse 74 65 71 Resp 24 20 16 B/P (MAP) 115/50 146/72 Pulse Ox 95 95 96 O2 Delivery N/A Room Air Room Air Room Air Room Air* O2 Flow Rate 0 FiO2 21 21 08/25/25 16:45 Temp 98.2 Pulse 65 Resp 18 B/P (MAP) 153/72 Pulse Ox 96 O2 Delivery Room Air Intake & Output (last 24hrs) 08/24/25 08/24/25 08/25/25 15:00 23:00 07:00 Output Total 240 ml Balance -240 ml LABS: Laboratory: Test 08/25/25 15:59 08/25/25 12:36 08/25/25 04:50 08/25/25 04:48 Range/Units Whole Blood Glucose 121 H 70-110 MG/DL White Blood Count 8.9 4.8-10.8 K/uL Red Blood Count 3.52 L 4.50-6.20 MIL/uL Hemoglobin 8.1 L 14.0-18.0 g/dL Hematocrit 27.3 L 42-54 % Mean Corpuscular Volume 77.6 L 79-99 fL Mean Corpuscular Hemoglobin 23.0 L 27.0-33.0 pg Mean Corpuscular Hemoglobin Concent 29.7 L 32.0-36.0 g/dL Red Cell Distribution Width 17.4 H 11.0-15.5 % Platelet Count 176 130-400 K/uL Mean Platelet Volume 11.0 H 7.5-10.5 fL Nucleated Red Blood Cells 0.0 0.0-0.19 % Blood Gas Specimen Type Arterial Arterial Blood pH 7.397 7.350-7.450 Arterial Blood Partial Pressure CO2 39 35-48 mmHg Arterial Blood Partial Pressure O2 69.2 L 83.0-108.0 mmHg Arterial Blood HCO3 23.6 21.0-28.0 mmol/L Arterial Blood Oxygen Saturation 92.1 L 94.0-98.0 % Arterial Blood Base Excess -1.1 -2.0-3.0 mmol/L Hemoglobin (Blood Gas) 8.1 L 13.5-17.5 g/dL Sodium (Blood Gas) 138 136-145 MMOL/L Bedside Potassium (Blood Gas) 3.6 3.4-4.5 MMOL/L Bedside Chloride (Blood Gas) 105 98-107 MMOL/L Bedside Glucose (Blood Gas) 123 H 65-95 MG/DL Bedside Ionized Calcium (Blood Gas) 1.12 L 1.15-1.33 MMOL/L Bedside Lactic Acid (Blood Gas) 1.00 H 0.36-0.75 MMOL/L Blood Gas Temperature 37.0 35.5-37.0 CELSIUS Blood Gas Vent Mode ROOMAIR ROOM AIR FiO2 21.0 % Blood Gas Specimen Comment RB RN CHAZ Sodium Level 138 136-145 mmol/L Potassium Level 3.6 3.5-5.1 mmol/L Chloride Level 102 101-111 mmol/L Carbon Dioxide Level 26 21-32 mmol/L Blood Urea Nitrogen 38 H 7-18 mg/dL Creatinine 1.9 H 0.5-1.3 mg/dL Glomerular Filtration Rate Calc 36 >90 mL/min Random Glucose 122 H 70-105 mg/dL Total Calcium 8.0 L 8.5-10.1 mg/dL Magnesium Level 2.30 1.80-2.40 mg/dL Total Bilirubin 0.4 # 0.2-1.0 mg/dL Aspartate Amino Transf (AST/SGOT) 14 10-37 U/L Alanine Aminotransferase (ALT/SGPT) 24 12-78 U/L Alkaline Phosphatase 47 L 50-136 U/L Total Protein 6.3 6.0-8.3 g/dL Albumin 3.0 L 3.5-5.0 g/dL Test 11/12/25 17:13 08/24/25 13:59 08/24/25 05:45 08/23/25 20:18 Range/Units Group A Streptococcus Rapid negative NEGATIVE D-Dimer Quantitative (PE/DVT) 652 *H 0-500 ng/mL Immature Granulocyte % (Auto) 0.4 0-1 % Neutrophils (%) (Auto) 88.0 H 40.0-77.0 % Lymphocytes (%) (Auto) 6.1 L 21.0-51.0 % Monocytes (%) (Auto) 5.4 3.0-13.0 % Eosinophils (%) (Auto) 0.0 0.0-8.0 % Basophils (%) (Auto) 0.1 0.0-5.0 % Neutrophils # (Auto) 12.9 H 1.8-7.7 K/uL Lymphocytes # (Auto) 0.9 L 1.0-4.8 K/uL Monocytes # (Auto) 0.8 0.1-1.0 K/uL Eosinophils # (Auto) 0.00 0.00-0.70 K/uL Basophils # (Auto) 0.02 0.00-0.20 K/uL Absolute Immature Granulocyte (auto 0.06 0-1 K/uL Iron Level 11 #L 65-175 mcg/dL Total Iron Binding Capacity 336 250-450 mcg/dL Percent Iron Saturation 3.2 L 30-44 % B-Type Natriuretic Peptide 3470 H 0-100 pg/mL Procalcitonin 1.00 H 0.05-0.5 ng/mL Urine Color YELLOW YELLOW Urine Appearance CLEAR CLEAR Urine pH 5.5 5.0-8.0 Urine Specific [place] 1.029 1.001-1.031 Urine Protein 30 H NEGATIVE mg/dL Urine Glucose (UA) >=1000 H NEGATIVE mg/dL Urine Ketones 5 H NEGATIVE mg/dL Urine Occult Blood SMALL H NEGATIVE Urine Nitrate NEGATIVE NEGATIVE Urine Bilirubin SMALL H NEGATIVE mg/dL Urine Urobilinogen 1.0 0.2-1.0 mg/dL Urine Leukocyte Esterase NEGATIVE NEGATIVE Hu/uL Urine RBC TNTC H 0-1 /HPF Urine WBC 2-5 H 0-1 /HPF Urine Squamous Epithelial Cells RARE 0-2 /HPF Urine Bacteria RARE None Seen /HPF Test 08/23/25 19:45 08/23/25 19:39 Range/Units Influenza Type A Antigen Negative For Type A NEGATIVE Influenza Type B Antigen Negative For Type B NEGATIVE SARS-CoV-2 Antigen (Rapid) PRESUMPTIVE NEGATIVE NEGATIVE White Cell Morphology Comment CONSISTENT W/DIFF Red Blood Cell Morphology See comments Troponin I High Sensitivity 36 4-75 ng/L DIAGNOSTICS / RADIOLOGY: PATIENT: CESAR BYRNE ACCT: [id number] LOC: [facility] U: [id number] AGE/SX: 74/M ROOM: [facility] RE08/23/[address]: NADIYA OKEEFE MD : 1950 BED: 1 DIS: STATUS: ADM IN TLOC: SPEC: [id number] PRATIK: 08/24/25 STATUS: RES REQ: [id number] RECD: 08/24/[address] [facility] [address]: SUDHIR DOHERTY [employer]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 Leukocytosis, resolving. Acute renal failure. Diabetes mellitus, uncontrolled. Morbid obesity. PLAN: Continue azithromycin IV. Continue ceftriaxone. Continue antidiabetics. Continue GI prophylaxis. Avoid nephrotoxic medications. We will follow up on the culture results. This case was reviewed and discussed with my supervising physician Dr. Beltrán and the above assessment and plan was formulated and agreed upon. ATTESTATION BY PHYSICIAN I have seen and examined the patient. I reviewed the documentation, medical decision making, and treatment plan as noted by the mid-level provider above. I agree with the findings and plan of care. MINH BELTRÁN MD, MIRTA L [facility] Aug 25, 2025 16:57
--- NOTE | 2025-08-25 17:11 | PN ---
[facility] PROGRESS NOTE Date Patient Seen: Aug 25, 2025 Time of Visit: 17:11 Supervising Physician: Dr. Jeremiah Villavicencio Primary Care Physician: Dr. Mega Baez Attending: [facility] hospitalist team Outpatient Specialists: Inpatient Consults: BIS, pulmonary/critical Care team Cardiology, Infectious Disease physician PROBLEM LIST: Acute CHF exacerbation, POA LVEF 45-50%, per echo on 08/24/2025 Symmetrical dependent atelectasis in the bilateral posterior basal lungs, per CT on 08/24/2025 Mildly ectatic ascending thoracic aorta measures up to 4 cm in diameter, per CT on 08/24/2025 Mildly dilated pulmonary trunk measures up to 4 cm in diameter, concerning for mild pulmonary artery hypertension, per CT on 08/24/2024 Coronary artery disease s/p CABG x2 and aortic valve replacement Moderate cardiomegaly Acute leukocytosis Acute anemia chronic disease Hyponatremia Uncontrolled diabetes mellitus Morbid obesity, BMI 44.5 Hypertension Hyperlipidemia INTERVAL HISTORY: Assessed and patient examined while sitting in a chair outside the bed with a friend present. Awake alert and oriented and in no acute distress at this time. Prior to assessing patient reviewed and discussed case with supervising physician reviewed patient's diagnostic CT chest results patient has no pleural effusion. Reviewed and discussed this finding with patient and family member present. Reviewed and discussed laboratory results and vital signs. Patient is on room air patient reports having a CPAP at home and using it when necessary. Patient also reports having a pulmonologists that he sees regularly. Vital signs stable. Afebrile. Jeane to participate for this patient based upon the patient's presentation currently pulmonary signing conditions change please reconsult during this patient's admission and thank you again. Dispo for primary team further orders per course of stay. REVIEW OF SYSTEMS: 12 point ROS reviewed with patient. Pertinent positives mentioned above. Otherwise negative. PHYSICAL EXAM: GENERAL: Alert, weak, awake oriented x 3 HEENT: EOMI, Sclera non icteric, moist mucosa NECK: Supple, no JVD, trachea midline LUNGS: Clear breath sounds bilaterally. No wheezes HEART: Regular rate and rhythm. Normal S1 and S2, without murmurs ABD: Abdomen soft, nontender. Bowel sounds present EXT: No clubbing cyanosis, + edema NEURO: Alert and oriented X3, follows commands Vital Signs (last 8hr) Date Time Temp Pulse Resp B/P (MAP) Pulse Ox O2 Delivery O2 Flow Rate FiO2 11/13/25 16:45 98.2 65 18 153/72 96 Room Air 08/25/25 16:35 96 Room Air* 0 21 08/25/25 13:14 98.2 71 16 146/72 95 Room Air 08/25/25 09:32 98.4 65 20 115/50 95 Room Air LABS: Hematology Labs: Test 08/25/25 12:36 08/24/25 05:45 08/23/25 19:39 Range/Units White Blood Count 8.9 4.8-10.8 K/uL Red Blood Count 3.52 L 4.50-6.20 MIL/uL Hemoglobin 8.1 L 14.0-18.0 g/dL Hematocrit 27.3 L 42-54 % Mean Corpuscular Volume 77.6 L 79-99 fL Mean Corpuscular Hemoglobin 23.0 L 27.0-33.0 pg Mean Corpuscular Hemoglobin Concent 29.7 L 32.0-36.0 g/dL Red Cell Distribution Width 17.4 H 11.0-15.5 % Platelet Count 176 130-400 K/uL Mean Platelet Volume 11.0 H 7.5-10.5 fL Nucleated Red Blood Cells 0.0 0.0-0.19 % Immature Granulocyte % (Auto) 0.4 0-1 % Neutrophils (%) (Auto) 88.0 H 40.0-77.0 % Lymphocytes (%) (Auto) 6.1 L 21.0-51.0 % Monocytes (%) (Auto) 5.4 3.0-13.0 % Eosinophils (%) (Auto) 0.0 0.0-8.0 % Basophils (%) (Auto) 0.1 0.0-5.0 % Neutrophils # (Auto) 12.9 H 1.8-7.7 K/uL Lymphocytes # (Auto) 0.9 L 1.0-4.8 K/uL Monocytes # (Auto) 0.8 0.1-1.0 K/uL Eosinophils # (Auto) 0.00 0.00-0.70 K/uL Basophils # (Auto) 0.02 0.00-0.20 K/uL Absolute Immature Granulocyte (auto 0.06 0-1 K/uL White Cell Morphology Comment CONSISTENT W/DIFF Red Blood Cell Morphology See comments Chemistry Labs: Test 08/25/25 15:59 08/25/25 04:48 08/24/25 05:45 08/23/25 19:39 Range/Units Whole Blood Glucose 121 H 70-110 MG/DL Sodium Level 138 136-145 mmol/L Potassium Level 3.6 3.5-5.1 mmol/L Chloride Level 102 101-111 mmol/L Carbon Dioxide Level 26 21-32 mmol/L Blood Urea Nitrogen 38 H 7-18 mg/dL Creatinine 1.9 H 0.5-1.3 mg/dL Glomerular Filtration Rate Calc 36 >90 mL/min Random Glucose 122 H 70-105 mg/dL Total Calcium 8.0 L 8.5-10.1 mg/dL Magnesium Level 2.30 1.80-2.40 mg/dL Total Bilirubin 0.4 # 0.2-1.0 mg/dL Aspartate Amino Transf (AST/SGOT) 14 10-37 U/L Alanine Aminotransferase (ALT/SGPT) 24 12-78 U/L Alkaline Phosphatase 47 L 50-136 U/L Total Protein 6.3 6.0-8.3 g/dL Albumin 3.0 L 3.5-5.0 g/dL Iron Level 11 #L 65-175 mcg/dL Total Iron Binding Capacity 336 250-450 mcg/dL Percent Iron Saturation 3.2 L 30-44 % B-Type Natriuretic Peptide 3470 H 0-100 pg/mL Procalcitonin 1.00 H 0.05-0.5 ng/mL Troponin I High Sensitivity 36 4-75 ng/L Coagulation Labs: Test 08/24/25 13:59 Range/Units D-Dimer Quantitative (PE/DVT) 652 *H 0-500 ng/mL DIAGNOSTICS / RADIOLOGY RESULTS: [ ] PLAN Continue to monitor respirations closely. Obtain ABGs. Oxygen therapy as needed to keep SpO2 equal to greater than 92%. Albuterol and Atrovent nebulizer treatments PRN shortness of breath. Continue antibiotic therapy Zithromax IV and Rocephin IV. Follow streptococcal pneumonia and Legionella pneumonia antigen. Follow blood cultures, urine cultures. Continue Lasix 20 mg IV q.8 hours. Dispo for primary team CL MEHTA AGACNP Aug 25, 2025 17:11
--- NOTE | 2025-08-25 21:00 | NUR ---
INSULIN REFUSED PATIENT REFUSED ALL INSULIN AT THIS TIME, SUGAR 211. PATIENT SIGNED REFUSAL FORM, FILED IN CHART.
--- NOTE | 2025-08-26 00:16 | HMCIMG ---
STUDY: CT ABDOMEN AND PELVIS WITH IV CONTRAST CLINICAL HISTORY: Follow-up evaluation; prior CT demonstrated a 16 ??? 10 mm left renal calculus and a 2 ??? 1.7 cm fat-density lesion in the medial limb of the left adrenal gland. TECHNIQUE: Axial contrast-enhanced CT of the abdomen and pelvis with coronal and sagittal reformations. COMPARISON: Prior CT abdomen/pelvis (date unspecified) referenced. FINDINGS: LUNG BASES Dependent pulmonary interstitial changes noted. Median sternotomy wires present. No pleural effusion. HEART Cardiomegaly with transverse cardiac diameter measuring 17 cm. LIVER AND BILIARY SYSTEM Fatty liver changes. No focal hepatic lesion. No biliary dilatation. GALLBLADDER Unremarkable. SPLEEN Normal. PANCREAS Normal. No ductal dilatation. ADRENALS Stable left adrenal lipoma corresponding to the previously described 2 ??? 1.7 cm fat-density lesion in the medial limb. Right adrenal normal. KIDNEYS AND URETERS Left pelviureteric junction (PUJ) calculus measuring 2 ??? 1.2 cm, with mild left hydronephrosis. Perinephric fat stranding present bilaterally. Previously reported 16 ??? 10 mm left mid-pole calculus remains present. No right renal calculus. No renal mass. URINARY BLADDER Normal wall thickness. PROSTATE Enlarged prostate, volume approximately 38 cc. BOWEL Sigmoid colonic diverticulosis without acute inflammation. Appendix measures 0.3 cm, normal. No bowel obstruction. PERITONEUM No free fluid or free intraperitoneal air. VASCULATURE Aorta and major abdominal vessels are normal in caliber. BONES No acute or aggressive osseous abnormality. IMPRESSION: * Left PUJ calculus (2 ??? 1.2 cm) with mild left hydronephrosis. * Stable left adrenal lipoma, unchanged from prior exam. * Fatty liver. * Cardiomegaly with median sternotomy changes; dependent pulmonary interstitial markings. * Bilateral perinephric fat stranding without new focal renal lesion. * Previously reported 16 ??? 10 mm left mid-pole renal calculus remains present. * Sigmoid diverticulosis without diverticulitis; appendix normal. * Enlarged prostate (38 cc). * Comparison: PUJ calculus and hydronephrosis represent new or progressed findings compared with prior report; left adrenal lipoma stable. * Radiologic???clinical correlation: Imaging features consistent with left-sided obstructive uropathy due to PUJ calculus, with additional chronic changes as described. /Joss
[2025-08-26 00:50] VITALS: BP 124/61; PULSE 69; RESP 18; TEMP 98.1
[2025-08-26 04:10] VITALS: BP 136/66; PULSE 66; RESP 19; TEMP 98.5
[2025-08-26 06:46] LABS: NUCLEATED RED BLOOD CELLS 0.0 % (0.0-0.19); PLATELET COUNT (AUTO) 201.0 K/uL (130-400); RED BLOOD CELL COUNT(AUTO) 3.68 MIL/uL (4.50-6.20); RED CELL DISTRIBUTION WIDTH 17.2 % (11.0-15.5); WHITE BLOOD COUNT (AUTO) 8.4 K/uL (4.8-10.8)
[2025-08-26 07:33] VITALS: PULSE 71; RESP 20; O2SAT 93
[2025-08-26 08:00] VITALS: BP 149/77; PULSE 74; RESP 18; TEMP 98.5; O2SAT 95
[2025-08-26 08:03] LABS: ASPARTATE AMINOTRANSFERASE 25.0 U/L (10-37); CREATININE 1.5 mg/dL (0.5-1.3); GLOMERULAR FILTR. RATE CALC 48.0 mL/min (>90); GLUCOSE,RANDOM 103.0 mg/dL (70-105); SODIUM SERUM 142.0 mmol/L (136-145); TOTAL PROTEIN, SERUM 6.9 g/dL (6.0-8.3); UREA NITROGEN, BLOOD 32.0 mg/dL (7-18)
--- NOTE | 2025-08-26 08:18 | PN ---
[facility] CARDIOLOGY PROGRESS NOTE Date Patient Seen: Aug 26, 2025 Time of Visit: 08:16 Problem List: AE combined CHF Interval History: Reports no shortness of breath, orthopnea or PND. He has lower extremity edema which he states is at baseline. Physical Examination: GENERAL: [No acute distress.] NECK: [ Normal carotid upstrokes without bruits.] LUNGS: [Clear breath sounds bilaterally. No wheezes, or rhonchi.] HEART: [Normal rate and rhythm. Normal S1 and S2 without murmurs, gallop or rub.] VASC: [Peripheral pulses +2 bilaterally.] EXT: [Bilateral lower extremity 1+ pitting edema.] SKIN: [No rashes or lesions noted.] NEURO: [Awake, alert, and oriented x3. No focal sensory or strength deficits noted.] Laboratory: [ ] Hematology Labs: Test 08/26/25 06:24 Range/Units White Blood Count 8.4 4.8-10.8 K/uL Red Blood Count 3.68 L 4.50-6.20 MIL/uL Hemoglobin 8.4 L 14.0-18.0 g/dL Hematocrit 28.6 L 42-54 % Mean Corpuscular Volume 77.7 L 79-99 fL Mean Corpuscular Hemoglobin 22.8 L 27.0-33.0 pg Mean Corpuscular Hemoglobin Concent 29.4 L 32.0-36.0 g/dL Red Cell Distribution Width 17.2 H 11.0-15.5 % Platelet Count 201 130-400 K/uL Mean Platelet Volume 11.1 H 7.5-10.5 fL Nucleated Red Blood Cells 0.0 0.0-0.19 % Chemistry Labs: Test 08/26/25 06:24 08/26/25 05:24 Range/Units Sodium Level 142 136-145 mmol/L Potassium Level 3.4 L 3.5-5.1 mmol/L Chloride Level 106 101-111 mmol/L Carbon Dioxide Level 25 21-32 mmol/L Blood Urea Nitrogen 32 H 7-18 mg/dL Creatinine 1.5 H 0.5-1.3 mg/dL Glomerular Filtration Rate Calc 48 >90 mL/min Random Glucose 103 70-105 mg/dL Total Calcium 8.1 L 8.5-10.1 mg/dL Magnesium Level 2.20 1.80-2.40 mg/dL Total Bilirubin 0.3 0.2-1.0 mg/dL Aspartate Amino Transf (AST/SGOT) 25 10-37 U/L Alanine Aminotransferase (ALT/SGPT) 28 12-78 U/L Alkaline Phosphatase 49 L 50-136 U/L Total Protein 6.9 6.0-8.3 g/dL Albumin 3.1 L 3.5-5.0 g/dL Whole Blood Glucose 98 # 70-110 MG/DL Coagulation Labs: Test 08/24/25 13:59 Range/Units D-Dimer Quantitative (PE/DVT) 652 *H 0-500 ng/mL Diagnostics / Radiology: IMPRESSION: No deep venous thrombosis evident in the bilateral lower extremity. No significant interval changes. 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-50%-NYHA II Paroxysmal atrial fibrillation status post DCCV 08/23/2025 on chronic OAC DOAC Eliquis COPD Hypertension Type 2 diabetes mellitus Hyperlipidemia DWIGHT Plan: [#acute on chronic combined systolic and diastolic heart failure Patient was admitted on 08/23/2025 due to ongoing and progressive shortness of breath, generalized weakness [place] [address], BNP 3470, D-dimer 652, troponin 36 2D echocardiogram (08/24/2025) LVEF 45-50%, severely dilated left atrium Transition to home bumex 1mg in AM, 1mg in afternoon Optimize GDMT: Aldactone 25 mg daily Continue home Entresto 97-103 mg and Toprol-XL 100 mg every 12 hours Farxiga has been discontinued due history of perineal yeast infections Reduce amiodarone to maintenance dose of 200mg q daily. AFRICA CALDERON DO Aug 26, 2025 08:18
[2025-08-26] MEDS: PoTASSium chloRIDE 20MEQ ER 20 MEQ ERTAB PO ONE (10:04)
[2025-08-26 12:00] VITALS: BP 145/79; PULSE 68; RESP 18; TEMP 98.1
[2025-08-26] MEDS ORDERED: FURO20TA6 PO (13:16)
--- NOTE | 2025-08-26 13:25 | DS ---
Discharge Summary Hospital Course Summary: Date of service 08/26/2025 Patient admitted to hospital August 23, 2025 with the following history of present illness This is a 74-year-old male with past medical history of atrial fibrillation, CHF, artery disease with CABG x2 and aortic valve replacement, Chronic obstructive pulmonary disease, diabetes, hypertension ,hyperlipidemia, restless leg syndrome and obstructive sleep apnea on CPAP at home who was brought by EMS to the ED complaints of dizziness and weakness started today. As per ,patient started having occasional dry cough for the past 2 days and today he developed fever T101.5 and patient was complaining of being generally weak and unable to get up and walk and noted patient started getting confused so she called the ambulance she said. Patient seen and examined in the Ed awake,alert and coherent,on his baseline now and appears comfortable.Patient denies headache,chest pain,palpitation and shortness of breath.Patient reports he has bilateral leg swelling which is an ongoing problem he said. Latest vital signs temperature 99, heart rate 95, blood pressure 167/82 saturation 95% on room air. Labs: WBC 18 with negative left shift of neutrophils 88, hemoglobin 8, hematocrit 27 platelet count 219. Sodium 135, BUN 33, creatinine 1.7, GFR 42 random glucose was 66, troponin 36, BNP 2030. Influenza type a and B negative SARS COVID negative. ECG result revealed sinus rhythm heart rate [address] interval. Chest x-ray result revealed no acute cardiopulmonary pathology is evident. While in the ER patient received Rocephin 1 g IV, azithromycin IV and Lasix 40 mg IV. We will admit patient for further medical management. HOSPITAL COURSE 08/24 the patient has been seen and examined, remains in the emergency room, sitting comfortably in the chair, he feels less short of breath compared to time of admission, he is alert oriented x3, denies dizziness, no headache, no chest pain, no cough, no nausea, no vomiting, no abdominal pain, no diarrhea, no constipation, no melena, no hematochezia, no hematemesis. Vital signs reviewed, blood pressure 107/59, spiked fever 101.3, saturating 98% 2 L nasal cannula. CBC shows a hemoglobin of 8.0, hematocrit 27.0, WBC 14.6, platelet count of 190. Sodium 138, potassium 4.1, BUN 33, creatinine 1.8. ProBNP 3470. Procalcitonin 1.0. Albumin 3.2. Serology test to include influenza and SARS antigen negative. UA negative leukocyte esterase, too numerous to count RBC, 2-5 WBC per high-power field. Chest x-ray no acute cardiopulmonary pathology. CT chest symmetrical dependent atelectasis in bilateral posterior basal lungs, no focal consolidation, pneumonia, pleural effusion, pneumothorax or mass, moderate cardiomegaly, mild ectatic ascending thoracic aorta measures up to 4 cm in diameter, mildly dilated pulmonary trunk measures up to 4 cm diameter, concerning for mild pulmonary artery hypertension, status post sternotomy and CABG. Continue the patient on empiric antibiotics with Rocephin and azithromycin, follow up Streptococcus pneumoniae and Legionella pneumoniae antigen, rapid strep a, we will request Pulmonary consultation. We will request Infectious Disease consultation. Follow UA, urine culture, blood cultures. Follow repeat chest x-ray in the next 24 hours. Continue the patient on furosemide 20 mg IV q.8 hours, echocardiogram to evaluate ejection fraction, Cardiology will be consulted. Follow a.m. labs. 08/25 the patient has been seen and examined, remains admitted to the medical floor, comfortable sitting in chair, alert oriented x3, hemodynamically stable, afebrile, saturating normal room air, denied chest pain, shortness shortness for breath, no nausea, no vomiting, no abdominal discomfort. Hemoglobin today 7.5, hematocrit 26.5. Creatinine 1.9. Follow iron level panel, stool occult blood. Septic workup to include Legionella antigen negative, blood cultures negative. Continue the patient on empiric IV antibiotics. Apparently the patient taking amiodarone 400 mg p.o. b.i.d., follow Cardiology input and recommendation. In the meantime we will start amiodarone 200 mg p.o. b.i.d., discussed with both the patient and the at bedside, all questions answered, agreed and understood the information provided. 08/26 the patient has been seen and examined at bedside, case discussed with the RN, no acute events overnight, during my visit comfortably in chair, hemodynamically stable, afebrile, saturating normal room air, he denied chest pain, shortness shortness for breath, no nausea, no vomiting, no abdominal discomfort. Patient would like to be discharged home. Patient has been cleared from cardiac standpoint to be discharged home today and follow up as an outpatient. Hemoglobin stable at 8.4, hematocrit 28.6, platelet count of 201. No signs of GI bleed, no melena, no hematochezia, no hematemesis. No hematuria. Creatinine stable at 1.5. Venous Doppler no evidence of DVT. Echocardiogram reported as follows: Conclusion LVEF is 45-50%. Septal bounce is present. Possible apical hypokinesis. Endocardium not well visualized. Right ventricle is moderately dilated and hypokinetic. Left atrium is severely dilated. No pericardial effusion. CT of the abdomen reported as follows: * Left PUJ calculus (2 ??? 1.2 cm) with mild left hydronephrosis. * Stable left adrenal lipoma, unchanged from prior exam. * Fatty liver. * Cardiomegaly with median sternotomy changes; dependent pulmonary interstitial markings. * Bilateral perinephric fat stranding without new focal renal lesion. * Previously reported 16 ??? 10 mm left mid-pole renal calculus remains present. * Sigmoid diverticulosis without diverticulitis; appendix normal. * Enlarged prostate (38 cc). * Comparison: PUJ calculus and hydronephrosis represent new or progressed findings compared with prior report; left adrenal lipoma stable. Ladle Liner(s): Cardiology, Infectious Disease, Pulmonary Services. Assessment/Plan: Final diagnosis Acute CHF exacerbation POA Suspected community-acquired pneumonia POA Acute leukocytosis POA Acute anemia POA Hyponatremia POA Uncontrolled diabetes POA Morbid obesity POA Hypertension. Hyperlipidemia POA Coronary Artery disease CABG x2 and aortic valve replacement POA Left PUJ calculus 1.2 cm with mild left hydronephrosis, POA PLAN: the patient has been seen and examined, remains admitted to the medical floor, comfortable sitting in chair, alert oriented x3, hemodynamically stable, afebrile, saturating normal room air, denied chest pain, shortness shortness for breath, no nausea, no vomiting, no abdominal discomfort. Hemoglobin today 7.5, hematocrit 26.5. Creatinine 1.9. Follow iron level panel, stool occult blood. Septic workup to include Legionella antigen negative, blood cultures negative. Continue the patient on empiric IV antibiotics. Apparently the patient taking amiodarone 400 mg p.o. b.i.d., follow Cardiology input and recommendation. In the meantime we will start amiodarone 200 mg p.o. b.i.d., discussed with both the patient and the at bedside, all questions answered, agreed and understood the information provided. NEURO: Minimize central acting medications as possible. Fall Precautions. Well lighted room through the day and minimize interruptions through the night to prevent acute delirium. PULMONARY: Supplemental 02 as needed BiPAP as necessary, for respiratory distress Titrate Fio2 to keep Spo2 > or = 90% DuoNebs and CPT as needed IS hourly while awake for pulmonary hygiene prn Out of bed to chair as tolerated Maintain aspiration precautions at all times CARDIOVASCULAR: Follow hemodynamics. Vital signs per facility protocol GI & NUTRITION: Continue nutritional support Aspirations precautions Prokinetic agents and laxatives as needed KIDNEYS & ELECTROLYTES: Strict monitoring of intake and output Daily weights Avoid nephrotoxic agents Monitor electrolytes and replace as needed Goal urine output of 30mL/hr or 0.5mL/kg/hr Medications to be dosed according to renal function. Avoid contrast if possible ENDOCRINE: Maintain blood glucose between 100-180 at all times. Insulin sliding scale for blood glucose management Hypoglycemia and hyperglycemia protocol in place INFECTIOUS DISEASE: Trend temperature, WBC and procalcitonin level Follow cultures, deescalate antibiotics as soon as possible. Panculture if new onset fever HEMATOLOGY & COAGULATION: Monitor H&H. Keep Hgb > 7 Transfuse 1 unit of PRBC for Hgb < 7 Transfuse 1 pack of platelets of platelets < 20, 000 Watch for any signs and symptoms of bleeding SKIN: Pressure ulcer prevention per facility protocol Specialty mattress as needed ORTHO/REHAB Continue PT/OT PRN: MEDICATIONS Tylenol 650 mg po every 4 hrs for fever zofran 4 mg IV every 6 hrs for n/v Hydralazine 5 mg IV every 4 hrs systolic pressure > 160 bowel regiment: lactulose 20 gm PO BID PRN constipation Supportive measures: Continue GI and DVT prophylaxis Disposition: Pending improvement in clinical condition All questions answered time spent: > 35 min Discharge Instructions: Patient to follow with primary care physician as an outpatient for referral to urologist as an outpatient, as well as with demolitionist. Return to hospital if condition changes. Patient had agreed and understood the information provided. Home Medications: Reported Medications Fluticasone/Umeclidin/Vilanter (Trelegy Ellipta 100-62.5-25) 100-62.5 Blst.w.dev, 1 PUFF IH DAILY for 30 Days, #1 EACH 0 Refills 08/24/25 Glucosamine/Chondro Estrada A (Glucosamine-Chondroitin Tab) 500 Mg-400 Mg Tablet, 1 EACH PO BID, TAB 08/12/25 [Prevagen] No Conflict Check, 1 CAP PO DAILY 08/12/25 Dapagliflozin Propanediol (Farxiga) 10 Mg Tablet, 10 MG PO DAILY, TAB 08/12/25 Apixaban (Eliquis) 5 Mg Tablet, 5 MG PO BID, TAB 08/12/25 Bumetanide (Bumex) 1 Mg Tab, 1 MG PO HS, TAB 08/12/25 Bumetanide (Bumex) 1 Mg Tab, 2 MG PO DAILY, TAB 08/12/25 Amiodarone HCl (Amiodarone HCl) 400 Mg Tablet, 200 MG PO BID, TAB 08/12/25 Pramipexole Di-HCl (Pramipexole Dihydrochloride) 1.5 Mg Tablet, 1 TAB PO HS for 30 Days, #30 TAB 0 Refills 05/13/25 Tirzepatide (Mounjaro) 7.5 Mg/0.5 Ml Pen.injctr, 7.5 MG SQ QWEEK 05/13/25 Hydralazine HCl (Hydralazine HCl) 100 Mg Tablet, 100 MG PO BID, TAB 05/13/25 Atorvastatin Calcium (LIPITOR) 20 Mg Tab, 1 TAB PO HS for 30 Days, #30 TAB 0 Refills 05/13/25 Sacubitril/Valsartan (Entresto 97 mg-103 mg Tablet) 97 Mg-103 Mg Tablet, 1 EACH PO DAILY, TAB 05/13/25 Aspirin (Aspirin) 81 Mg Tab.chew, 81 MG PO DAILY, TAB.CHEW 08/09/24 Omeprazole (Omeprazole) 40 Mg Capsule.dr, 40 MG PO AM, CAP 01/16/24 Spironolactone (Spironolactone) 25 Mg Tablet, 25 MG PO AM, TAB 01/16/24 Metoprolol Tartrate (Metoprolol Tartrate) 100 Mg Tablet, 150 MG PO BID, TAB 12/02/23 Metformin HCl (Metformin HCl) 1,000 Mg Tablet, 1000 MG PO HS, TAB 12/02/23 Discontinued Reported Medications Vit A/Vit C/Vit E/Zinc/Copper (Preservision Areds Softgel) 4,296-226 Capsule, 1 EACH PO HS, CAP 08/12/25 Magnesium Oxide (Magnesium) 400 Mg Magnesium Capsule, 400 MG PO DAILY, CAP 08/12/25 Time spent arranging discharge: 31-60 minutes NADIYA OKEEFE MD Aug 26, 2025 13:25
--- NOTE | 2025-08-26 14:55 | PN ---
INFECTIOUS DISEASE PROGRESS NOTE Date of Service: Aug 26, 2025 SUBJECTIVE: From Infectious Disease standpoint patient can be discharged on Vantin 200 mg and doxycycline 100 mg x 7 days. Prescription was written. PHYSICAL EXAM EYES: Anicteric. Pupils equal and reactive. HENT: No oral thrush seen, moist Oral mucosa. NECK: Supple, no JVD or thyromegaly. LUNGS: Good air entry. No rales, no rhonchi. CARDIOVASCULAR: S1, S2 regular. No murmur heard. ABDOMEN: Soft, non tender, bowel sounds present, no organomegaly. CENTRAL NERVOUS SYSTEM: Awake, alert, oriented x 3. SKIN: No rashes, no swelling. LYMPHATICS: No peripheral lymphadenopathy. MUSCULOSKELETAL: No joint swelling, erythema or tenderness. EXTREMITIES: No cyanosis or clubbing. BACK: No deformity, no pressure ulcer. GENITOURINARY: No dysuria or hematuria. Vital Sign (Last 12 Hours) 08/26/25 08/26/25 08/26/25 08/26/25 04:10 07:33 08:00 08:00 Temp 98.4 98.4 Pulse 66 71 74 Resp 19 20 18 B/P (MAP) 136/66 149/77 Pulse Ox 96 95 95 O2 Delivery Room Air N/A Room Air Room Air Room Air* O2 Flow Rate 0 FiO2 21 21 08/26/25 12:00 Temp 98.1 Pulse 68 Resp 18 B/P (MAP) 145/79 Pulse Ox 94 O2 Delivery Room Air Intake & Output (last 24hrs) 08/25/25 08/25/25 08/26/25 15:00 23:00 07:00 Intake Total 480 ml 500.0 ml Output Total 1500 ml 400 ml Balance -1020 ml 100.0 ml LABS: Laboratory: Test 08/26/25 11:10 08/26/25 06:24 08/25/25 04:50 08/24/25 17:13 Range/Units Whole Blood Glucose 115 H 70-110 MG/DL White Blood Count 8.4 4.8-10.8 K/uL Red Blood Count 3.68 L 4.50-6.20 MIL/uL Hemoglobin 8.4 L 14.0-18.0 g/dL Hematocrit 28.6 L 42-54 % Mean Corpuscular Volume 77.7 L 79-99 fL Mean Corpuscular Hemoglobin 22.8 L 27.0-33.0 pg Mean Corpuscular Hemoglobin Concent 29.4 L 32.0-36.0 g/dL Red Cell Distribution Width 17.2 H 11.0-15.5 % Platelet Count 201 130-400 K/uL Mean Platelet Volume 11.1 H 7.5-10.5 fL Nucleated Red Blood Cells 0.0 0.0-0.19 % Sodium Level 142 136-145 mmol/L Potassium Level 3.4 L 3.5-5.1 mmol/L Chloride Level 106 101-111 mmol/L Carbon Dioxide Level 25 21-32 mmol/L Blood Urea Nitrogen 32 H 7-18 mg/dL Creatinine 1.5 H 0.5-1.3 mg/dL Glomerular Filtration Rate Calc 48 >90 mL/min Random Glucose 103 70-105 mg/dL Total Calcium 8.1 L 8.5-10.1 mg/dL Magnesium Level 2.20 1.80-2.40 mg/dL Total Bilirubin 0.3 0.2-1.0 mg/dL Aspartate Amino Transf (AST/SGOT) 25 10-37 U/L Alanine Aminotransferase (ALT/SGPT) 28 12-78 U/L Alkaline Phosphatase 49 L 50-136 U/L Total Protein 6.9 6.0-8.3 g/dL Albumin 3.1 L 3.5-5.0 g/dL Blood Gas Specimen Type Arterial Arterial Blood pH 7.397 7.350-7.450 Arterial Blood Partial Pressure CO2 39 35-48 mmHg Arterial Blood Partial Pressure O2 69.2 L 83.0-108.0 mmHg Arterial Blood HCO3 23.6 21.0-28.0 mmol/L Arterial Blood Oxygen Saturation 92.1 L 94.0-98.0 % Arterial Blood Base Excess -1.1 -2.0-3.0 mmol/L Hemoglobin (Blood Gas) 8.1 L 13.5-17.5 g/dL Sodium (Blood Gas) 138 136-145 MMOL/L Bedside Potassium (Blood Gas) 3.6 3.4-4.5 MMOL/L Bedside Chloride (Blood Gas) 105 98-107 MMOL/L Bedside Glucose (Blood Gas) 123 H 65-95 MG/DL Bedside Ionized Calcium (Blood Gas) 1.12 L 1.15-1.33 MMOL/L Bedside Lactic Acid (Blood Gas) 1.00 H 0.36-0.75 MMOL/L Blood Gas Temperature 37.0 35.5-37.0 CELSIUS Blood Gas Vent Mode ROOMAIR ROOM AIR FiO2 21.0 % Blood Gas Specimen Comment RB CAROLYN WARE Group A Streptococcus Rapid negative NEGATIVE DIAGNOSTICS / RADIOLOGY: PATIENT: CESAR BYRNE ACCT: [id number] LOC: [facility] U: [id number] AGE/SX: 74/M ROOM: 314 RE08/23/[address]: NADIYA OKEEFE MD : 1950 BED: 1 DIS: STATUS: ADM IN TLOC: SPEC: [id number] PRATIK: 08/24/25 STATUS: RES REQ: [id number] RECD: 08/24/[address]: SUDHIR DOHERTY D[employer]OX WORKER SOURCE: SPUTUM ENTR: 08/23/[address]: HUA STORY MD SPDESC: EXPECTO SELF,REFERRAL ORDERED: RESP CULTURE Procedure Result Chasidy Date-Time GRAM STAIN Final 08/24/25-1316 [facility] GRAM STAIN RESULT: GOOD SPECIMEN [ <10 SEC's/LPF and >25 PMN's/LPF ] 2+ GRAM POSITIVE COCCI RESPIRATORY CULTURE Preliminary 08/25/25-1210 [facility] COLONY DESCRIPTION: REPORT 1: 2+ ORAL TREVER ; STUDIES TO CONTINUE ASSESSMENT: Suspect community-acquired pneumonia. Leukocytosis, resolving. Acute renal failure. Diabetes mellitus, uncontrolled. Morbid obesity. PLAN: From Infectious Disease standpoint patient can be discharged on Vantin 200 mg and doxycycline 100 mg x 7 days. Prescription was written. This case was reviewed and discussed with my supervising physician Dr. Beltrán and the above assessment and plan was formulated and agreed upon. ATTESTATION BY PHYSICIAN I have seen and examined the patient. I reviewed the documentation, medical decision making, and treatment plan as noted by the mid-level provider above. I agree with the findings and plan of care. MINH BELTRÁN MD, MIRTA L [facility] Aug 26, 2025 14:55
[2025-08-27] MEDS ORDERED: BUMETANIDE 1 MG TAB PO SCH ×2 (09:00→14:00)
== END 2025-08-26 15:35 | disposition home or self-care (01) | DRG 871 ==
LOC: EDH 19:17 → EDHIP 22:55 → 3CH 08-25 02:00
PROVIDERS: ADMIT Internal Medicine; ATTEND Internal Medicine
DX: A41.89 Other specified sepsis (principal); I50.43 Acute on chronic combined systolic (congestive) and diastolic (congestive) heart failure; J96.90 Respiratory failure, unspecified, unspecified whether with hypoxia or hypercapnia; J18.9 Pneumonia, unspecified organism; D63.8 Anemia in other chronic diseases classified elsewhere; I27.21 Secondary pulmonary arterial hypertension; E87.1 Hypo-osmolality and hyponatremia; G25.81 Restless legs syndrome; I48.0 Paroxysmal atrial fibrillation; J44.0 Chronic obstructive pulmonary disease with (acute) lower respiratory infection; N17.9 Acute kidney failure, unspecified; Z79.01 Long term (current) use of anticoagulants; Z68.41 Body mass index [BMI] 40.0-44.9, adult; I11.0 Hypertensive heart disease with heart failure; I77.810 Thoracic aortic ectasia; I35.0 Nonrheumatic aortic (valve) stenosis; J98.11 Atelectasis; I44.0 Atrioventricular block, first degree; D17.79 Benign lipomatous neoplasm of other sites; E66.01 Morbid (severe) obesity due to excess calories; E78.00 Pure hypercholesterolemia, unspecified; Z96.653 Presence of artificial knee joint, bilateral; G47.33 Obstructive sleep apnea (adult) (pediatric); Z53.8 Procedure and treatment not carried out for other reasons; I25.10 Atherosclerotic heart disease of native coronary artery without angina pectoris; Z82.0 Family history of epilepsy and other diseases of the nervous system; Z95.3 Presence of xenogenic heart valve; Z82.49 Family history of ischemic heart disease and other diseases of the circulatory system; Z83.3 Family history of diabetes mellitus; Z95.1 Presence of aortocoronary bypass graft; Z98.84 Bariatric surgery status
CPT/HCPCS: 36415; 36600; 71045; 71250; 74176; 80048; 80053; 81001; 82435; 82803; 82947; 82948; 83540; 83550; 83605; 83735; 83880; 84132; 84145; 84295; 84484; 85018; 85025; 85027; 85378; 87040; 87071; 87205; 87426; 87449; 87804; 87880; 93005; 93308; 93970; 94640; 94664; 96374; 96375; 99285; G0378; J0456; J0696; J1815; J1938; J2405